=== PATIENT | female | born 1970 | race Caucasian/White ===

== ENCOUNTER → 2016-05-09 | Outpatient (CLI) | payer OTHER ==
--- NOTE | 2016-05-09 16:13 | PN ---
DATE OF SERVICE: 05/09/2016 FOLLOW-UP VISIT This is a 46-year-old lady who has been followed in the sleep center. She is here to discuss results of her diagnostic sleep study and plan of treatment. We discussed results of diagnostic sleep study in detail. No significant respiratory abnormalities were documented. Total apnea-hypopnea index was only 1.2. No abnormalities of respiration in REM sleep. Loud snoring was documented. No oxygen desaturation. Lowest oxygen level for the whole night was 90.4%. Significant amount of periodic limb movements was documented, and we discussed that with the patient. SSRI might increase the risk for periodic limb movements. [place] Sleepiness Scale today is around 8. MEDICATIONS: 1. Lexapro. 2. Prilosec. PHYSICAL EXAMINATION: Patient in no distress. VITAL SIGNS: BP 137/74. HR 58, RR 16, temperature 98. Weight 257. BMI 43.4. Oxygen saturation at room air 100%. HEENT: PERRLA, EOMI. Evaluation of oropharynx showed tongue protrudes midline. Extremely low position of soft palate. NECK: Supple. No JVD. Thyroid is not palpable. LUNGS: Clear to percussion and to auscultation. Good air exchange. No wheezing or rhonchi. HEART: S1, S2 regular. No murmurs, gallops or rubs. ABDOMEN: Obese. EXTREMITIES: No clubbing or cyanosis. HYDROPONICS GROWER: Awake, alert, and oriented x3. Cranial nerves 2 to 7 intact. There is no fasciculation or atrophy noted. No focal deficits observed. IMPRESSION: 1. No significant respiratory abnormalities by results of diagnostic sleep study; scoring was done by 4% oxygen desaturation criteria for hypopneas. 2. Significant, close to severe, periodic limb movements were documented. 3. Obesity; body mass index 43.9. 4. Possible depression. 5. Acid reflux. 6. Status post tonsillectomy. 7. Status post partial hysterectomy. 8. Status post appendectomy. PLAN: 1. Patient will be started on treatment with Mirapex 0.125 mg 1 to 2 tablets at bedtime. 2. Please check iron profile, including ferritin level. Low level of iron may increase risk for periodic limb movements. 3. SSRIs also may increase risk for periodic limb movements. 4. Sometimes patient has difficulties falling asleep at home. We may consider using trazodone at bedtime. It is an antidepressant also and it does not increase the risk for periodic limb movements. 5. No driving if feeling any sleepiness. Thank you very much for allowing me to participate in the management of your patient. Sincerely, Rc Norman MD, PhD, FAASM. Diplomat of [place] [employer], Sleep Medicine Board by [place] [employer], [place] [employer]
== END | disposition home or self-care (01) ==
LOC: SLEEP 13:22
PROVIDERS: ATTEND Internal Medicine
DX: G47.33 Obstructive sleep apnea (adult) (pediatric) (principal); E66.9 Obesity, unspecified; Z68.41 Body mass index [BMI] 40.0-44.9, adult; K21.9 Gastro-esophageal reflux disease without esophagitis; Z98.890 Other specified postprocedural states; Z79.899 Other long term (current) drug therapy

== ENCOUNTER → 2016-06-17 | Outpatient (CLI) | payer OTHER ==
[2016-06-17 11:53] VITALS: BMI 43.3
== END | disposition home or self-care (01) ==
LOC: BARWHC3 08:52
PROVIDERS: ATTEND Surgery Plastic and Reconstructive Surgery
DX: Z71.3 Dietary counseling and surveillance (principal); E66.01 Morbid (severe) obesity due to excess calories; Z68.41 Body mass index [BMI] 40.0-44.9, adult
CPT/HCPCS: 97802

== ENCOUNTER → 2016-06-27 | Outpatient (CLI) | payer OTHER ==
[2016-06-27 14:17] VITALS: BP 140/87; PULSE 69; TEMP 97.5; BMI 44.4
--- NOTE | 2016-08-19 08:08 | PN ---
DATE OF SERVICE: 06/27/2016 CHIEF COMPLAINT: History of morbid obesity. HISTORY OF PRESENT ILLNESS: Suzanne Santamaria is a 46-year-old female who came to the Bariatric Center December 2015. At her height of 5 feet 3-3/4 inches today she comes in weighing 256 pounds. She is 116 pounds overweight. Body mass index is 44.4. She has undergone medical supervised weight loss as well as Weight Watchers without success. She developed comorbidities, including obstructive sleep apnea, hypertension, including osteoarthritis of bilateral hips and knees. She is investigating her bariatric options. Incidentally, she also had a previous upper endoscopy which is consistent with a hiatal hernia. Now she now she presents for further evaluation and management. PAST MEDICAL HISTORY: 1. Morbid obesity. 2. Hypertension. 3. Osteoarthritis of the lower back. 4. Osteoarthritis of the bilateral knees. 5. Depression. 6. Anxiety. PAST SURGICAL HISTORY: 1. Appendectomy. 2. Hysterectomy. 3. Tonsillectomy. 4. Upper endoscopy. MEDICATIONS: 1. Wellbutrin. 2. Nutritional supplement. 3. Omeprazole. ALLERGIES: VICODIN INCLUDING PROPOXYPHENE. SOCIAL HISTORY: Former smoker. FAMILY HISTORY: Pertinent for morbid obesity. REVIEW OF SYSTEMS: CONSTITUTIONAL: Weight gain of 7 pounds in 6 months. Body mass index now up to 44.4. She is 116 pounds overweight. [place] body weight for her 5 foot 3 and 3/4 inch frame is 140 pounds. RESPIRATORY: History of obstructive sleep apnea. HEENT: Denies troubles with vision or hearing. No reports of dysphagia. ENDOCRINE: No reports of thyroid disorders or diabetes. RESPIRATORY: Has troubles with snoring. No reports of asthma. CARDIOVASCULAR: Denies chest palpitations. Also no reports of heart attack. Has hypertension. GASTROINTESTINAL: Has gastroesophageal reflux disease. Fatty food intolerance. She still has her gallbladder. She has trouble with orange juice. No reports of change in bowel habits. MUSCULOSKELETAL: Has bilateral feet pain including plantar fasciitis and tendinitis. Also has heel spurs. Also reports calf problems and lower back pain for which she received injections. NEURO: No reports of stroke or seizure disorders. PSYCH: History of depression including anxiety. HEMATOLOGIC: No reports of easy bruising or bleeding. PHYSICAL EXAM: VITAL SIGNS: 97.5, 69, 140/87, 16, 5-foot 3 3/4 inch frame, 256 pounds. Body mass index 44.4. ABDOMEN: Soft, nontender, nondistended. GENERAL: Well-developed, pleasant female in no acute distress. HEENT: No clubbing, cyanosis, or edema. NECK: Supple without lymphadenopathy. CHEST: Nonlabored respirations. Equal bilateral excursions. CARDIOVASCULAR: Regular rate and rhythm. MUSCULOSKELETAL: No clubbing, cyanosis or edema. NEURO: No focal or lateralizing signs. Cranial nerves II through XII grossly within normal limits. PSYCH: Appropriate affect, alert and oriented to person, place and time. LABS: Hemoglobin was normal. 14.9. Glucose was low at 72. Hemoglobin A1c was normal at 5.1. Ferritin was elevated at 278. LDL was elevated at 106. HDL elevated at 77. EKG reviewed demonstrated sinus bradycardia. Pathology report was consistent with chronic gastritis. H-pylori test was negative. STUDIES: Upper endoscopy demonstrated findings consistent with diaphragmatic hiatal hernia, 4 cm, Hill grade 3 lower esophageal valve identified. LA grade C erosive esophagitis is identified. ASSESSMENT: 1. Morbid obesity due to excess calories. 2. Body mass index reduced from 44.9 to 44.4. 3. Gastroesophageal reflux disease. 4. Osteoarthritis bilateral feet. 5. Osteoarthritis of the lower back. 6. Plantar fasciitis. 7. Prior history of attempted weight loss. 8. Family history of morbid obesity. 9. Hypertensive heart disease. 10. Obstructive sleep apnea. 11. Diaphragmatic hiatal hernia. 12. Family history of gallbladder disease. 13. Right upper quadrant pain. PLAN: 1. We have gone over bariatric options with her severity of gastroesophageal reflux disease including options among the band, sleeve and Aftab-en-Y gastric bypass. 2. To best address gastroesophageal reflux disease she has elected for a Aftab-en -Y gastric bypass. 3. Benefits and risks, including nutritional deficiencies, leaks, need for further surgery, and possibility of stricture were also reviewed in detail. 2. Inpatient hospitalization over 2 nights advised. 3. Deep venous thrombosis prophylaxis. 4. Antibiotic prophylaxis. 5. She will need CPAP treatment while inpatient. 6. She also reports moderate right upper quadrant abdominal pain including intolerance to fatty foods as well as a family history of gallbladder disease. As a result, she is also looking for cholecystectomy, at the time of the procedure. 7. Possibility of a sleeve gastrectomy was also reviewed as well. [facility]
== END | disposition home or self-care (01) ==
LOC: BARWHC3 09:06
PROVIDERS: ATTEND Surgery Plastic and Reconstructive Surgery
DX: Z01.818 Encounter for other preprocedural examination (principal); E66.01 Morbid (severe) obesity due to excess calories; Z68.41 Body mass index [BMI] 40.0-44.9, adult; I10 Essential (primary) hypertension; F32.9 Major depressive disorder, single episode, unspecified; F41.9 Anxiety disorder, unspecified
CPT/HCPCS: 99211

== ENCOUNTER → 2016-07-04 | Outpatient (CLI) | payer OTHER ==
--- NOTE | 2016-07-04 14:30 | US ---
EXAMINATION TYPE: US abdomen limited DATE OF EXAM: 07/04/2016 1:46 PM COMPARISON: NONE CLINICAL HISTORY: R10.11 RUQ pain. EXAM MEASUREMENTS: Liver Length: 15.5 cm Gallbladder Wall: 0.2 cm CBD: 0.2 cm Right Kidney: 10.5 x 4.2 x 4.8 cm Patient of large body habitus with extensive overlying midline bowel gas. Pancreas: Obscured by bowel gas Liver: There is a coarse heterogeneous echotexture, there is no mass evident. Gallbladder: wnl Evidence for sonographic Pollard's sign: no CBD: not well seen due to overlying bowel. Right Kidney: wnl , cortical medullary differentiation is maintained No evident ascites IMPRESSION: Exam is limited technically. There may be underlying fatty infiltration of the liver.
== END | disposition home or self-care (01) ==
LOC: RADUSWWP 12:56
PROVIDERS: ATTEND Surgery Plastic and Reconstructive Surgery
DX: K76.0 Fatty (change of) liver, not elsewhere classified (principal)
CPT/HCPCS: 76705

== ENCOUNTER → 2016-07-04 | Outpatient (CLI) | payer OTHER ==
[2016-07-04 14:18] LABS: Basophils % (A) 0 %; CH 32.3; CHCM 33.2; Eosinophils # (A) 0.1 k/uL (0-0.7); Eosinophils % (A) 2 %; HCT 47.1 % (34.0-46.0); HDW 2.23; HGB 15.3 gm/dL (11.4-16.0); Luc # (Auto) 0.07; Luc % (Auto) 1; Lymphocytes # (A) 1.7 k/uL (1.0-4.8); Lymphocytes % (A) 25 %; MCH 31.8 pg (25.0-35.0); MCHC 32.6 g/dL (31.0-37.0); MCV 97.7 fL (80.0-100.0); Mean Platelet Volume 6.7; Monocytes # (A) 0.3 k/uL (0-1.0); Monocytes % (A) 4 %; Neutrophils # (A) 4.5 k/uL (1.3-7.7); Neutrophils % (A) 68 %; RBC 4.82 m/uL (3.80-5.40); RDW 12.4 % (11.5-15.5); WBC 6.7 k/uL (3.8-10.6); WBC (Perox) 6.26
[2016-07-04 14:36] LABS: ALT 29 U/L (9-52); AST 22 U/L (14-36); Alkaline Phosphatase 57 U/L (38-126); Anion Gap 9 mmol/L; Blood Urea Nitrogen 14 mg/dL (7-17); Calcium 9.4 mg/dL (8.4-10.2); Carbon Dioxide 27 mmol/L (22-30); Chloride 107 mmol/L (98-107); Glucose 84 mg/dL (74-99); Non-African American GFR(MDRD) >60 (>60 ml/min/1.73 sqM); Potassium 4.2 mmol/L (3.5-5.1); Sodium 143 mmol/L (137-145); Total Bilirubin 0.7 mg/dL (0.2-1.3); Total Protein 7.2 g/dL (6.3-8.2)
== END | disposition home or self-care (01) ==
LOC: LABPAT 13:50
PROVIDERS: ATTEND Surgery Plastic and Reconstructive Surgery
DX: Z01.810 Encounter for preprocedural cardiovascular examination (principal); Z01.812 Encounter for preprocedural laboratory examination
CPT/HCPCS: 36415; 80053; 85025

== ENCOUNTER → 2016-07-17 | Outpatient (CLI) | payer OTHER | END | disposition home or self-care (01) | LOC: LABPAT 08:21 | PROVIDERS: ATTEND Anesthesiology | DX: Z53.9 Procedure and treatment not carried out, unspecified reason (principal) ==

== ENCOUNTER 2016-07-19 05:51 | Inpatient (IN) | payer OTHER ==
--- NOTE | 2016-07-19 05:27 | P.GSHP ---
History of Present Illness H&P Date: 07/19/16 CHIEF COMPLAINT: Morbid obesity. HISTORY OF PRESENT ILLNESS: Suzanne Santamaria is a 45-year-old female who presents with history of morbid obesity. She has completed medical supervised weight loss for over 6 months. She reports developing hypertension. She also reports lower back pain. As a result she has been getting injections along her back. She also reports knee pain. She has feet pain. She also reports plantar fasciitis and tendinitis including heel spurs. She also has calf problems. She has sleep apnea, which has been untreated. She has tried Weight Watchers including medical supervised weight loss, the 17-day diet and diet books. She also tried Adipex with minimal improvement of her weight. At her present height, her weight is 255 pounds. The most weight loss she experienced was at least 25 pounds now with moderate weight gain. Her personal goal is get down to between 150 to 170 pounds. At her height of 5 feet 3 inches, her ideal body weight is 140 pounds. She is 115 pounds overweight. Body mass index is 45.3. She comes in with troubles also with reflux disease and cholecystitis. Now she presents for further evaluation and management. Separately, her concerns also include fatty food intolerance. PAST MEDICAL HISTORY: 1. Morbid obesity. 2. Hypertension. 3. Osteoarthritis of the lower back. 4. Osteoarthritis of the bilateral knees. 5. Depression. 6. Anxiety. PAST SURGICAL HISTORY: 1. Appendectomy. 2. Hysterectomy. 3. Tonsillectomy. MEDICATIONS: 1. Wellbutrin. 2. Nutritional supplement. 3. Omeprazole. ALLERGIES: 1. Penicillin. 2. Vicodin. 3. Propoxyphene. SOCIAL HISTORY: Former smoker. FAMILY HISTORY: Pertinent for morbid obesity. REVIEW OF SYSTEMS: CONSTITUTIONAL: [place] body weight of 140 pounds. Her height of 5 feet 3, weight 255ounds. Body mass index 44.9. HEENT: Denies troubles with vision or hearing. No reports of dysphagia. ENDOCRINE: No reports of thyroid disorders or diabetes. RESPIRATORY: Has troubles with snoring. No reports of asthma. CARDIOVASCULAR: Denies chest palpitations. Also no reports of heart attack. Has hypertension. GASTROINTESTINAL: Has gastroesophageal reflux disease. Fatty food intolerance. She still has her gallbladder. She has trouble with orange juice. No reports of change in bowel habits. MUSCULOSKELETAL: Has bilateral feet pain including plantar fasciitis and tendinitis. Also has heel spurs. Also reports calf problems and lower back pain for which she received injections. NEURO: No reports of stroke or seizure disorders. PSYCH: History of depression including anxiety. HEMATOLOGIC: No reports of easy bruising or bleeding. PHYSICAL EXAM: VITAL SIGNS: 98.3, 64, 143/78; 5 foot 3, 255 pounds. Body mass index 44.3. GENERAL: Well-developed, pleasant female in no acute distress. HEENT: No clubbing, cyanosis, or edema. NECK: Supple without lymphadenopathy. CHEST: Nonlabored respirations. Equal bilateral excursions. CARDIOVASCULAR: Regular rate and rhythm. ABDOMEN: Soft, nontender, nondistended. MUSCULOSKELETAL: No clubbing, cyanosis or edema. NEURO: No focal or lateralizing signs. Cranial nerves II through XII grossly within normal limits. ASSESSMENT: 1. Morbid obesity due to excess calories. 2. Body mass index 45.3. 3. Gastroesophageal reflux disease. 4. Osteoarthritis bilateral feet. 5. Osteoarthritis of the lower back. 6. Plantar fasciitis. 7. Prior history of attempted weight loss. 8. Family history of morbid obesity. 9. Hypertensive heart disease. 10. Obstructive sleep apnea. 11. Chronic cholecystitis. PLAN: 1. We have gone over the 8-page second generation bariatric consent form involving benefits and risks of a gastric bypass including but not limited to possible sleeve gastrectomy, bleeding, infection, conversion to open, leaks, strictures, nutritional deficiencies, bowel obstruction, inadequate weight loss and need for further surgery including minimally invasive surgery such as but not limited robotic laparoscopic assisted techniques. 2. She has cholecystitis and will proceed with cholecystectomy at the time of her operation. 3. Inpatient hospitalization anticipated for 2 nights. 4. DVT prophylaxis. 5. Antibiotic prophylaxis. 6. She has completed her pre-op and post-op diet classes. 7. A 2-week low caloric restriction diet has been reviewed. Past Medical History Past Medical History: GERD/Reflux, Osteoarthritis (OA) Additional Past Medical History / Comment(s): JOINT PAIN, HEEL SPURS, OCCASIONAL GERD History of Any Multi-Drug Resistant Organisms: None Reported Past Surgical History: Appendectomy, Hysterectomy, Tonsillectomy Additional Past Surgical History / Comment(s): egd Past Anesthesia/Blood Transfusion Reactions: No Reported Reaction, Motion Sickness Past Psychological History: Anxiety, Depression Additional Psychological History / Comment(s): emotional eater Smoking Status: Former smoker Past Alcohol Use History: Occasional Additional Past Alcohol Use History / Comment(s): SOCIAL SMOKER FROM AGE [age] YEARS OLD Past Drug Use History: None Reported - Past Family History Mother Family Medical History: Asthma, Rheumatoid Arthritis (RA) Medications and Allergies Home Medications Medication Instructions Recorded Confirmed Type Plexus Supplement 1 tab PO DAILY 01/01/16 07/10/16 History Escitalopram [Lexapro] 10 mg PO DAILY 06/27/16 07/10/16 History Pramipexole Di-HCl [Mirapex] 0.125 mg PO HS 06/27/16 07/10/16 History Allergies Allergy/AdvReac Type Severity Reaction Status Date / Time penicillin G Allergy Rash/Hives Verified 07/10/16 10:12 hydrocodone [From Vicodin] AdvReac Nausea & Verified 07/10/16 10:12 Vomiting propoxyphene AdvReac Nausea & Verified 07/10/16 10:12 [From Darvocet-N] Vomiting
[~2016-07-19 05:51] MED LIST: ALVIMOPAN 12 MG CAPSULE PO ONE; CHLORHEXIDINE GLUCONATE 15 ML CUP MUCOUS MEM ONE; CLINDAMYCIN 900 MG in DEXTROSE 5% IN WATER 50 ML IVPB ONE; DEXAMETHASONE SOD PHOSPHATE 10 MG/ML 1 ML VIAL IV ONE; ENOXAPARIN 40 MG/0.4 ML SYRINGE SQ ONE; ENOXAPARIN 40 MG/0.4 ML SYRINGE SQ STA; GENTAMICIN 400 MG in SODIUM CHLORIDE 0.9% 100 ML IVPB ONE; MIDAZOLAM 2 MG/2 ML VIAL IV PRN; ONDANSETRON 4 MG/2 ML VIAL IVP ONE; PANTOPRAZOLE 40 MG/10 ML VIAL IV STA; SCOPOLAMINE 1.5MG/72HR PATCH TRANSDERM ONE; fentaNYL (PF) 50 MCG/ML 2 ML AMP IV PRN
[2016-07-19] MEDS ORDERED: LIDOCAINE 1% 20 ML VIAL (10MG/ML) FOR IV START SQ ONE (06:41)
[2016-07-19] MEDS: LACTATED RINGERS 1,000 ML IV SCH (07:20)
[2016-07-19] MEDS ORDERED: HYDROmorphone (PF) 1 MG/ML ONE (07:40)
[2016-07-19] MEDS ORDERED: fentaNYL (PF) 50 MCG/ML 2 ML AMP ONE (07:40)
[2016-07-19] MEDS ORDERED: PROPOFOL 10 MG/ML 20 ML VIAL IV ONE (07:40)
[2016-07-19] MEDS ORDERED: LIDOCAINE 1% INJ 10MG/ML (20 ML MDV) ONE (07:40)
[2016-07-19] MEDS ORDERED: SUCCINYLCHOLINE CHLORIDE 100 MG/5 ML SYR IV ONE (07:40)
[2016-07-19] MEDS ORDERED: ROCURONIUM BROMIDE 10 MG/ML 10 ML VIAL IV ONE (07:40)
[2016-07-19] MEDS ORDERED: ePHEDrine 50 MG/ML 1 ML AMP ONE (07:40)
[2016-07-19] MEDS ORDERED: NEOSTIGMINE 1 MG/ML 10 ML VIAL ONE (07:40)
[2016-07-19] MEDS ORDERED: GLYCOPYRROLATE 0.2 MG/ML 2 ML VIAL ONE (07:40)
[2016-07-19] MEDS ORDERED: BUPIVACAIN-EPI 0.25%-1:200,000 30 ML VIAL SQ ONE (09:21)
[2016-07-19] MEDS ORDERED: LACTATED RINGERS 1,000 ML IV ONE ×3 (11:51→14:01)
[2016-07-19] MEDS ORDERED: NALOXONE 0.4 MG/ML 1 ML VIAL IV PRN ×2 (14:32→14:34)
[2016-07-19] MEDS ORDERED: ONDANSETRON 4 MG/2 ML VIAL IVP PRN (14:32)
[2016-07-19] MEDS ORDERED: MIDAZOLAM 2 MG/2 ML VIAL IVP ONE (14:44)
[2016-07-19] MEDS ORDERED: ONDANSETRON 4 MG/2 ML VIAL IVP ONE (15:24)
[2016-07-19] MEDS: ALBUTEROL NEBULIZED 2.5 MG/3 ML INHALATION SCH ×2 (17:38→20:49)
[2016-07-19] MEDS: SIMETHICONE 40 MG/0.6 ML DROPS 2,000 MG/30 ML BOTTLE PO SCH ×2 (17:39→23:01)
[2016-07-19] MEDS: HYOSCYAMINE ORAL DROPS 1.875 MG/15 ML BOTTLE PO SCH ×2 (17:41→23:01)
[2016-07-19] MEDS: 0.9% NACL WITH KCL 20 MEQ/L 1,000 ML IV SCH (17:42)
[2016-07-19 18:11] VITALS: BMI 43.9
--- NOTE | 2016-07-19 18:44 | P.PCN ---
Date of Procedure: 07/19/16 Preoperative Diagnosis: Morbid obesity, chronic cholecystitis Postoperative Diagnosis: Same, chronic cholecystitis Procedure(s) Performed: Robotic-assisted laparoscopic cholecystectomy, robotic-assisted laparoscopic Aftab-en-Y gastric bypass 150 cm antegastric antecolic Aftab limb with 25 mm Orvil , with intraoperative esophagogastrojejunoscopy Implants: Anesthesia: GETA, local Surgeon: Regla Gamez Estimated Blood Loss (ml): 10 Pathology: other (Gallbladder) Condition: stable Disposition: floor Indications for Procedure: Operative Findings: 33 cm distance from xiphoid to pubis, ports placed at 20 cm distal to the xiphoid, 2-45 blue robotic vivek for gastric pouch with 6 Covidien 60 mm purple loads to divide large posterior stomach, negative leak test, no tension or portion along the gastrojejunal anastomosis, Turner and jejunostomy mesenteric defect closed, jejunostomy with wen-lumen of 90 mm Description of Procedure:
[2016-07-19] MEDS: fentaNYL PCA 300 MCG/30 ML SYRINGE IV PRN (19:38)
--- NOTE | 2016-07-19 19:47 | P.OP ---
Date of Procedure: 07/19/16 Preoperative Diagnosis: Postoperative Diagnosis: Procedure(s) Performed: Implants: Indications for Procedure: Operative Findings: Description of Procedure: DESCRIPTION OF PROCEDURE(S): SURGEON: SUJATA DUKES MD GLOBE MOUNTER: NURIA DENNY PREOPERATIVE DIAGNOSES: 1. Morbid obesity due to excess calories. 2. Body mass index 45.3. 3. Gastroesophageal reflux disease. 4. Osteoarthritis bilateral feet. 5. Osteoarthritis of the lower back. 6. Plantar fasciitis. 7. Prior history of attempted weight loss. 8. Family history of morbid obesity. 9. Hypertensive heart disease. 10. Obstructive sleep apnea. 11. Chronic cholecystitis. 12. Family history of gallbladder disease. POSTOPERATIVE DIAGNOSES: 1. Morbid obesity due to excess calories. 2. Body mass index 45.3. 3. Gastroesophageal reflux disease. 4. Osteoarthritis bilateral feet. 5. Osteoarthritis of the lower back. 6. Plantar fasciitis. 7. Prior history of attempted weight loss. 8. Family history of morbid obesity. 9. Hypertensive heart disease. 10. Obstructive sleep apnea. 11. Chronic cholecystitis. 12. Family history of gallbladder disease. OPERATION: 1. Robotic assisted laparoscopic Aftab-en-Y gastric bypass, 15 0cm antecolic antegastric Aftab limb, with 25 mm EEA. 2. Intraoperative esophagogastrojejunoscopy. 3. Robotic-assisted laparoscopic multiport cholecystectomy. ANESTHESIA: 60 mL 0.25% Marcaine with epinephrine. ESTIMATED BLOOD LOSS: 10 mL SPECIMENS REMOVED: Gallbladder. COMPLICATIONS: None. INDICATIONS: The patient is a very pleasant, 46-year-old female who presents with morbid obesity as her body mass index was 45.3. [place] body weight of 140 pounds for her height of 5 feet 3 inches. Today she comes in weighing 255 pounds. All surgical options for morbid obesity had been described using the [place] bariatric surgery collaborative comorbidity resolution including complication risk score. The patient had elected for a gastric bypass with possible sleeve gastrectomy. A second-generation bariatric consent form was described in detail including the possibility of protein malnutrition, leaks, gastrojejunal stricture, venous thrombosis, need for further surgery for which she demonstrated understanding. Benefits and risks of the procedure were described at length. Informed consent was obtained. DESCRIPTION: The patient was brought into the operating room theater. She was placed on a split leg table. Preoperatively she had received Lovenox subcutaneously for DVT prophylaxis. Additionally she had undergone Peridex oral solution as an oral decontaminant. After general induction, the abdomen was prepped and draped in standard sterile fashion. A Wolfe catheter was placed. Ioban draping was placed along the abdomen. A robotic da Leia Si system was prepped and primed. Initial attention was brought to the cholecystectomy portion of her procedure. The xiphoid to pubis was measured of 33 cm. At 20 cm from the xiphoid to just below the umbilicus, proposed port sites were marked with indelible marker along the anterior axillary line bilaterally, mid axillary line bilaterally with each ports were marked 10 cm from each other. The assistant golf course superintendent port was marked along the right lateral abdominal wall. The robotic stapler port was marked for the right midclavicular line. A 5 mm 0 degrees laparoscopic trocar entry was performed along the left upper quadrant. The abdomen was insufflated to 15 mmHg pressure she tolerated well. Diagnostic laparoscopy demonstrated no injury to bowel, viscera, or mesentery. The liver surface was unremarkable. No injury had occurred to the small bowel or viscera. Along the hiatus no evidence of large prominent hiatal hernia was encountered. Next, one 8 mm robotic port and 12-mm robot stapler port was were placed along the right mid abdomen. The camera 12-mm port extended length was maintained along the epigastrium. Two 8 mm port was placed along the left upper abdominal wall after exchanging the 5 mm port. The lateral port was exchanged for a bariatric length trocar. Please note that the ports were placed at least 20 cm away from the target anatomy of the gallbladder. Care was taken to check each robotic arms were safely away from collision with the bed or the patient. At the epigastrium, a median sized Neeta liver retractor was placed under direct visualization with the Iron Integration Specialist placed over the right shoulder of the patient. The additional third robotic arm was placed along the left aspect of the patient. The patient was repositioned in reverse Trendelenburg position after lowering the bed. The robot was docked along the right lateral abdomen. Using a grasper for arm 3, a grasper for arm 2, including hook cautery for arm 1 , the robotic system was docked and primed as described. Instruments were interchanged by the assistant golf course superintendent including hook cautery, Bovie cautery and large clip appliers. I had sat at the console. The gallbladder fundus was retracted over the dome of the liver. Initial attention was brought to the infundibulum which was gently retracted in the inferior lateral approach. Using hook cautery, the cystic duct including the cystic artery was carefully skeletonized. Using a large clip extractor filler, 2 clips were placed proximally, and 2 clip was placed distally along the cystic duct and then divided with cautery. Care was taken to avoid any injury to the biliary tree as the common bile duct was clearly visualized during this portion of dissection. Next, the cystic artery was clipped twice proximally, once distally and then cauterized. Electro-Bovie cautery was used to remove the gallbladder from the hepatic fossa without decompression of the gallbladder. Hemostasis was checked and found to be adequate. The specimen was docked along the right upper abdomen for preparation of the gastric bypass portion of her case. The robotic instruments were exchanged for a vessel sealer including atraumatic graspers. The transverse mesocolon, including the omentum, was reflected towards the upper abdomen. The ligament of Treitz was identified and measured 60 cm antegrade and marked using 2-0 Vicryl and SH needle. The jejunum was divided at the 60 cm point above the suture measurement. The biliopancreatic limb was held in place by the robotic arm. The Aftab limb was then measured 150 cm distally to avoid tension along the proposed gastrojejunal anastomosis. At 150 cm along the anti-mesenteric border of the Aftab limb, a jejunojejunostomy was proposed whereby enterotomies were created along the biliopancreatic limb including the Aftab limb using a Bovie cautery. A stay suture of 2-0 Vicryl was placed to align and create the anastomosis. The enterotomies along the anti-mesenteric borders were created followed by unidirectional fire from the patient's right side using 2 - 45 mm blue load Smart technology robotic stapler. The jejunojejunostomy was found to be hemostatic. The enterotomy was closed after horizontal mattress stitch of 2-0 silk used to elevate the enterotomy followed by closure with the robotic stapler blue load. Attention was now brought to the creation of the gastrojejunostomy. Moderate large dilated arterial vessels including veins were identified along the lesser curvature of the stomach. Along the lesser curvature of the stomach between the second and third veins, dissection was made along the retrogastric space to allow first firing of the robotic stable. Dense posterior gastric adhesions with moderate-sized arterial vessels were identified, hence increasing the complexity of her case. As moderate large vessels were identified after second firing of the robotic staple, the rest of the case was proceeded laparoscopic to maintain safety of the operation. I re-scrubbed into the case. The da Leia system was undocked. The robotic stapler port along the right midclavicular line was exchanged for a 12 mm port. Similarly, the left midclavicular port was exchanged for a 12 mm port. Bariatric length angled 45 scope was used for the rest the case. To address her moderate adhesions along the posterior stomach, Sonicision including fenestrated graspers were used for additional dissection of her gastric pouch that proceeded over 45 minutes of the case. Once adequately mobilized, an initial firing using a 60 mm purple load was performed toward the angle of His. To completely divide the pouch from the remnant stomach, a total of 6 - 60 mm purple loads were fired towards the angle of His for moderate and redundant posterior stomach. Hemostasis was excellent along the gastric pouch including the remnant stomach. The patient was then prepared for placement of a Orvil. The patient was Mallampati 2/3. A 25-mm Orvil was selected for placement by the nurse social work job titles. The Orvil tubing was placed anterior to the staple line of the gastric pouch and brought out through the left inferior lateral port. The Orvil was then carefully and successfully navigated with the help of the nurse social work job titles into the gastric pouch. The sutures were identified and divided. The tubing was from the 25 mm anvil. Using aseptic technique all instruments including port sites were exchanged. As the Orvil had been placed, the blind jejunal limb was brought proximally into the upper abdomen. The transverse mesocolon was previously cleaved using the robotic vessel sealer. No torsion was found upon the Aftab limb. No tension was identified as the limb was brought along the upper abdomen. The blind jejunal limb was opened using a cordless Harmonic scalpel. The 25-mm EEA stapler was brought through the left anterior lateral port site from the left side. Please note that the trocars from the Orvil tubing, including the port, were removed to minimize contamination from the oral fatimah. The EEA stapler was brought through the open jejunal limb and its needle was deployed at the antimesenteric border where the anvil were mated for approximately 1 minute upon firing. The stapler was removed after irrigating the shaft of the instrument with warm normal saline. Donuts were found to be intact and thick on both sides. The open jejunal limb defect was closed using a 60 mm kline load after releasing any tension from the blind jejunal limb. Hemostasis was checked with Sonicision along the blind jejunal limb mesentery. Care was taken to avoid any long blind limb to avoid candycane syndrome. No reinforcement sutures were needed along the gastrojejunal anastomosis. Closure of the mesenteric defects was performed, initially of the [place] defect using 2-0 silk on an Endo Stitch and a Lapra-Ty and the jejunojejunostomy mesenteric defect. I then went to the head of the bed to perform the esophagogastrojejunoscopy and a leak test. An Olympus gastroscope was passed along the posterior oropharynx which was unremarkable for any injury to the vocal cords. The scope was passed down to the proximal portion of the pouch, whereby no active bleeding was encountered. Excellent visualization of the gastrojejunostomy anastomosis, including the Aftab limb was encountered with endoscopic image obtained. The anastomosis was found to be patent. The gastrointestinal tract was desufflated. No evidence of intraoperative leak was encountered as the gastric pouch and anastomosis were submerged under normal saline solution. I then went back to the bedside of the patient, whereby with coordinated effort of the assistant golf course superintendent, irrigation was aspirated from the upper abdominal cavity. Tisseel was placed circumferentially over the anastomosis of the gastrojejunostomy. All instruments and pneumoperitoneum were evacuated from the abdominal cavity. The port correlating with the EEA stapler device was copiously irrigated with 3 L of warm normal saline solution and 50 mL of hydrogen peroxide. The fascial defect was closed using a Demetrius Johns and 0 Vicryl with 2 separate sutures. A quarter inch [place] drain was placed along the EEA stapler site and tacked using 2-0 nylon. The rest of incisions were reapproximated using 3-0 Vicryl for deep subcutaneous tissue and dermis followed by 4-0 Monocryl in a running subcuticular fashion. For local anesthetic, 0.25% Marcaine with epinephrine was infiltrated along the skin for postop analgesia. Dermabond was applied to the skin. OptiFoam dressing was placed along the EEA stapler site. At the end of the procedure, needle, sponge and instrument count had been verified correct by the cardiovascular surgical tech. She had tolerated the procedure well and was taken to the postanesthesia unit in stable condition. Intraoperative films and findings were reviewed with the patient's family. FINDINGS: 1. Negative intraoperative esophagogastrojejunoscopy leak test. 2. No fatty liver disease or hepatomegaly. 3. All defects including jejunojejunostomy [place] defects were closed. 4. Total of 8 staplers used including 2 - 45 mm blue robot vivek and 6 - 60 mm Covidien tri-stapler purple loads used to create the gastric pouch. 5. Gastrojejunostomy created using 25 mm Orvil. 6. Jejunojejunostomy created with 90 mm wen-lumen 7. Xiphoid to pubis height of 33 cm.
[2016-07-20] MEDS: fentaNYL PCA 300 MCG/30 ML SYRINGE IV PRN (02:46)
[2016-07-20] MEDS: 0.9% NACL WITH KCL 20 MEQ/L 1,000 ML IV SCH ×2 (05:16→06:08)
[2016-07-20] MEDS: HYOSCYAMINE ORAL DROPS 1.875 MG/15 ML BOTTLE PO SCH ×2 (05:17→12:06)
[2016-07-20] MEDS: SIMETHICONE 40 MG/0.6 ML DROPS 2,000 MG/30 ML BOTTLE PO SCH ×2 (05:17→12:07)
[2016-07-20 06:57] LABS: Basophils % (A) 0 %; CH 32.6; CHCM 33.8; Eosinophils % (A) 0 %; HCT 39.6 % (34.0-46.0); HDW 2.35; HGB 13.5 gm/dL (11.4-16.0); Luc # (Auto) 0.09; Luc % (Auto) 1; Lymphocytes # (A) 0.9 k/uL (1.0-4.8); Lymphocytes % (A) 6 %; MCHC 34.1 g/dL (31.0-37.0); MCV 96.9 fL (80.0-100.0); Mean Platelet Volume 7.1; Monocytes # (A) 0.5 k/uL (0-1.0); Monocytes % (A) 3 %; Neutrophils # (A) 13.5 k/uL (1.3-7.7); Neutrophils % (A) 90 %; RBC 4.08 m/uL (3.80-5.40); RDW 12.8 % (11.5-15.5); WBC (Perox) 15.41
[2016-07-20 07:05] LABS: Anion Gap 7 mmol/L; Blood Urea Nitrogen 9 mg/dL (7-17); Calcium 8.2 mg/dL (8.4-10.2); Carbon Dioxide 24 mmol/L (22-30); Chloride 107 mmol/L (98-107); Magnesium 1.8 mg/dL (1.6-2.3); Non-African American GFR(MDRD) >60 (>60 ml/min/1.73 sqM); Phosphorous 3.1 mg/dL (2.5-4.5); Potassium 4.3 mmol/L (3.5-5.1); Sodium 138 mmol/L (137-145)
[2016-07-20] MEDS: ALBUTEROL NEBULIZED 2.5 MG/3 ML INHALATION SCH ×3 (07:42→15:15)
[2016-07-20] MEDS ORDERED: 1: MVI, ADULT NO.4 WITH VIT K 10 ML, THIAMINE 100 MG, FOLIC ACID 1 MG, POTASSIUM CHLORID IV SCH ×6 (08:00)
[2016-07-20] MEDS ORDERED: PANTOPRAZOLE 40 MG/10 ML VIAL IV SCH (09:00)
[2016-07-20] MEDS ORDERED: ENOXAPARIN 40 MG/0.4 ML SYRINGE SQ SCH (09:00)
[2016-07-20] MEDS ORDERED: HYDROcodone/APAP 15 ML SOLUTION PO STA (11:28)
[2016-07-20] MEDS ORDERED: CLINDAMYCIN 900 MG in DEXTROSE 5% IN WATER 50 ML IVPB STA ×2 (11:37)
[2016-07-20] MEDS ORDERED: GENTAMICIN 400 MG in SODIUM CHLORIDE 0.9% 100 ML IVPB ONE (11:38)
--- NOTE | 2016-07-20 13:03 | P.PN ---
Subjective Principal diagnosis: Morbid obesity The patient is a 46-year-old female who underwent a robotic-assisted cholecystectomy and gastric bypass. Abdominal pain is controlled. She had passed flatus and have bowel movements. She complains of burning sensation along her legs including severe restless leg syndrome. She takes Mirapex at home. Separately nausea is controlled. Her is bedside. She has been ambulating. She is using her incentive spirometer. Objective - Vital Signs Vital signs: Vital Signs Temp 98.1 F 07/20/16 07:00 Pulse 75 07/20/16 08:00 Resp 16 07/20/16 08:00 BP 140/67 07/20/16 07:00 Pulse Ox 92 L 07/20/16 07:44 Intake & Output 07/19/16 07/20/16 07/20/16 18:59 06:59 18:59 Intake Total 4466 1725 Output Total 610 Balance 3856 1725 Weight 116.12 kg 116.12 kg Intake: IV 4466 Intake, IV Titration 1575 Amount 0.9% NaCl with KCl 20 Meq 1575 /l 1,000 ml @ 150 mls/hr IV .[id number] [facility] Rx#: [id number] Oral 150 Output: Urine 590 Estimated Blood Loss 20 Other: Voiding Method Toilet Toilet Toilet # Voids 1 1 # Bowel Movements 1 - Exam GENERAL: Well developed and in no acute distress. Pleasant. HEENT: No sclera icterus. Extraocular movements grossly intact. Moist buccal mucosa. Head is atraumatic, normocephalic. Hears conversational speech. No nasal drainage. NECK: Supple without lymphadenopathy. No JV distention. CHEST: Non-labored respirations and equal bilateral excursions. CARDIOVASCULAR: Regular rate and rhythm. Palpable 2+ radial pulses. ABDOMEN: Soft, nontender. Nondistended. Incisions laparoscopic site clean dry and intact with Dermabond. Optifoam dressing along left upper quadrant clean dry and intact. MUSCULOSKELETAL: No clubbing, cyanosis or edema. NEUROLOGIC: No focal or lateralizing signs. PSYCH: Appropriate affect. Alert and oriented to person, place and time. - Labs CBC & Chem 7: 07/20/16 06:13 07/20/16 06:13 Labs: Abnormal Lab Results - Last 24 Hours (Table) 07/20/16 07/20/16 Range/Units 06:13 06:13 WBC 15.0 H (3.8-10.6) k/uL Neutrophils # 13.5 H (1.3-7.7) k/uL Lymphocytes # 0.9 L (1.0-4.8) k/uL Calcium 8.2 L (8.4-10.2) mg/dL Assessment and Plan (1) Morbid obesity with BMI of 45.0-49.9, adult Status: Acute (2) Restless leg syndrome Status: Acute (3) Sleep apnea Status: Acute (4) Gastroesophageal reflux Status: Acute (5) Hypertension Status: Acute (6) S/P gastric bypass Status: Acute (7) Cholecystitis Status: Acute (8) S/P cholecystectomy Status: Acute Plan: 1. I went over her medications for discharge including continue with Mirapex, omeprazole. 2. She reports nausea with codeine. We'll try [place] elixir and observe prior to discharge. Otherwise Tylenol for home. She will avoid Aleve, ibuprofen, aspirin which was counseled to her and her at bedside. 3. Start protein shake diet for Friday was reviewed for optimal nutrition. 4. Continue with ambulation as well as incentive spirometry at home. She is asked to avoid laying down for prolonged period of time to decrease risk for DVTs and pulmonary embolism. 5. She is pending completion of her 24 hours of antibiotics as her case had been contaminated. 6. Anticipated follow-up in the bariatric center within 48-72 hours of discharge.
--- NOTE | 2016-07-20 14:14 | P.DS ---
Providers Date of admission: 07/19/16 05:51 Expected date of discharge: 07/20/16 Attending physician: Regla Gamez Primary care physician: Stated None - Discharge Diagnosis(es) (1) Cholecystitis Current Visit: Yes Status: Acute (2) Gastroesophageal reflux Current Visit: Yes Status: Acute (3) Hypertension Current Visit: Yes Status: Acute (4) Morbid obesity with BMI of 45.0-49.9, adult Current Visit: Yes Status: Acute (5) Restless leg syndrome Current Visit: Yes Status: Acute (6) S/P cholecystectomy Current Visit: Yes Status: Acute (7) S/P gastric bypass Current Visit: Yes Status: Acute (8) Sleep apnea Current Visit: Yes Status: Acute Hospital Course: POSTOPERATIVE DIAGNOSES: 1. Morbid obesity due to excess calories. 2. Body mass index 45.3. 3. Gastroesophageal reflux disease. 4. Osteoarthritis bilateral feet. 5. Osteoarthritis of the lower back. 6. Plantar fasciitis. 7. Prior history of attempted weight loss. 8. Family history of morbid obesity. 9. Hypertensive heart disease. 10. Obstructive sleep apnea. 11. Chronic cholecystitis. 12. Family history of gallbladder disease. The patient is a 46-year-old female who presented for a gastric bypass. She completed the bariatric program assessment. Robotic-assisted approach was performed as she also had a cholecystectomy. Postoperatively, she had been ambulating, tolerating fluids, tolerating diet, passing flatus and had a bowel movement. Her pain was well-controlled with [place] elixir which was tried prior to discharge. Postoperative antibiotics was continued given her case being contaminated from her gastric bypass. Discharge instructions were carefully reviewed including immediate follow-up at the bariatric center within 48-72 hours upon discharge. Her was was at bedside and she verbalized understanding of the discharge instructions and activities. Pertinent Studies: None. Procedures: OPERATION: 1. Robotic assisted laparoscopic Aftab-en-Y gastric bypass, 15 0cm antecolic antegastric Aftab limb, with 25 mm EEA. 2. Intraoperative esophagogastrojejunoscopy. 3. Robotic-assisted laparoscopic multiport cholecystectomy. Patient Condition at Discharge: Stable Plan - Discharge Summary New Discharge Prescriptions: HYDROcodone/APAP [[place] Elixir 7.5-325Mg/15Ml] 15 ml PO Q6HR PRN #480 ml PRN Reason: Pain Omeprazole 40 mg PO DAILY #90 capsule. Discharge Medication List Escitalopram [Lexapro] 10 mg PO DAILY 06/27/16 [History] Pramipexole Di-HCl [Mirapex] 0.125 mg PO HS 06/27/16 [History] HYDROcodone/APAP [[place] Elixir 7.5-325Mg/15Ml] 15 ml PO Q6HR PRN #480 ml [Rx] Omeprazole 40 mg PO DAILY #90 capsule. 07/20/16 [Rx] Follow up Appointment(s)/Referral(s): Regla Gamez MD [STAFF PHYSICIAN] - 07/24/16 1:30 pm (Bariatric Center) Patient Instructions/Handouts: How to Use an Incentive Spirometer (GEN), Laparoscopic Cholecystectomy (DC), Nutrition after Bariatric Surgery (GEN), Aftab-en-Y Gastric Bypass (DC) Activity/Diet/Wound Care/Special Instructions: Ok to shower no bath tub soaks. Start protein shakes on . No lifting over 4 pounds in 4 weeks. Stay well hydrated with fluids 64 ounces daily. Ambulate at least 4 times daily. Please use incentive spirometer. Discharge Disposition: HOME SELF-CARE
[2016-07-20 15:02] VITALS: BP 136/89; TEMP 98.5
[2016-07-20 15:15] VITALS: PULSE 78; RESP 17
--- NOTE | 2016-07-21 11:11 | P.PN ---
Progress Note - Text Patient called at home. She is tolerating diet. She is passing flatus. Pain is controlled. Patient advised to start her protein shakes by tomorrow. She will follow-up in the bariatric center.
== END 2016-07-20 15:33 | disposition home or self-care (01) | DRG 621 ==
LOC: 2ORWHC 05:51 → 3SUR 14:53
PROVIDERS: ADMIT Surgery Plastic and Reconstructive Surgery; ATTEND Surgery Plastic and Reconstructive Surgery
PROC: 0DJ08ZZ Inspection of Upper Intestinal Tract, Via Natural or Artificial Opening Endoscopic (ICD-10-PCS; principal; 2016-07-19 07:30)
PROC: 0D164ZA Bypass Stomach to Jejunum, Percutaneous Endoscopic Approach (ICD-10-PCS; principal; 2016-07-19 07:30)
PROC: 8E0W4CZ Robotic Assisted Procedure of Trunk Region, Percutaneous Endoscopic Approach (ICD-10-PCS; principal; 2016-07-19 07:30)
PROC: 0FT44ZZ Resection of Gallbladder, Percutaneous Endoscopic Approach (ICD-10-PCS; principal; 2016-07-19 07:30)
DX: E66.01 Morbid (severe) obesity due to excess calories (principal); I11.9 Hypertensive heart disease without heart failure; K81.1 Chronic cholecystitis; F32.9 Major depressive disorder, single episode, unspecified; F41.9 Anxiety disorder, unspecified; G25.81 Restless legs syndrome; G47.33 Obstructive sleep apnea (adult) (pediatric); K21.9 Gastro-esophageal reflux disease without esophagitis; M17.0 Bilateral primary osteoarthritis of knee; M47.9 Spondylosis, unspecified; M72.2 Plantar fascial fibromatosis; M77.30 Calcaneal spur, unspecified foot; Z68.42 Body mass index [BMI] 45.0-49.9, adult; Z79.899 Other long term (current) drug therapy; Z87.891 Personal history of nicotine dependence; Z88.5 Allergy status to narcotic agent; Z88.0 Allergy status to penicillin
CPT/HCPCS: 80051; 82310; 82565; 83735; 84100; 84520; 85025; 86850; 86900; 86901; 88304; 94640; 94760; 94762

== ENCOUNTER → 2016-07-24 | Outpatient (CLI) | payer OTHER ==
[2016-07-24 14:06] VITALS: BP 141/87; PULSE 69; RESP 16; TEMP 97.5; BMI 42.5
--- NOTE | 2016-08-23 12:49 | P.PN ---
Progress Note - Text DATE OF SERVICE: 07/24/16 CHIEF COMPLAINT: Followup gastric bypass. HISTORY OF PRESENT ILLNESS: Suzanne Santamaria is a 46 year old female status post robotic assisted laparoscopic cholecystectomy including gastric bypass. She reports doing fairly well. No reports of abdominal pain. No reports of nausea or vomiting. She is drinking fluids. She reports having bowel movements. At her height of 5 feet 3-3/4 inch frame, her ideal body weight is 140 pounds. Her highest weight is 256 pounds. She is now down to 245 pounds. She has lost 11 pounds. Her body mass index reduced from 44.4 down to 42.5. Percent excess weight loss is 9%. She is still 105 pounds overweight. PHYSICAL EXAM: VITAL SIGNS: 97.5, 69, 16, 141/87. 5 feet 3 3/4 inch frame, 245 pounds, body mass index 42.5. GENERAL: Well-developed, pleasant female in no acute distress. HEENT: No clubbing, cyanosis, or edema. NECK: Supple without lymphadenopathy. CHEST: Nonlabored respirations. Equal bilateral excursions. CARDIOVASCULAR: Regular rate and rhythm. ABDOMEN: Soft, nontender, nondistended. Incisions are clean, dry, and intact. No signs of infection. MUSCULOSKELETAL: No clubbing, cyanosis or edema. NEURO: No focal or lateralizing signs. Cranial nerves II through XII grossly within normal limits. ASSESSMENT: 1. Morbid obesity due to excess calories. 2. Body mass index reduced from 44.4 down to 42.5. 3. Status post Aftab-En-Y gastric bypass. 4. Status post cholecystectomy. PLAN: 1. She will start a protein diet, goal protein intake of 75 grams daily. 2. She will continue with Mylicon drops. 3. Recommend fluid intake of over 64 ounces daily. 4. Recommend follow up in approximately one week.
== END | disposition home or self-care (01) ==
LOC: BARWHC3 13:22
PROVIDERS: ATTEND Surgery Plastic and Reconstructive Surgery
DX: E66.01 Morbid (severe) obesity due to excess calories (principal); Z68.41 Body mass index [BMI] 40.0-44.9, adult; Z98.84 Bariatric surgery status; Z71.3 Dietary counseling and surveillance
CPT/HCPCS: 97803; 99211

== ENCOUNTER → 2016-07-31 | Outpatient (CLI) | payer OTHER ==
[2016-07-31 15:32] VITALS: BP 139/91; PULSE 59; RESP 16; TEMP 98.2; BMI 41.0
--- NOTE | 2016-08-27 15:37 | P.PN ---
Progress Note - Text DATE OF SERVICE: 07/31/16 CHIEF COMPLAINT: Followup gastric bypass. HISTORY OF PRESENT ILLNESS: Suzanne Santamaria is a 46 year old female status post robotic assisted laparoscopic cholecystectomy including gastric bypass, . She reported developing clear drainage from her left upper quadrant incision. No reports of foul-smelling discharge. No reports of cellulitis or infections. She reports no constipation. No reports of abdominal pain. No reports of nausea or vomiting. At her height of 5 feet 3-3/4 inch frame, her ideal body weight is 140 pounds. Her highest weight is 256 pounds. She is now down to 237 pounds. She has lost 19 pounds in 2 weeks. Her body mass index reduced from 44.4 down to 41.0. Percent excess weight loss is 17% . She is 97 pounds overweight. PHYSICAL EXAM: VITAL SIGNS: 5 feet 3 3/4 inch frame, 237 pounds, body mass index 41.0 Vital Signs Temp 98.2 F 07/31/16 15:29 Pulse 59 L 07/31/16 15:29 Resp 16 07/31/16 15:29 BP 139/91 07/31/16 15:29 Pulse Ox GENERAL: Well-developed, pleasant female in no acute distress. HEENT: No clubbing, cyanosis, or edema. NECK: Supple without lymphadenopathy. CHEST: Nonlabored respirations. Equal bilateral excursions. CARDIOVASCULAR: Regular rate and rhythm. ABDOMEN: Soft, nontender, nondistended. Incisions are clean, dry, and intact. No signs of infection. No active drainage noted along the left upper quadrant incision. MUSCULOSKELETAL: No clubbing, cyanosis or edema. NEURO: No focal or lateralizing signs. Cranial nerves II through XII grossly within normal limits. ASSESSMENT: 1. Morbid obesity due to excess calories. 2. Body mass index reduced from 44.4 down to 41.0 3. Status post Aftab-En-Y gastric bypass. 4. Status post cholecystectomy. PLAN: 1. She is doing very well despite having a cholecystectomy and gastric bypass. 2. Continue goal protein shakes over 65-75 g daily. 3. Recommend follow-up 1 month postop.
== END | disposition home or self-care (01) ==
LOC: BARWHC3 14:07
PROVIDERS: ATTEND Surgery Plastic and Reconstructive Surgery
DX: Z09 Encounter for follow-up examination after completed treatment for conditions other than malignant neoplasm (principal); E66.01 Morbid (severe) obesity due to excess calories; Z68.41 Body mass index [BMI] 40.0-44.9, adult; Z98.84 Bariatric surgery status; Z90.49 Acquired absence of other specified parts of digestive tract
CPT/HCPCS: 99211

== ENCOUNTER → 2016-10-16 | Outpatient (CLI) | payer OTHER ==
[2016-10-16 13:36] VITALS: BMI 36.1
[2016-10-16 14:00] VITALS: BP 130/71; PULSE 71; RESP 16; TEMP 98.2
[2016-10-16 15:11] LABS: INR 1.1 (<1.2)
[2016-10-16 15:15] LABS: CH 32.7; CHCM 32.4; HCT 43.1 % (34.0-46.0); HDW 2.14; HGB 13.6 gm/dL (11.4-16.0); MCHC 31.6 g/dL (31.0-37.0); MCV 101.4 fL (80.0-100.0); Macrocytosis Slight; Mean Platelet Volume 7.9; RBC 4.25 m/uL (3.80-5.40); WBC 7.8 k/uL (3.8-10.6)
[2016-10-16 15:27] LABS: ALT 37 U/L (9-52); AST 23 U/L (14-36); Alkaline Phosphatase 61 U/L (38-126); Anion Gap 10 mmol/L; Blood Urea Nitrogen 20 mg/dL (7-17); Calcium 9.2 mg/dL (8.4-10.2); Carbon Dioxide 22 mmol/L (22-30); Chloride 107 mmol/L (98-107); Cholesterol 144 mg/dL (<200); Glucose 90 mg/dL (74-99); HDL Cholesterol 54 mg/dL (40-60); Iron 49 ug/dL (37-170); Non-African American GFR(MDRD) >60 (>60 ml/min/1.73 sqM); Potassium 4.1 mmol/L (3.5-5.1); Sodium 139 mmol/L (137-145); Total Bilirubin 0.4 mg/dL (0.2-1.3); Total Protein 6.5 g/dL (6.3-8.2)
[2016-10-16 15:36] LABS: % Iron Saturation 18.6 % (20-50); Total Iron Binding Capacity 264 ug/dL (265-497)
[2016-10-16 16:31] LABS: Vitamin B12 601 pg/mL (239-931)
[2016-10-16 18:16] LABS: Hemoglobin A1C 5.3 % (4.2-6.1)
[2016-10-19 21:00] LABS: Selenium 129 mcg/L (63-160)
--- NOTE | 2016-11-23 04:29 | P.PN ---
Progress Note - Text DATE OF SERVICE: 10/16/16 CHIEF COMPLAINT: Followup gastric bypass. HISTORY OF PRESENT ILLNESS: Suzanne Santamaria is a 46 year old female status post robotic assisted laparoscopic cholecystectomy including gastric bypass, . She is 3 months out. She complains of plateau with weight loss. She has occasional heartburn at night. She reports that her hands or feet are cold. She also reports sciatica. She is exercising moderately. She is tolerating diet. No reports of nausea or vomiting. At her height of 5 feet 3-3/4 inch frame, her ideal body weight is 140 pounds. Her highest weight is 256 pounds. She is now down to 209 pounds. She has lost 47 pounds lifetime. Recent weight loss of 20 pounds in 2.5 months. Her body mass index reduced from 44.4 down to 36.2. Percent excess weight loss is 41%. She is 97 pounds overweight. PHYSICAL EXAM: VITAL SIGNS: 5 feet 3 3/4 inch frame, 209 pounds, body mass index 36.2 Vital Signs Temp 98.2 F 10/16/16 13:58 Pulse 71 10/16/16 13:58 Resp 16 10/16/16 13:58 BP 130/71 10/16/16 13:58 Pulse Ox GENERAL: Well-developed, pleasant female in no acute distress. HEENT: No clubbing, cyanosis, or edema. NECK: Supple without lymphadenopathy. CHEST: Nonlabored respirations. Equal bilateral excursions. CARDIOVASCULAR: Regular rate and rhythm. ABDOMEN: Soft, nontender, nondistended. Incisions granulated. No palpable incisional hernias. MUSCULOSKELETAL: No clubbing, cyanosis or edema. NEURO: No focal or lateralizing signs. Cranial nerves II through XII grossly within normal limits. ASSESSMENT: 1. Morbid obesity due to excess calories. 2. Body mass index reduced from 44.4 down to 36.2. 3. Status post Aftab-En-Y gastric bypass. 4. Status post cholecystectomy. 5. Gastroesophageal reflux disease improved. 6. Osteoarthritis bilateral feet. 7. Osteoarthritis of the lower back. 8. Plantar fasciitis. 9. Hypertensive heart disease, improved. 10. Obstructive sleep apnea, resolved. 11. Right upper quadrant pain, resolved following cholecystectomy. PLAN: 1. Recommend bariatric panel as she is almost 3 months out. 2. With her plateau, she is exercising daily. Encourage rest. 3. She has pain along her feet which may be plantar fasciitis. Recommend balance shoe support. 4. Follow-up in the [place] office.
== END | disposition home or self-care (01) ==
LOC: BARWHC3 13:06
PROVIDERS: ATTEND Surgery Plastic and Reconstructive Surgery
DX: Z48.815 Encounter for surgical aftercare following surgery on the digestive system (principal); E66.01 Morbid (severe) obesity due to excess calories; K21.9 Gastro-esophageal reflux disease without esophagitis; M19.071 Primary osteoarthritis, right ankle and foot; M19.072 Primary osteoarthritis, left ankle and foot; M47.816 Spondylosis without myelopathy or radiculopathy, lumbar region; M72.2 Plantar fascial fibromatosis; I11.9 Hypertensive heart disease without heart failure; D50.8 Other iron deficiency anemias; E89.1 Postprocedural hypoinsulinemia; K90.89 Other intestinal malabsorption; E44.0 Moderate protein-calorie malnutrition; E55.9 Vitamin D deficiency, unspecified; K74.1 Hepatic sclerosis; N19 Unspecified kidney failure; K50.90 Crohn's disease, unspecified, without complications; Z68.36 Body mass index [BMI] 36.0-36.9, adult; Z87.19 Personal history of other diseases of the digestive system; Z90.49 Acquired absence of other specified parts of digestive tract; Z98.84 Bariatric surgery status
CPT/HCPCS: 36415; 80053; 80061; 82306; 82525; 82607; 82728; 82746; 83036; 83540; 83550; 83735; 83970; 84100; 84134; 84255; 84425; 84443; 84590; 84630; 85027; 85610; 85730; 97803; 99211

== ENCOUNTER 2016-10-31 06:56 | Day surgery (SDC) | payer OTHER ==
[2016-10-30 12:02] VITALS: BMI 34.6
[~2016-10-31 06:56] MED LIST changes: -ALVIMOPAN 12 MG CAPSULE PO ONE; -CHLORHEXIDINE GLUCONATE 15 ML CUP MUCOUS MEM ONE; -CLINDAMYCIN 900 MG in DEXTROSE 5% IN WATER 50 ML IVPB ONE; -DEXAMETHASONE SOD PHOSPHATE 10 MG/ML 1 ML VIAL IV ONE; -ENOXAPARIN 40 MG/0.4 ML SYRINGE SQ ONE; -ENOXAPARIN 40 MG/0.4 ML SYRINGE SQ STA; -GENTAMICIN 400 MG in SODIUM CHLORIDE 0.9% 100 ML IVPB ONE; +LACTATED RINGERS 1,000 ML IV SCH; +LIDOCAINE 1% 20 ML VIAL (10MG/ML) FOR IV START INTRADERMA PRN; -MIDAZOLAM 2 MG/2 ML VIAL IV PRN; -ONDANSETRON 4 MG/2 ML VIAL IVP ONE; -PANTOPRAZOLE 40 MG/10 ML VIAL IV STA; -SCOPOLAMINE 1.5MG/72HR PATCH TRANSDERM ONE; -fentaNYL (PF) 50 MCG/ML 2 ML AMP IV PRN
[2016-10-31] MEDS ORDERED: LACTATED RINGERS 1,000 ML IV ONE (07:05)
[2016-10-31 07:15] VITALS: TEMP 97.1
--- NOTE | 2016-10-31 07:30 | P.GSHP ---
History of Present Illness H&P Date: 10/31/16 CHIEF COMPLAINT: GERD HISTORY OF PRESENT ILLNESS: The patient is a 46-year-old female who presents reports gastroesophageal reflux disease. Upper endoscopy was offered for further evaluation and management. PAST MEDICAL HISTORY: Please see list. PAST SURGICAL HISTORY: Please see list. MEDICATIONS: Please see list. ALLERGIES: Please see list. SOCIAL HISTORY: No illicit drug use FAMILY HISTORY: No reports of Crohn disease or ulcerative colitis. REVIEW OF ORGAN SYSTEMS: CONSTITUTIONAL: No reports of fevers or chills. GI: Denies any blood in stools or constipation. PHYSICAL EXAM: VITAL SIGNS: Stable GENERAL: Well-developed and pleasant in no acute distress. HEENT: No scleral icterus. Extraocular movements grossly intact. Moist buccal mucosa. NECK: Supple without lymphadenopathy. CHEST: Unlabored respirations. Equal bilateral excursions. CARDIOVASCULAR: Regular rate and rhythm. Distal 2+ pulses. ABDOMEN: Soft, nondistended. MUSCULOSKELETAL: No clubbing, cyanosis, or edema. ASSESSMENT: 1. Gastroesophageal reflux disease PLAN: 1. Recommend proceeding with an upper endoscopy Past Medical History Past Medical History: GERD/Reflux, Osteoarthritis (OA) Additional Past Medical History / Comment(s): , restless leg syndrome. History of Any Multi-Drug Resistant Organisms: None Reported Past Surgical History: Appendectomy, Bariatric Surgery, Hysterectomy, Tonsillectomy Additional Past Surgical History / Comment(s): egd, GASTRIC BYPASS Past Anesthesia/Blood Transfusion Reactions: No Reported Reaction, Motion Sickness Smoking Status: Former smoker - Past Family History Mother Family Medical History: Asthma, Rheumatoid Arthritis (RA) Medications and Allergies Home Medications Medication Instructions Recorded Confirmed Type Escitalopram [Lexapro] 10 mg PO DAILY PRN 06/27/16 10/31/16 History Pramipexole Di-HCl [Mirapex] 0.125 mg PO HS 06/27/16 10/31/16 History Multivitamins, Thera [Multivitamin 1 tab PO DAILY 10/30/16 10/30/16 History (formulary)] Omeprazole 40 mg PO DAILY 10/30/16 10/31/16 History Allergies Allergy/AdvReac Type Severity Reaction Status Date / Time penicillin G Allergy Rash/Hives Verified 10/31/16 07:11 hydrocodone [From Vicodin] AdvReac Nausea & Verified 10/31/16 07:11 Vomiting propoxyphene AdvReac Nausea & Verified 10/31/16 07:11 [From Vince] Vomiting Surgical - Exam Vital Signs Temp Pulse Resp BP Pulse Ox 97.1 F L 48 L 16 141/83 99 10/31/16 07:14 10/31/16 07:14 10/31/16 07:14 10/31/16 07:14 10/31/16 07:14
[2016-10-31] MEDS ORDERED: MIDAZOLAM 2 MG/2 ML VIAL ONE (07:31)
[2016-10-31] MEDS ORDERED: PROPOFOL 10 MG/ML 20 ML VIAL IV ONE (07:31)
[2016-10-31] MEDS ORDERED: LIDOCAINE 1% INJ 10MG/ML (20 ML MDV) ONE (07:31)
--- NOTE | 2016-10-31 07:47 | P.PCN ---
Date of Procedure: 10/31/16 Preoperative Diagnosis: Postoperative Diagnosis: Procedure(s) Performed: Implants: Indications for Procedure: Operative Findings: Description of Procedure: PREOPERATIVE DIAGNOSIS: Dysphagia. Nausea with vomiting. POSTOPERATIVE DIAGNOSIS: Dysphagia. Nausea with vomiting. Gastrojejunal stricture with chronic ulcer without perforation OPERATION: Esophagogastrojejunoscopy with balloon dilatation from 15 to 20 mm. SURGEON: Regla Gamez MD ANESTHESIA: MAC. INDICATIONS: The patient is a 46-year-old female who presents with a history of dysphagia including new-onset nausea and vomiting. Benefits and risks of the procedure were described. Informed consent was obtained. DESCRIPTION: The patient was brought into the endoscopy suite and laid in the left lateral decubitus position. After a timeout was confirmed, the procedure was initiated. An Olympus gastroscope was passed along the posterior oropharynx down to the distal esophagus where the squamocolumnar junction was unremarkable. The gastric pouch was entered. A gastrojejunal stricture of 15 mm was found as the pediatric gastroscope was 8.6 mm in size. A [employer] balloon dilator was placed through the scope. Final insufflation up to 20 mm was performed with a total of 2 minutes. The scope was advanced up to 50 cm from the incisors into the Aftab limb. The mucosa of the gastrojejunal anastomosis was intact. No chronic gastrojejunal marginal ulcer was encountered. No full-thickness injury was encountered. The GI tract was desufflated. The patient tolerated the procedure well. FINDINGS: Squamocolumnar junction unremarkable at 36 cm. Stricture of approximately 15 mm encountered. No chronic gastrojejunal ulceration encountered. Successful balloon dilatation to 20 mm. Anastomosis at 44 cm from the incisors. Gastric pouch 8 cm. RECOMMENDATIONS: Upper endoscopy as needed.
[2016-10-31 08:15] VITALS: BP 122/74; PULSE 49; RESP 18
== END 2016-10-31 08:31 | disposition home or self-care (01) ==
LOC: ORWHC2ENDO 06:56
PROVIDERS: ATTEND Surgery Plastic and Reconstructive Surgery
DX: K31.89 Other diseases of stomach and duodenum (principal); Z98.84 Bariatric surgery status; K21.9 Gastro-esophageal reflux disease without esophagitis; M19.90 Unspecified osteoarthritis, unspecified site; G25.81 Restless legs syndrome; Z79.899 Other long term (current) drug therapy; Z88.0 Allergy status to penicillin; Z87.891 Personal history of nicotine dependence
CPT/HCPCS: 43245; J2250; J2001; J2704; C1726

== ENCOUNTER → 2016-12-04 | Outpatient (CLI) | payer OTHER ==
--- NOTE | 2016-12-04 13:35 | PN ---
PROGRESS NOTE DATE OF SERVICE: 12/04/2016 A 46-year-old lady who has been followed in sleep center for treatment of periodic limb movements. The patient is on treatment with Mirapex. Patient takes only 0.125 mg tablet at night, at bedtime and with this regimen, she sleeps better and she does not feel discomfort in her legs at night. Without medications, she feels some discomfort in her legs while falling asleep and also during the night. [place] Sleepiness Scale today is below 5. MEDICATIONS: Omeprazole. PHYSICAL EXAM: During physical exam, lady lady without distress. VITAL SIGNS: BP 119/79, HR 54, RR 16, height 5 feet 3-1/2 inches, weight 198, BMI 34.2, temperature 98.6, oxygen saturation room air 98%. HEENT: PERRLA, EOMI. Oropharynx low position of soft palate. NECK: Supple, no JVD. Thyroid is not palpable. LUNGS: Clear to percussion and to auscultation. Good air exchange. No wheezing or rhonchi. HEART: Short systolic murmur on the area of pulmonary artery. ABDOMEN: Soft and nontender. Bowel sounds are present. No organomegaly appreciated. EXTREMITIES: No clubbing or cyanosis. APPLIANCE TECHNICIAN: Awake, alert, and oriented X3. Cranial nerves 2 to 7 intact. There is no fasciculation or atrophy. noted. No focal deficits observed. IMPRESSION: 1. Periodic limb movements clinically on control with treatment of smallest dose of Mirapex 0.125 mg at bedtime. 2. Mild obesity. Patient lost about 60 pounds since previous visit. 3. History of depression. 4. Short systolic murmur on pulmonary artery?.. 5. Acid reflux. 6. Status post tonsillectomy. 7. Status post partial hysterectomy. 8. Status post appendectomy. PLAN: 1. Patient will continue treatment with Mirapex at bedtime. 2. Continue treatment supplement with iron. 3. Please consider to do echocardiogram. 4. Sleep hygiene with regular time in bed for 8 hours. 5. No driving if feeling any sleepiness. Thank you very much for allowing me to participate in management of your patient. Sincerely, Rc Norman MD, PhD, FAASM Diplomat of [employer] Factory Clerk of [facility] [place] MMODL / IJN: [id number] /
== END ==
LOC: SLEEP 11:16
PROVIDERS: ATTEND Internal Medicine
DX: G47.61 Periodic limb movement disorder (principal); E66.9 Obesity, unspecified; F32.9 Major depressive disorder, single episode, unspecified; K21.9 Gastro-esophageal reflux disease without esophagitis; R01.1 Cardiac murmur, unspecified; Z90.89 Acquired absence of other organs; Z90.711 Acquired absence of uterus with remaining cervical stump; Z79.899 Other long term (current) drug therapy

== ENCOUNTER → 2017-05-07 | Outpatient (CLI) | payer OTHER ==
[2017-05-07 15:47] VITALS: BMI 31.4
[2017-05-07 16:15] VITALS: BP 140/80; PULSE 50; TEMP 97.9
[2017-05-07 17:32] LABS: HCT 43.3 % (34.0-46.0); HGB 14.2 gm/dL (11.4-16.0); MCH 31.8 pg (25.0-35.0); MCHC 32.7 g/dL (31.0-37.0); MCV 97.2 fL (80.0-100.0); Mean Platelet Volume 7.1; Platelet Count 191 k/uL (150-450); RBC 4.46 m/uL (3.80-5.40); RDW 12.4 % (11.5-15.5); WBC 6.6 k/uL (3.8-10.6)
[2017-05-07 17:35] LABS: INR 1.1 (<1.2); Partial Thromboplastin Time 23.4 sec (22.0-30.0); Prothrombin Time 10.5 sec (9.0-12.0)
[2017-05-07 17:48] LABS: ALT 39 U/L (9-52); AST 29 U/L (14-36); Albumin 4.1 g/dL (3.5-5.0); Alkaline Phosphatase 81 U/L (38-126); Anion Gap 9 mmol/L; Blood Urea Nitrogen 18 mg/dL (7-17); Calcium 9.1 mg/dL (8.4-10.2); Carbon Dioxide 26 mmol/L (22-30); Chloride 105 mmol/L (98-107); Cholesterol 163 mg/dL (<200); Glucose 84 mg/dL (74-99); HDL Cholesterol 71 mg/dL (40-60); LDL Cholesterol,Calculated 78 mg/dL (0-99); Phosphorus 4.2 mg/dL (2.5-4.5); Potassium 3.9 mmol/L (3.5-5.1); Sodium 140 mmol/L (137-145); Total Bilirubin 0.4 mg/dL (0.2-1.3); Total Protein 6.7 g/dL (6.3-8.2); Triglycerides 68 mg/dL (<150)
[2017-05-08 01:08] LABS: Iron Saturation 13.62 (12.00-45.00)
[2017-05-08 01:22] LABS: Vitamin D 25 Hydroxy 43.4 ng/mL (30.0-100.0)
[2017-05-08 01:58] LABS: Hemoglobin A1C 5.2 % (4.0-6.0)
[2017-05-08 02:15] LABS: Folate, Serum >24.0 ng/mL
[2017-05-08 02:27] LABS: Parathyroid Hormone Intact 62.1 pg/mL (14.0-72.0)
[2017-05-08 16:21] LABS: Zinc, Serum 160 ug/dL (60-130)
[2017-05-09 00:55] LABS: Vitamin B1 54 ug/L (38-122)
[2017-05-09 08:41] LABS: Vitamin A 36 ug/dL (38-106)
== END ==
LOC: BARWHC3 15:05
PROVIDERS: ATTEND Surgery Plastic and Reconstructive Surgery
DX: E66.01 Morbid (severe) obesity due to excess calories (principal); E21.1 Secondary hyperparathyroidism, not elsewhere classified; E89.1 Postprocedural hypoinsulinemia; D50.9 Iron deficiency anemia, unspecified; K90.9 Intestinal malabsorption, unspecified; E55.9 Vitamin D deficiency, unspecified; K74.1 Hepatic sclerosis; N19 Unspecified kidney failure; K50.90 Crohn's disease, unspecified, without complications; Z71.3 Dietary counseling and surveillance; Z68.31 Body mass index [BMI] 31.0-31.9, adult
CPT/HCPCS: 36415; 80053; 80061; 82306; 82525; 82607; 82728; 82746; 83036; 83540; 83550; 83735; 83970; 84100; 84134; 84255; 84425; 84443; 84590; 84630; 85027; 85610; 85730; 97803; 99211

== ENCOUNTER → 2017-07-30 | Outpatient (CLI) | payer OTHER ==
[2017-07-30 15:38] VITALS: BP 140/78; PULSE 95; RESP 16; TEMP 98.3; BMI 30.6
--- NOTE | 2017-07-30 16:28 | P.PN ---
Subjective Progress Note Date: 07/30/17 HPI: No reports of fatigue. She reports that she still needs her omeprazole. She still has reflux. She is very active. She is 1 year out. She reports abdominal pain low in the abdomen. Lower abdominal pain is present. She is tolerate food. PLAN: 1. She has possible irritable bowel syndrome. Recommend bentyl. 2. This is her anniversary. 3. Weight loss is almost 100 pounds. 4. Alternative medications for joint pain, and constipation are discussed. Objective - Vital Signs Vital signs: Vital Signs Temp 98.3 F 07/30/17 15:35 Pulse 95 07/30/17 15:35 Resp 16 07/30/17 15:35 BP 140/78 07/30/17 15:35 Pulse Ox Intake & Output 07/29/17 07/30/17 07/30/17 18:59 06:59 18:59 Weight 80.286 kg
[2017-07-30 17:24] LABS: HCT 40.8 % (34.0-46.0); HGB 13.3 gm/dL (11.4-16.0); MCH 32.4 pg (25.0-35.0); MCHC 32.5 g/dL (31.0-37.0); MCV 99.7 fL (80.0-100.0); Mean Platelet Volume 7.2; Platelet Count 158 k/uL (150-450); RBC 4.09 m/uL (3.80-5.40); RDW 13.1 % (11.5-15.5)
[2017-07-30 17:35] LABS: INR 1.1 (<1.2); Partial Thromboplastin Time 22.8 sec (22.0-30.0); Prothrombin Time 10.5 sec (9.0-12.0)
[2017-07-30 17:58] LABS: ALT 36 U/L (9-52); AST 24 U/L (14-36); Alkaline Phosphatase 54 U/L (38-126); Anion Gap 12 mmol/L; Blood Urea Nitrogen 21 mg/dL (7-17); Calcium 8.9 mg/dL (8.4-10.2); Carbon Dioxide 24 mmol/L (22-30); Chloride 104 mmol/L (98-107); Cholesterol 135 mg/dL (<200); Glucose 84 mg/dL (74-99); HDL Cholesterol 69 mg/dL (40-60); LDL Cholesterol,Calculated 49 mg/dL (0-99); Magnesium 1.9 mg/dL (1.6-2.3); Potassium 4.4 mmol/L (3.5-5.1); Sodium 140 mmol/L (137-145); Total Bilirubin 0.3 mg/dL (0.2-1.3); Total Protein 6.1 g/dL (6.3-8.2); Triglycerides 83 mg/dL (<150)
[2017-07-31 02:16] LABS: Hemoglobin A1C 5.2 % (4.0-6.0)
[2017-07-31 02:30] LABS: Iron Saturation 21.48 (12.00-45.00)
[2017-07-31 03:00] LABS: Parathyroid Hormone Intact 53.2 pg/mL (14.0-72.0)
[2017-07-31 12:04] LABS: Folate, Serum 20.1 ng/mL
[2017-07-31 14:21] LABS: Zinc, Serum 70 ug/dL (60-130)
[2017-08-01 05:34] LABS: Vitamin B1 55 ug/L (38-122)
[2017-08-01 05:42] LABS: Vitamin A 38 ug/dL (38-106)
== END | disposition home or self-care (01) ==
LOC: BARWHC3 15:29
PROVIDERS: ATTEND Surgery Plastic and Reconstructive Surgery
DX: E66.01 Morbid (severe) obesity due to excess calories (principal); K21.9 Gastro-esophageal reflux disease without esophagitis; R10.30 Lower abdominal pain, unspecified; E21.1 Secondary hyperparathyroidism, not elsewhere classified; D50.9 Iron deficiency anemia, unspecified; K90.9 Intestinal malabsorption, unspecified; E55.9 Vitamin D deficiency, unspecified; K74.1 Hepatic sclerosis; N19 Unspecified kidney failure; K50.90 Crohn's disease, unspecified, without complications
CPT/HCPCS: 36415; 80053; 80061; 82306; 82525; 82607; 82728; 82746; 83036; 83540; 83550; 83735; 83970; 84100; 84134; 84255; 84425; 84443; 84590; 84630; 85027; 85610; 85730; 97803; 99211

== ENCOUNTER → 2018-05-21 | Outpatient (CLI) | payer OTHER ==
--- NOTE | 2018-05-21 15:31 | SFUN ---
SLEEP CENTER FOLLOW UP NOTE DATE OF SERVICE: 05/21/2018. A 48-year-old lady who has been followed in the Sleep Center for treatment of periodic limb movements. Presently patient is on treatment with Mirapex 0.125 mg 1-2 tablets at bedtime. With this regimen her periodic limb movements, mostly under control. I did talk to the patient about her level of iron in the body because low level of iron may be related to developing of restless legs and periodic limb movements. She is planning to have her blood work soon and I believe she also should check a ferritin level. [place] Sleepiness Scale today is around 4. MEDICATIONS: Mirapex, omeprazole. PHYSICAL EXAM: Patient in no distress. BP 132/83, HR 54, RR 16, height 5 foot, 4 inches, weight 177 pounds. Body mass index 30.3, temperature 98.2, oxygen saturation at room air 100%. HEENT PERRLA, EOMI, evaluation of oropharynx showed tongue protrudes midline. Neck Supple, no JVD. Thyroid is not palpable. LUNGS Clear to percussion and to auscultation. Good air exchange. No wheezing or rhonchi. HEART S1, S2 regular. No murmurs, gallops, or rubs. ABDOMEN Soft and nontender. Bowel sounds are present. No organomegaly appreciated. EXTREMITIES No clubbing or cyanosis. ALGORITHM DESIGN ENGINEER Awake, alert, and oriented X3. Cranial nerves 2 to 7 intact. There is no fasciculation or atrophy. noted. No focal deficits observed. IMPRESSION: 1. Periodic limb movements. Patient is on treatment of the Mirapex. With treatment disorder is mostly under control. 2. Very mild obesity, patient lost another 20 pounds since last visit. 3. Status post bariatric surgery. 4. History of depression. 5. Acid reflux. 6. Status post tonsillectomy. 7. Status post partial hysterectomy. 8. Status post appendectomy. PLAN: 1. Patient will continue to take Mirapex 0.125 mg 1 to 2 tablets at bedtime. I will write her a prescription for medication. 2. Sleep hygiene with regular time in bed for at least 7-1/2 to 8 hours. 3. Patient will check her iron profile including ferritin level. 4. Precautions related to driving. No driving if feeling sleepiness. Thank you very much for allowing me to participate in the management of your patient. Sincerely, Rc Stefadu, MD, PhD, FAASM Diplomat of [place] [employer] [employer] Senior Editor of [facility] [place] MMMARLENEL / ANGELITO: [id number] /
== END | disposition home or self-care (01) ==
LOC: SLEEP 14:13
PROVIDERS: ATTEND Internal Medicine
DX: G47.61 Periodic limb movement disorder (principal); E66.9 Obesity, unspecified; K21.9 Gastro-esophageal reflux disease without esophagitis; Z68.30 Body mass index [BMI] 30.0-30.9, adult; Z86.59 Personal history of other mental and behavioral disorders; Z98.84 Bariatric surgery status; Z90.49 Acquired absence of other specified parts of digestive tract; Z90.711 Acquired absence of uterus with remaining cervical stump; Z90.09 Acquired absence of other part of head and neck; Z79.899 Other long term (current) drug therapy

== ENCOUNTER → 2018-07-15 | Outpatient (CLI) | payer OTHER ==
[2018-07-15 15:39] VITALS: BP 135/83; PULSE 53; RESP 18; TEMP 97.7; BMI 30.6
--- NOTE | 2018-07-15 16:17 | P.PN ---
Subjective Progress Note Date: 07/15/18 HPI: She reports chronic injury of the right knee. She is very active Bowflex 20 minutes. She works out 20 minutes daily. She is getting 60 to 65 grams of protein with eating foods. She eats eggs, chicken, fish. She still reports issues of constipation. She uses essential oils for her ailments. She reports chronic fatigue. She reports crampy lower abdominal pain. ABDOMEN: Unremarkable ASSESSMENT: 1. S/p Gastric bypass 2. Restless leg PLAN: 1. Bariatric labs 2. My Fitness Pal 3. Colonoscopy and lysis of adhesions reviewed but deferred after correct nutrition Objective - Vital Signs Vital signs: Vital Signs Temp 97.7 F 07/15/18 15:37 Pulse 53 L 07/15/18 15:37 Resp 18 07/15/18 15:37 BP 135/83 07/15/18 15:37 Pulse Ox 97 07/15/18 15:37 Intake & Output 07/14/18 07/15/18 07/15/18 18:59 06:59 18:59 Weight 80.286 kg
[2018-07-15 17:30] LABS: HCT 44.9 % (34.0-46.0); HGB 13.9 gm/dL (11.4-16.0); MCH 31.1 pg (25.0-35.0); MCHC 30.9 g/dL (31.0-37.0); MCV 100.6 fL (80.0-100.0); Mean Platelet Volume 6.9; Platelet Count 187 k/uL (150-450); RBC 4.46 m/uL (3.80-5.40); RDW 12.7 % (11.5-15.5); WBC 6.2 k/uL (3.8-10.6)
[2018-07-15 17:42] LABS: INR 0.9 (<1.2); Partial Thromboplastin Time 23.5 sec (22.0-30.0)
[2018-07-15 22:47] LABS: Parathyroid Hormone Intact 78.1 pg/mL (14.0-72.0)
[2018-07-16] LABS: Albumin 4.1 g/dL (3.80-4.90); Albumin/Globulin Ratio 2.41 (1.60-3.17); Anion Gap 9.2 mmol/L (4.00-12.00); Calcium 8.8 mg/dL (8.7-10.3); Carbon Dioxide 25.8 mmol/L (21.6-31.8); Globulin 1.7 g/dL (1.6-3.3); LDL Cholesterol,Calculated 63.4 mg/dL (0.0-131.0); Potassium 4.2 mmol/L (3.5-5.5); Total Bilirubin 0.4 mg/dL (0.3-1.2); Total Protein 5.8 g/dL (6.2-8.2); VLDL Calculation 11.6 mg/dL (5.00-40.00)
[2018-07-16 00:12] LABS: Hemoglobin A1C 5.5 % (4.0-6.0)
[2018-07-16 00:26] LABS: Iron Saturation 24.37 (12.00-45.00)
[2018-07-16 00:34] LABS: Vitamin D 25 Hydroxy 26.3 ng/mL (30.0-100.0)
[2018-07-16 00:40] LABS: Folate, Serum 15.9 ng/mL
[2018-07-16 13:35] LABS: Zinc, Serum 69 ug/dL (60-130)
[2018-07-16 15:18] LABS: Vitamin A 42 ug/dL (38-106)
[2018-07-17 14:12] LABS: Vit B1(Thiamine) 66 ug/L (38-122)
[2018-07-18 12:37] LABS: Selenium 120 mcg/L (63-160)
== END ==
LOC: BARWHC3 15:15
PROVIDERS: ATTEND Surgery Plastic and Reconstructive Surgery
DX: Z48.815 Encounter for surgical aftercare following surgery on the digestive system (principal); E66.01 Morbid (severe) obesity due to excess calories; G25.81 Restless legs syndrome; S89.91XA Unspecified injury of right lower leg, initial encounter; K59.00 Constipation, unspecified; E21.1 Secondary hyperparathyroidism, not elsewhere classified; E89.1 Postprocedural hypoinsulinemia; D50.9 Iron deficiency anemia, unspecified; E44.0 Moderate protein-calorie malnutrition; E55.9 Vitamin D deficiency, unspecified; K74.1 Hepatic sclerosis; N19 Unspecified kidney failure; K50.90 Crohn's disease, unspecified, without complications; R53.83 Other fatigue; R10.30 Lower abdominal pain, unspecified; Z98.84 Bariatric surgery status
CPT/HCPCS: 36415; 80053; 80061; 82306; 82525; 82607; 82728; 82746; 83036; 83540; 83550; 83735; 83970; 84100; 84134; 84255; 84425; 84443; 84590; 84630; 85027; 85610; 85730; 99211

== ENCOUNTER → 2018-08-12 | Outpatient (CLI) | payer OTHER ==
[2018-08-12 13:51] VITALS: BP 121/73; PULSE 52; RESP 16; TEMP 98.1; BMI 30.7
--- NOTE | 2018-08-12 14:51 | P.PN ---
Subjective Progress Note Date: 08/12/18 HPI: She is doing well. She reports reflux without her medications. ABDOMEN: Unremarkable ASSESSMENT: 1. Morbid obesity PLAN: 1. Prescription for Omeprazole 2. Colonoscopy at age 49 3. Upper endoscopy as needed Objective - Vital Signs Vital signs: Vital Signs Temp 98.1 F 08/12/18 13:49 Pulse 52 L 08/12/18 13:49 Resp 16 08/12/18 13:49 BP 121/73 08/12/18 13:49 Pulse Ox Intake & Output 08/11/18 08/12/18 08/12/18 18:59 06:59 18:59 Weight 80.739 kg
== END | disposition home or self-care (01) ==
LOC: BARWHC3 13:25
PROVIDERS: ATTEND Surgery Plastic and Reconstructive Surgery
DX: E66.01 Morbid (severe) obesity due to excess calories (principal); K21.9 Gastro-esophageal reflux disease without esophagitis; Z68.30 Body mass index [BMI] 30.0-30.9, adult
CPT/HCPCS: 99211

== ENCOUNTER → 2020-08-23 | Outpatient (CLI) | payer OTHER ==
[2020-08-23 15:43] LABS: HCT 43.8 % (34.0-46.0); HGB 14.9 gm/dL (11.4-16.0); MCH 33.4 pg (25.0-35.0); MCHC 33.9 g/dL (31.0-37.0); MCV 98.4 fL (80.0-100.0); Mean Platelet Volume 7.3; Platelet Count 192 k/uL (150-450); RBC 4.45 m/uL (3.80-5.40); RDW 12.5 % (11.5-15.5); WBC 7.4 k/uL (3.8-10.6)
[2020-08-23 15:53] LABS: INR 0.9 (<1.2); Partial Thromboplastin Time 22.7 sec (22.0-30.0); Prothrombin Time 9.9 sec (9.0-12.0)
[2020-08-23 16:29] VITALS: BP 140/89; PULSE 52; RESP 18; TEMP 98.4; BMI 32.7
--- NOTE | 2020-08-23 16:35 | P.PN ---
Subjective Progress Note Date: 08/23/20 DATE OF SERVICE: 08/23/2020 CHIEF COMPLAINT: Status post gastric bypass. HISTORY OF PRESENT ILLNESS: Suzanne Santamaria is a 50 year old female status post robotic gastric bypass, 07/19/16. She is 4 years out. She comes in consultation for abdominal pain. She has abdominal pain without omeprazole. She has gained 20 pounds in 2 to 3 years. She reports new chronic constipation. She also reports worsening restless leg syndrome. She is due for colonoscopy screening. She reports left lower quadrant abdominal pain. At her height of 5 feet 3-3/4 inch frame, her ideal body weight is 140 pounds. Her highest weight is 256 pounds. She is 189 pounds from 178 pounds, 1 year ago. She has lost 67 pounds lifetime. Her body mass index is reduced from 44.4 down to 32.7. Percent excess weight loss is 58%. PAST MEDICAL HISTORY: 1. Morbid obesity due to excess calories, BMI 44.4 2. Hypertensive heart disease. 3. Osteoarthritis of the lower back. 4. Osteoarthritis of the bilateral knees. 5. Depressive disorder 6. Generalized anxiety disorder. 7. Obstructive sleep apnea 8. Gastroesophageal reflux disease 9. Restless leg syndrome PAST SURGICAL HISTORY: 1. Appendectomy. 2. Hysterectomy. 3. Tonsillectomy. 4. Upper endoscopy. 5. Cholecystectomy 6. Gastric bypass MEDICATIONS: Home Medications Medication Instructions Recorded Confirmed Multivitamins, Thera [Multivitamin 1 tab PO DAILY 10/30/16 10/25/20 (formulary)] Cholecalciferol (Vitamin D3) 125 mcg PO DAILY 08/23/20 10/25/20 [Vitamin D3 (5000 Iu)] Cyanocobalamin [Vitamin B-12] 500 mcg PO DAILY 08/23/20 10/25/20 [place]-3 Fatty Acids [[place]-3] 2,500 mg PO DAILY 08/23/20 10/25/20 Calcium Carbonate [Calcium] 1,200 mg PO DAILY 09/11/20 10/25/20 L.acidoph,Paracasei, B.lactis 1 each PO DAILY 09/11/20 10/25/20 [Probiotic] Magnesium 500 mg PO DAILY 09/11/20 10/25/20 Omeprazole 20 mg PO HS 09/11/20 10/25/20 Pramipexole [Mirapex] 1.25 mg PO HS 09/11/20 10/25/20 Previous Rx's Medication Instructions Recorded Acetaminophen Tab [Tylenol Tab] 1,000 mg PO Q6HR PRN #30 tablet 10/09/20 Simethicone [Gas-X] 125 mg PO AC-TID PRN #20 capsule 10/09/20 Sucralfate [Carafate] 1 gm PO BID #30 tablet 10/25/20 ALLERGIES: Allergies Allergy/AdvReac Type Severity Reaction Status Date / Time penicillin G Allergy Rash/Hives Verified 10/25/20 16:45 hydrocodone [From Vicodin] AdvReac Nausea & Verified 10/25/20 16:45 Vomiting propoxyphene AdvReac Nausea & Verified 10/25/20 16:45 [From Darvocet-N] Vomiting SOCIAL HISTORY: Former smoker. FAMILY HISTORY: Pertinent for morbid obesity. REVIEW OF SYSTEMS: CONSTITUTIONAL: At her height of 5 feet 3-3/4 inch frame, her ideal body weight is 140 pounds. Her highest weight is 256 pounds. Her body mass index is reduced from 44.4. RESPIRATORY: History of obstructive sleep apnea, resolved. HEENT: Denies troubles with vision or hearing. No reports of dysphagia. ENDOCRINE: No reports of thyroid disorders or diabetes. CARDIOVASCULAR: Denies chest palpitations. Also no reports of heart attack. Has hypertension, resolved. GASTROINTESTINAL: Has gastroesophageal reflux disease. No dumping syndrome. MUSCULOSKELETAL: Resolved osteoarthritis. NEURO: No reports of stroke or seizure disorders. Has restless leg syndrome. PSYCH: History of depression including anxiety. HEMATOLOGIC: No reports of easy bruising or bleeding. SKIN: No skin cancer. No active rash. PHYSICAL EXAM: VITAL SIGNS: 5 feet 3 3/4 inch frame, 189 pounds, body mass index 32.7 Vital Signs Temp 98.4 F 08/23/20 16:10 Pulse 52 L 08/23/20 16:10 Resp 18 08/23/20 16:10 BP 140/89 08/23/20 16:10 Pulse Ox GENERAL: Well-developed, pleasant female in no acute distress. HEENT: No clubbing, cyanosis, or edema. NECK: Supple without lymphadenopathy. CHEST: Nonlabored respirations. Equal bilateral excursions. CARDIOVASCULAR: Regular rate and rhythm. ABDOMEN: Soft, nondistended. No palpable incisional hernias. MUSCULOSKELETAL: No clubbing, cyanosis or edema. NEURO: No focal or lateralizing signs. Cranial nerves II through XII grossly within normal limits. PSYCH: Alert and order person place and time. Appropriate affect. SKIN: Well perfused. Good skin turgor. ASSESSMENT: 1. Morbid obesity due to excess calories. 2. Body mass index reduced from 44.4 down to 32.7 3. Status post Aftab-En-Y gastric bypass. 4. Gastroesophageal reflux disease 5. Epigastric abdominal pain 6. Chronic constipation. PLAN: 1. She has pre-existing history of multiple abdominal surgeries including adhesions. Recommend lysis of adhesions. She is elevated risk with history of gastric bypass. 2. Recommend EGD and esophagram for gastroesophageal reflux disease. 3. Recommend CT abdomen and pelvis for left lower quadrant abdominal pain and diverticulitis. 4. Colonoscopy advised for colonoscopy screening. 5. EGD advised for gastroesophageal reflux disease. 6. Recommend bariatric labs Objective - Vital Signs Vital signs: Vital Signs Temp 98.4 F 08/23/20 16:10 Pulse 52 L 08/23/20 16:10 Resp 18 08/23/20 16:10 BP 140/89 08/23/20 16:10 Pulse Ox Intake & Output 08/22/20 08/23/20 08/23/20 18:59 06:59 18:59 Weight 85.774 kg - Labs CBC & Chem 7: 08/23/20 15:13 08/23/20 15:13
[2020-08-24 00:14] LABS: Hemoglobin A1C 5.4 % (4.0-6.0)
[2020-08-24 01:21] LABS: % Iron Saturation 22.16 (12.00-45.00); ALT 43 U/L (8-44); AST 41 U/L (13-35); African American GFR (CKD) 98.9 (60.0-200.0); Albumin/Globulin Ratio 2.14 (1.60-3.17); Alkaline Phosphatase 67 U/L (41-126); BUN/Creat Ratio 28.75 Ratio (12.00-20.00); Calcium 9.5 mg/dL (8.7-10.3); Carbon Dioxide 29.2 mmol/L (21.6-31.8); Chloride 105 mmol/L (96-109); Chol/HDL Ratio 2.08; Cholesterol 177 mg/dL (0-200); Globulin 2.1 g/dL (1.6-3.3); Glucose 117 mg/dL (70-110); Iron 76 ug/dL (50-170); LDL Cholesterol,Calculated 73.6 mg/dL (0.0-131.0); Non-African American GFR(CKD) 85.4 (60.0-200.0); Phosphorus 5.4 mg/dL (2.4-5.1); Potassium 4.3 mmol/L (3.5-5.5); Sodium 143 mmol/L (135-145); Total Bilirubin 0.4 mg/dL (0.3-1.2); Total Iron Binding Capacity 343 ug/dL (228-460); Total Protein 6.6 g/dL (6.2-8.2)
[2020-08-24 04:29] LABS: Folate, Serum >24.0 ng/mL
[2020-08-24 13:32] LABS: Zinc, Serum 72 ug/dL (60-130)
[2020-08-25 09:01] LABS: Vitamin A 63 ug/dL (38-106)
[2020-08-25 09:08] LABS: Vit B1(Thiamine) 82 ug/L (38-122)
[2020-08-30 17:08] LABS: Selenium 137 mcg/L (63-160)
== END ==
LOC: BARWHC3 15:10
PROVIDERS: ATTEND Surgery Plastic and Reconstructive Surgery
DX: E66.01 Morbid (severe) obesity due to excess calories (principal); K21.9 Gastro-esophageal reflux disease without esophagitis; K59.09 Other constipation; I11.9 Hypertensive heart disease without heart failure; M47.9 Spondylosis, unspecified; F32.9 Major depressive disorder, single episode, unspecified; M17.0 Bilateral primary osteoarthritis of knee; F41.9 Anxiety disorder, unspecified; Z88.0 Allergy status to penicillin; Z88.5 Allergy status to narcotic agent; Z87.891 Personal history of nicotine dependence; Z68.32 Body mass index [BMI] 32.0-32.9, adult; Z79.899 Other long term (current) drug therapy; Z98.84 Bariatric surgery status
CPT/HCPCS: 80053; 80061; 82306; 82525; 82607; 82728; 82746; 83036; 83540; 83550; 83735; 83970; 84100; 84134; 84255; 84425; 84443; 84590; 84630; 85027; 85610; 85730; 99211

== ENCOUNTER → 2020-09-07 | Outpatient (CLI) | payer OTHER ==
--- NOTE | 2020-09-07 17:42 | CT ---
EXAMINATION TYPE: CT abdomen pelvis w con DATE OF EXAM: 09/07/2020 COMPARISON: None INDICATION: Diverticulitis, lower pelvic pain DLP: 1446 mGycm, Automated exposure control for dose reduction was used. CONTRAST: 100 mL of Isovue 300. Study performed with Oral Contrast TECHNIQUE: Axial images were obtained from above the diaphragm to the pubic rami in the axial plane a t 5 mm thick sections. Reconstructed images are reviewed on the computer in the coronal plane. FINDINGS: Limited CT sections are obtained the lung bases. The lung bases are clear. CT ABDOMEN: Liver: There is a 1.1 cm cyst on the lateral right liver. Spleen: Normal Pancreas: Normal Adrenal glands: The adrenal glands are normal. Gallbladder: Normal Kidneys: No masses are evident. No hydronephrosis is present. No cysts are present. Delayed images were obtained through the kidneys, which remain unremarkable. Aorta: Normal Inferior vena cava: Normal. CT PELVIS: Loops of bowel within the abdomen and pelvis are normal. Fecal debris is within the colon. No suspici ous diverticulosis or diverticulitis is evident. There are loops of bowel which are incompletely distended or lack oral contrast limiting their evaluation. Abundant bowel gas is present. Appendix: Not visualized. No inflammatory changes or dilated tubular structures are evident. Urinary bladder: Normal. Genitourinary structures: Uterus is not identified. What may be the left ovary appears unremarkable. Right adnexal region appears normal. Osseous structures: No suspicious lytic or sclerotic lesions are evident. IMPRESSIONS: 1. No suspicious acute changes
== END | disposition home or self-care (01) ==
LOC: RADCTMAIN 12:01
PROVIDERS: ATTEND Surgery Plastic and Reconstructive Surgery
DX: R10.2 Pelvic and perineal pain (principal)
CPT/HCPCS: 74177; Q9967

== ENCOUNTER 2020-09-18 07:51 | Day surgery (SDC) | payer OTHER ==
[2020-09-11 15:33] VITALS: BMI 31.7
--- NOTE | 2020-09-18 07:33 | P.GSHP ---
History of Present Illness H&P Date: 09/18/20 CHIEF COMPLAINT: GERD and colon screen HISTORY OF PRESENT ILLNESS: The patient is a 50-year-old female who presents with gastroesophageal reflux disease and need for colon screen. Upper and lower endoscopy were offered for further evaluation and management. PAST MEDICAL HISTORY: Please see list. PAST SURGICAL HISTORY: Please see list. MEDICATIONS: Please see list. ALLERGIES: Please see list. SOCIAL HISTORY: No illicit drug use FAMILY HISTORY: No reports of Crohn disease or ulcerative colitis. REVIEW OF ORGAN SYSTEMS: CONSTITUTIONAL: No reports of fevers or chills. GI: Denies any blood in stools or constipation. PHYSICAL EXAM: VITAL SIGNS: Stable GENERAL: Well-developed pleasant in no acute distress. HEENT: No scleral icterus. Extraocular movements grossly intact. Moist buccal mucosa. NECK: Supple without lymphadenopathy. CHEST: Unlabored respirations. Equal bilateral excursions. CARDIOVASCULAR: Regular rate and rhythm. Distal 2+ pulses. ABDOMEN: Soft, nondistended. MUSCULOSKELETAL: No clubbing, cyanosis, or edema. ASSESSMENT: 1. Gastroesophageal reflux disease 2. Colon screen. PLAN: 1. Recommend proceeding with an upper and lower endoscopy Past Medical History Past Medical History: GERD/Reflux, Osteoarthritis (OA) Additional Past Medical History / Comment(s): restless leg syndrome, constipation, Hx Gastric Bypass., States nausea, dry heaves if she does not take omeprazole, difficulty swallowing some foods. History of Any Multi-Drug Resistant Organisms: None Reported Past Surgical History: Appendectomy, Bariatric Surgery, Hysterectomy, Tonsillectomy Additional Past Surgical History / Comment(s): egd, GASTRIC BYPASS (2017) Past Anesthesia/Blood Transfusion Reactions: Previous Problems w/ Anesthesia, Motion Sickness Additional Past Anesthesia/Blood Transfusion Reaction / Comment(s): difficulty waking up Past Psychological History: Anxiety, Depression Smoking Status: Former smoker, Second hand smoke exposure Past Alcohol Use History: Occasional Additional Past Alcohol Use History / Comment(s): SMOKER FROM AGE [age] YEARS OLD SMOKED 1/2 PACK PER WEEK Past Drug Use History: None Reported - Past Family History Mother Family Medical History: Asthma, Rheumatoid Arthritis (RA) Medications and Allergies Home Medications Medication Instructions Recorded Confirmed Type Multivitamins, Thera [Multivitamin 1 tab PO DAILY 10/30/16 09/11/20 History (formulary)] Cholecalciferol (Vitamin D3) 125 mcg PO DAILY 08/23/20 09/11/20 History [Vitamin D3 (5000 Iu)] Cyanocobalamin [Vitamin B-12] 500 mcg PO DAILY 08/23/20 09/11/20 History [place]-3 Fatty Acids [[place]-3] 2,500 mg PO DAILY 08/23/20 09/11/20 History Calcium Carbonate [Calcium] 1,200 mg PO DAILY 09/11/20 09/11/20 History L.acidoph,Paracasei, B.lactis 1 each PO DAILY 09/11/20 09/11/20 History [Probiotic] Magnesium 500 mg PO DAILY 09/11/20 09/11/20 History Omeprazole 40 mg PO HS 09/11/20 09/11/20 History Pramipexole [Mirapex] 0.5 mg PO HS 09/11/20 09/11/20 History Allergies Allergy/AdvReac Type Severity Reaction Status Date / Time penicillin G Allergy Rash/Hives Verified 09/11/20 15:08 hydrocodone [From Vicodin] AdvReac Nausea & Verified 09/11/20 15:08 Vomiting propoxyphene AdvReac Nausea & Verified 09/11/20 15:08 [From Darvocet-N] Vomiting
[~2020-09-18 07:51] MED LIST changes: -LACTATED RINGERS 1,000 ML IV SCH; +LIDOCAINE 1% (10MG/ML) FOR IV START INTRADERMA PRN; -LIDOCAINE 1% 20 ML VIAL (10MG/ML) FOR IV START INTRADERMA PRN
[2020-09-18 08:17] VITALS: TEMP 98.9
[2020-09-18] MEDS: LACTATED RINGERS 1,000 ML IV SCH ×2 (08:33→08:37)
[2020-09-18] MEDS ORDERED: LIDOCAINE 1% INJ 10MG/ML (20 ML MDV) ONE (08:38)
[2020-09-18] MEDS ORDERED: PROPOFOL 10 MG/ML 20 ML VIAL IV ONE (08:38)
--- NOTE | 2020-09-18 08:51 | P.PCN ---
Date of Procedure: 09/18/20 Description of Procedure: PREOPERATIVE DIAGNOSES: 1. Gastroesophageal reflux disease 2. Nausea and vomiting. 3. History of gastric bypass. 4. Epigastric abdominal pain. POSTOPERATIVE DIAGNOSES: 1. Gastroesophageal reflux disease 2. Nausea and vomiting. 3. History of gastric bypass. 4. Epigastric abdominal pain. PROCEDURE PERFORMED: Esophagogastrojejunoscopy. SURGEON: Regla Gamez MD ANESTHESIA: MAC. INDICATIONS: The patient is a 50-year-old male with prior history of Aftab-en-Y gastric bypass. She reports gastric esophageal reflux disease and epigastric abdominal pain. With her history of Aftab-en-Y gastric bypass, upper endoscopy was offered for further evaluation and management. DESCRIPTION: Patient was brought to the endoscopy suite and laid in the left lateral decubitus position. After adequate IV sedation, a bite block was placed. An Olympus gastroscope was passed along the posterior oropharynx down to the distal esophagus where the squamocolumnar junction was found at approximately 35 cm from the incisors. The anastomosis was found at 40 cm, consistent with approximately 5 cm gastric pouch. The scope was advanced 60 cm from the incisors. No evidence of foreign body was found. No evidence of active gastrojejunal ulcerations were encountered. The GI tract was desufflated. The patient tolerated the procedure well. FINDINGS: 1. No acute gastrojejunal ulceration. 2. No foreign body found along the anastomosis. PLAN: 1. Recommend upper endoscopy as needed. 2. May benefit from additional studies with history of epigastric abdominal pain such as upper GI barium study.
[2020-09-18 09:08] VITALS: RESP 18
--- NOTE | 2020-09-18 09:08 | P.PCN ---
Date of Procedure: 09/18/20 Description of Procedure: PREOPERATIVE DIAGNOSIS: Colonoscopy screening. Family history colon polyps POSTOPERATIVE DIAGNOSIS: Colonoscopy screening. Family history colon polyps OPERATION: Colonoscopy to the ascending colon SURGEON: Regla Gamez MD. ANESTHESIA: MAC. INDICATIONS: The patient is a 50-year-old female who presents for colonoscopy screening. Benefits and risks were described and informed consent was obtained. DESCRIPTION OF PROCEDURE: The patient had undergone Sutab prep. The patient had been brought into the operating room and laid in the left lateral decubitus position. After adequate intravenous sedation, the rectum was examined with 2% lidocaine jelly. No external hemorrhoids were encountered. The rectal tone was within normal limits. No lesions were palpated in the rectal vault. An Olympus colonoscope was advanced to the ascending colon. The prep was fair with residual stool along mucosa. No scattered diverticulosis was encountered. No colonic polyps were found. No evidence of focal colitis was found. Retroflexion of the scope demonstrated grade 1 internal hemorrhoids without active bleeding or inflammation. The colon was desufflated. The patient had tolerated the procedure well. Withdrawal time was over 6 minutes. FINDINGS: Aronchick preparation quality scale 3 (1-5) Internal hemorrhoids, grade 1 No external prolapsed hemorrhoids. No arteriovenous malformations. No adenomatous polyps. No focal colitis. RECOMMENDATIONS: Lower endoscopy in 5 years, 2025 Plan - Discharge Summary New Discharge Prescriptions: Continue Multivitamins, Thera [Multivitamin (formulary)] 1 tab PO DAILY Cyanocobalamin [Vitamin B-12] 500 mcg PO DAILY Cholecalciferol (Vitamin D3) [Vitamin D3 (5000 Iu)] 125 mcg PO DAILY [place]-3 Fatty Acids [[place]-3] 2,500 mg PO DAILY Omeprazole 40 mg PO HS L.acidoph,Paracasei, B.lactis [Probiotic] 1 each PO DAILY Pramipexole [Mirapex] 0.5 mg PO HS Magnesium 500 mg PO DAILY Calcium Carbonate [Calcium] 1,200 mg PO DAILY Discharge Medication List Multivitamins, Thera [Multivitamin (formulary)] 1 tab PO DAILY 10/30/16 [History] Cholecalciferol (Vitamin D3) [Vitamin D3 (5000 Iu)] 125 mcg PO DAILY 08/23/20 [History] Cyanocobalamin [Vitamin B-12] 500 mcg PO DAILY 08/23/20 [History] [place]-3 Fatty Acids [[place]-3] 2,500 mg PO DAILY 08/23/20 [History] Calcium Carbonate [Calcium] 1,200 mg PO DAILY 09/11/20 [History] L.acidoph,Paracasei, B.lactis [Probiotic] 1 each PO DAILY 09/11/20 [History] Magnesium 500 mg PO DAILY 09/11/20 [History] Omeprazole 40 mg PO HS 09/11/20 [History] Pramipexole [Mirapex] 0.5 mg PO HS 09/11/20 [History] [facility](s[facility] [place] [facility] [place] [facility] Patient Instructions/Handouts: *Sur[facility] - (Anesthesia) Endoscopy Discharge Instructions, Colonoscopy (DC) Activity/Diet/Wound Care/Special Instructions: Repeat colonoscopy in 5 years, 2025 Discharge Disposition: HOME SELF-CARE
[2020-09-18 09:51] VITALS: BP 127/76; PULSE 78
== END 2020-09-18 09:59 | disposition home or self-care (01) ==
LOC: ORWHC2ENDO 07:51
PROVIDERS: ATTEND Surgery Plastic and Reconstructive Surgery
DX: Z12.11 Encounter for screening for malignant neoplasm of colon (principal); Z83.71 Family history of colonic polyps; K64.8 Other hemorrhoids; Z79.899 Other long term (current) drug therapy; K21.9 Gastro-esophageal reflux disease without esophagitis; M19.90 Unspecified osteoarthritis, unspecified site; Z87.891 Personal history of nicotine dependence; Z77.22 Contact with and (suspected) exposure to environmental tobacco smoke (acute) (chronic); Z98.84 Bariatric surgery status; F41.9 Anxiety disorder, unspecified; F32.9 Major depressive disorder, single episode, unspecified; G25.81 Restless legs syndrome; Z88.5 Allergy status to narcotic agent; Z88.0 Allergy status to penicillin
CPT/HCPCS: 43235; J2001; J2704; G0105

== ENCOUNTER → 2020-10-05 | Outpatient (CLI) | payer OTHER ==
[2020-10-05 09:17] LABS: Basophils % (A) 0 %; Eosinophils # (A) 0.1 k/uL (0-0.7); Eosinophils % (A) 2 %; HCT 46.7 % (34.0-46.0); Lymphocytes # (A) 1.5 k/uL (1.0-4.8); Lymphocytes % (A) 27 %; MCH 32.9 pg (25.0-35.0); MCHC 32.2 g/dL (31.0-37.0); MCV 102.3 fL (80.0-100.0); Macrocytosis Slight; Mean Platelet Volume 7.8; Monocytes # (A) 0.3 k/uL (0-1.0); Monocytes % (A) 5 %; Neutrophils # (A) 3.5 k/uL (1.3-7.7); Neutrophils % (A) 64 %; Platelet Count 186 k/uL (150-450); RBC 4.57 m/uL (3.80-5.40); RDW 12.9 % (11.5-15.5); WBC 5.4 k/uL (3.8-10.6)
[2020-10-05 09:29] LABS: ALT 24 U/L (4-34); AST 34 U/L (14-36); African American GFR (CKD) >90 (>60 ml/min/1.73 sqM); Albumin 4.5 g/dL (3.5-5.0); Alkaline Phosphatase 63 U/L (38-126); Anion Gap 8 mmol/L; Blood Urea Nitrogen 18 mg/dL (7-17); Calcium 9.7 mg/dL (8.4-10.2); Carbon Dioxide 27 mmol/L (22-30); Chloride 105 mmol/L (98-107); Glucose 73 mg/dL (74-99); Non-African American GFR(CKD) >90 (>60 ml/min/1.73 sqM); Potassium 4.3 mmol/L (3.5-5.1); Sodium 140 mmol/L (137-145); Total Bilirubin 0.4 mg/dL (0.2-1.3); Total Protein 7.1 g/dL (6.3-8.2)
== END | disposition home or self-care (01) ==
LOC: LABPAT 08:31
PROVIDERS: ATTEND Surgery Plastic and Reconstructive Surgery
DX: Z01.818 Encounter for other preprocedural examination (principal); R00.1 Bradycardia, unspecified
CPT/HCPCS: 80053; 85025; 93005

== ENCOUNTER 2020-10-09 08:38 | Day surgery (SDC) | payer OTHER ==
[2020-10-06 09:09] VITALS: BMI 32.1
--- NOTE | 2020-10-09 05:43 | P.GSHP ---
History of Present Illness H&P Date: 10/09/20 CHIEF COMPLAINT: History of intra-abdominal adhesions HISTORY OF PRESENT ILLNESS: The patient is a 50-year-old female who presents with history of intra-abdominal adhesions from multiple prior surgeries including increasing abdominal pain. She now presents for diagnostic laparoscopy including lysis of adhesions. PAST MEDICAL HISTORY: Please see list. PAST SURGICAL HISTORY: Please see list. MEDICATIONS: Please see list. ALLERGIES: Please see list. SOCIAL HISTORY: Please see list. FAMILY HISTORY: Please see list. REVIEW OF ORGAN SYSTEMS: CONSTITUTIONAL: No reports of fevers or chills. PHYSICAL EXAM: VITAL SIGNS: Stable GENERAL: Well-developed pleasant and in no acute distress. HEENT: No scleral icterus. Extraocular movements grossly intact. Moist buccal mucosa. NECK: Supple without lymphadenopathy. CHEST: Unlabored respirations. Equal bilateral excursions. CARDIOVASCULAR: Regular rate and rhythm. Distal 2+ pulses. ABDOMEN: Soft, diffuse abdominal tenderness. No peritonitis. MUSCULOSKELETAL: No clubbing, cyanosis, or edema. ASSESSMENT: 1. Diffuse abdominal pain. 2. History of multiple abdominal surgeries. 3. Intra-abdominal adhesions. PLAN: 1. Robotic lysis of adhesions were described in detail including risk of injury to the intestine, need for further surgery, and open technique. 2. DVT prophylaxis. 3. Antibiotic prophylaxis. Past Medical History Past Medical History: GERD/Reflux, Osteoarthritis (OA) Additional Past Medical History / Comment(s): , restless leg syndrome. ABDOMINAL DISCOMFORT History of Any Multi-Drug Resistant Organisms: None Reported Past Surgical History: Appendectomy, Bariatric Surgery, Hysterectomy, Tonsillectomy Additional Past Surgical History / Comment(s): egd, GASTRIC BYPASS, COLONOSCOPY Past Anesthesia/Blood Transfusion Reactions: Previous Problems w/ Anesthesia, Motion Sickness Additional Past Anesthesia/Blood Transfusion Reaction / Comment(s): difficulty waking up-TOOK LONGER TO WAKE UP Smoking Status: Former smoker, Second hand smoke exposure - Past Family History Mother Family Medical History: Asthma, Rheumatoid Arthritis (RA) Medications and Allergies Home Medications Medication Instructions Recorded Confirmed Type Multivitamins, Thera [Multivitamin 1 tab PO DAILY 10/30/16 10/06/20 History (formulary)] Cholecalciferol (Vitamin D3) 125 mcg PO DAILY 08/23/20 10/06/20 History [Vitamin D3 (5000 Iu)] Cyanocobalamin [Vitamin B-12] 500 mcg PO DAILY 08/23/20 10/06/20 History [place]-3 Fatty Acids [[place]-3] 2,500 mg PO DAILY 08/23/20 10/06/20 History Calcium Carbonate [Calcium] 1,200 mg PO DAILY 09/11/20 10/06/20 History L.acidoph,Paracasei, B.lactis 1 each PO DAILY 09/11/20 10/06/20 History [Probiotic] Magnesium 500 mg PO DAILY 09/11/20 10/06/20 History Omeprazole 20 mg PO HS 09/11/20 10/06/20 History Pramipexole [Mirapex] 1.25 mg PO HS 09/11/20 10/06/20 History Allergies Allergy/AdvReac Type Severity Reaction Status Date / Time penicillin G Allergy Rash/Hives Verified 10/06/20 08:36 hydrocodone [From Vicodin] AdvReac Nausea & Verified 10/06/20 08:36 Vomiting propoxyphene AdvReac Nausea & Verified 10/06/20 08:36 [From Darvocet-N] Vomiting
[~2020-10-09 08:38] MED LIST changes: +ACETAMINOPHEN TAB 500 MG TAB PO PRN; +DEXAMETHASONE SOD PHOSPHATE 10 MG/ML 1 ML VIAL IV PRN; +DEXAMETHASONE SOD PHOSPHATE 4 MG/ML 1 ML VIAL IV ONE; +GABAPENTIN 300 MG CAP PO PRN; +HEPARIN SODIUM,PORCINE/PF 5,000 UNIT/0.5 ML SYRINGE SQ PRN; +LACTATED RINGERS 1,000 ML IV SCH; +ONDANSETRON 4 MG/2 ML VIAL IVP ONE; +SCOPOLAMINE 1.5MG/72HR PATCH TRANSDERM PRN; +diphenhydrAMINE 50 MG/ML 1 ML VIAL IVP PRN
[2020-10-09 09:04] VITALS: TEMP 98.1
[2020-10-09] MEDS ORDERED: MIDAZOLAM 2 MG/2 ML VIAL IV ONE ×2 (09:48)
[2020-10-09] MEDS ORDERED: fentaNYL (PF) 50 MCG/ML 2 ML AMP IV ONE (09:48)
[2020-10-09] MEDS ORDERED: SODIUM CHLORIDE 0.9% (PF) 10 ML VIAL ONE (10:25)
[2020-10-09] MEDS ORDERED: GLYCOPYRROLATE 0.2 MG/ML 2 ML VIAL ONE (10:25)
[2020-10-09] MEDS ORDERED: LIDOCAINE 1% INJ 10MG/ML (20 ML MDV) ONE (10:25)
[2020-10-09] MEDS ORDERED: ROPIVACAINE 5 MG/ML 30 ML VIAL ONE (10:25)
[2020-10-09] MEDS ORDERED: diphenhydrAMINE 50 MG/ML 1 ML VIAL ONE (10:25)
[2020-10-09] MEDS ORDERED: NEOSTIGMINE 1 MG/ML 10 ML VIAL ONE (10:25)
[2020-10-09] MEDS ORDERED: MIDAZOLAM 2 MG/2 ML VIAL ONE (10:25)
[2020-10-09] MEDS ORDERED: ROCURONIUM 10 MG/ML (5 ML VIAL) IV ONE (10:25)
[2020-10-09] MEDS ORDERED: SUCCINYLCHOLINE CHLORIDE 100 MG/5 ML SYR IV ONE (10:25)
[2020-10-09] MEDS ORDERED: PROPOFOL 10 MG/ML 20 ML VIAL IV ONE (10:25)
[2020-10-09] MEDS ORDERED: fentaNYL (PF) 50 MCG/ML 2 ML AMP ONE (10:25)
[2020-10-09] MEDS ORDERED: LIDOCAINE 2%-EPI 1:100,000 20 ML VIAL SQ ONE (10:40)
[2020-10-09] MEDS ORDERED: LACTATED RINGERS 1,000 ML IV ONE (11:22)
--- NOTE | 2020-10-09 12:17 | P.OP ---
Date of Procedure: 10/09/20 Description of Procedure: SURGEON: SUJATA DUKES MD PREOPERATIVE DIAGNOSES: 1. Chronic abdominal pain 2. History of gastric bypass 3. Multiple abdominal surgeries 4. Peritoneal adhesions 5. Obesity due to excess calories POSTOPERATIVE DIAGNOSES: 1. Chronic abdominal pain 2. History of gastric bypass 3. Multiple abdominal surgeries 4. Peritoneal adhesions 5. Obesity due to excess OPERATION: 1. Robotic-assisted da Leia Xi laparoscopic with extensive lysis of adhesions over 30 minutes ESTIMATED BLOOD LOSS: 5 mL. SPECIMENS REMOVED: None. COMPLICATIONS: None. OPERATIVE FINDINGS: 1. No inguinal hernias 2. Adhesions jejunojejunostomy to the retroperitoneum lysed 3. Long mesentery of the small bowel with small bowel volvulus reduced 4. Complete scarring of Turner defect and jejunojejunostomy mesenteric defect 5. Adhesions left upper quadrant lysed. 6. Abnormal adhesions of biliopancreatic limb jejunostomy to felicia limb divided 7. Terminal ileum and cecum unremarkable. INDICATIONS: The patient is a 50-year-old female who presents with epigastric abdominal pain including left upper quadrant abdominal pain. Surgical intervention with diagnostic laparoscopy, lysis of adhesions were described. Informed consent was obtained. Robotic assisted laparoscopic approach was described. Benefits and risks of the procedure including but not limited to bleeding, infection, injury to the small bowel was described. Informed consent was obtained. DESCRIPTION OF PROCEDURE: Patient was brought to the operating room, placed in supine position. After general induction, the abdomen had been prepped and draped in standard sterile fashion. The robotic da Leia XI system was primed. After a timeout protocol was performed, the patient had been prepped and draped in standard sterile fashion. The robot was docked along the right lateral abdomen. The patient was repositioned in with right side up. Please note prior to docking of the robot; however, a 5 mm 0 degrees laparoscopic trocar entry was performed along the left upper quadrant. The abdomen was insufflated to 15 mmHg pressure which she tolerated well. Diagnostic laparoscopy was performed. No incisional hernias were identified. No inguinal hernias were identified. Next, three 8 mm robotic ports were placed along the right lateral abdominal wall. The camera 8-mm port was maintained along mid-lateral abdomen. Please note that the ports were placed at least 10 to 15 cm away from the target anatomy. Instruments including graspers and vessel sealer were interchanged by the baking assistant. I sat at the console. The gastrojejunal anastomosis was intact with peritoneal adhesions of the blind jejunal limb to the jejunojejunostomy. These abnormal adhesions were lysed using vessel sealer. Blind jejunal limb over 5 cm was identified. The small bowel from the felicia limb to distal ileum was inspected. The small bowel was again investigated from the terminal ileum to the ligament of Treitz with finding of redundant mesentery with active small bowel volvulus involving the terminal ileum. Abnormal adhesions to the jejunojejunostomy to the retroperitoneum and rule him was identified and divided using vessel sealer and scissors with cautery. The mesentery of the small bowel volvulus was reduced. No herniation of bowel was found along the Turner defect or jejunojejunostomy mesenteric defect which was completely scarred. Abnormal adhesions on the left upper quadrant was lysed using vessel sealer. The terminal ileum and cecum was unremarkable. Extensive lysis of adhesions over 30 minutes was performed. The small bowel was viable. The robot was undocked. All pneumoperitoneum instruments were evacuated from the abdominal cavity. The incisions were reapproximated using 4-0 Monocryl in an interrupted subcuticular fashion. Please note along the trocar sites, local anesthetic was placed as a field block prior to insertion of all instruments. Exofin was applied to the skin. At the end of the procedure needle, sponge, and instrument count had been verified correct by the surgical services director. The patient was transferred to postanesthesia care unit in stable condition. Plan - Discharge Summary Discharge Rx Participant: Yes New Discharge Prescriptions: New Acetaminophen Tab [Tylenol Tab] 1,000 mg PO Q6HR PRN #30 tablet PRN Reason: Pain Simethicone [Gas-X] 125 mg PO AC-TID PRN #20 capsule PRN Reason: Pain Continue Multivitamins, Thera [Multivitamin (formulary)] 1 tab PO DAILY Cyanocobalamin [Vitamin B-12] 500 mcg PO DAILY Cholecalciferol (Vitamin D3) [Vitamin D3 (5000 Iu)] 125 mcg PO DAILY [place]-3 Fatty Acids [[place]-3] 2,500 mg PO DAILY Omeprazole 20 mg PO HS L.acidoph,Paracasei, B.lactis [Probiotic] 1 each PO DAILY Pramipexole [Mirapex] 1.25 mg PO HS Magnesium 500 mg PO DAILY Calcium Carbonate [Calcium] 1,200 mg PO DAILY Discharge Medication List Multivitamins, Thera [Multivitamin (formulary)] 1 tab PO DAILY 10/30/16 [History] Cholecalciferol (Vitamin D3) [Vitamin D3 (5000 Iu)] 125 mcg PO DAILY 08/23/20 [History] Cyanocobalamin [Vitamin B-12] 500 mcg PO DAILY 08/23/20 [History] [place]-3 Fatty Acids [[place]-3] 2,500 mg PO DAILY 08/23/20 [History] Calcium Carbonate [Calcium] 1,200 mg PO DAILY 09/11/20 [History] L.acidoph,Paracasei, B.lactis [Probiotic] 1 each PO DAILY 09/11/20 [History] Magnesium 500 mg PO DAILY 09/11/20 [History] Omeprazole 20 mg PO HS 09/11/20 [History] Pramipexole [Mirapex] 1.25 mg PO HS 09/11/20 [History] Acetaminophen Tab [Tylenol Tab] 1,000 mg PO Q6HR PRN #30 tablet 10/09/20 [Rx] Simethicone [Gas-X] 125 mg PO AC-TID PRN #20 capsule 10/09/20 [Rx] [place] [facility]ment[facility]Ref[place] [facility] [place] [place] [facility] [place] [facility]13[facility]20 9:00 am Patient Instructions/Handouts: *[facility] - Scopalamine Patch Instructions, *[facility] - Managing Your Pain After Surgery Without Opioids, Lysis of Abd ominal Adhesions (DC) Activity/Diet/Wound Care/Special Instructions: No lifting over 10 pounds in 2 weeks until Oct 23. May shower. No bath tub soaks for two weeks until Oct 23. Diet as tolerated. Use Tylenol, simethicone scheduled for the next 24-48 hours for best pain relief. Use ice along incisions for today to prevent swelling. Discharge Disposition: HOME SELF-CARE
[2020-10-09 12:33] VITALS: RESP 16
--- NOTE | 2020-10-09 13:11 | P.ANPRN ---
Procedure Note - Anesthesia - Nerve Block Performed Bilateral Erector Spinae Time Out Performed: Yes (09:47) Date of Procedure: 10/09/20 Procedure Start Time: :47 Procedure Stop Time: :58 Location of Patient: PreOp Indication: Acute Post-Operative Pain, Requested by Surgeon Sedation Type: Sedate with meaningful contact maintained Preparation: Sterile Prep Position: Prone Catheter: None Needle Types: Pajunk Needle Gauge: 21 Ultrasound used to visualize needle placement: Yes Ultrasound used to observe medication spread: Yes Injectate: 0.5% Ropivacaine (see comment for volume) (15cc + 10cc PF Normal saline each side) Blood Aspirated: No Pain Paresthesia on Injection Noted: No Resistance on Injection: Normal Image Stored and Saved: Yes Events: Uneventful and Well Tolerated
[2020-10-09 14:03] VITALS: BP 124/74; PULSE 54
[2020-10-10] MEDS ORDERED: Pre Op ABX Message 1 EACH MISC MISCELLANE ONE (05:00)
== END 2020-10-09 14:46 | disposition home or self-care (01) ==
LOC: OR 08:38
PROVIDERS: ATTEND Surgery Plastic and Reconstructive Surgery
DX: K66.0 Peritoneal adhesions (postprocedural) (postinfection) (principal); G89.29 Other chronic pain; Z98.84 Bariatric surgery status; K21.9 Gastro-esophageal reflux disease without esophagitis; M19.90 Unspecified osteoarthritis, unspecified site; Z87.891 Personal history of nicotine dependence; Z77.22 Contact with and (suspected) exposure to environmental tobacco smoke (acute) (chronic); G25.81 Restless legs syndrome; Z79.899 Other long term (current) drug therapy; Z88.5 Allergy status to narcotic agent; Z88.0 Allergy status to penicillin
CPT/HCPCS: 49329; S2900; 64999

== ENCOUNTER 2021-04-18 01:57 | Inpatient (IN) | payer OTHER ==
[2021-04-18] MEDS ORDERED: NALOXONE 0.4 MG/ML 1 ML VIAL IV PRN (02:46)
[2021-04-18] MEDS ORDERED: HYDROmorphone 0.5 MG/0.5 ML SYRINGE IVP PRN (02:46)
--- NOTE | 2021-04-18 02:56 | ED ---
Abdominal Pain HPI - General Chief Complaint: Abdominal Pain Stated Complaint: Bowel obstruction Time Seen by Provider: 04/18/21 02:14 Source: patient, EMS Mode of arrival: EMS Limitations: no limitations - History of Present Illness Initial Comments: This patient is a 51-year-old woman with history of previous gastric bypass surgery, transferred here from [facility]. Tonight the patient had started having severe diffuse abdominal pain as well as nausea and retching. The patient went to the other facility where she was seen and based on her symptoms had computed tomography scan of the abdomen. This did show what appeared to be small bowel obstruction. Patient was transferred here to be seen by her previous surgeon Dr. Gamez. Complaint: abdominal pain Onset/Timin -: hour(s) Location: diffuse Radiation: none Migration to: no migration Severity: severe Quality: cramping, aching Consistency: constant Improves With: medication Worsens With: nothing Associated Symptoms: nausea, vomiting - Related Data Home Medications Medication Instructions Recorded Confirmed Omeprazole 20 mg PO HS 09/11/20 04/18/21 Pramipexole [Mirapex] 0.5 - 1 mg PO HS 09/11/20 04/18/21 Previous Rx's Medication Instructions Recorded Acetaminophen Tab [Tylenol] 1,000 mg PO Q6HR PRN #12 tab 04/24/21 Levofloxacin [Levaquin] 500 mg PO DAILY 7 Days #7 tab 04/24/21 metroNIDAZOLE [Flagyl] 500 mg PO TID 7 Days #21 tab 04/24/21 Allergies Allergy/AdvReac Type Severity Reaction Status Date / Time penicillin G Allergy Rash/Hives Verified 04/18/21 09:06 hydrocodone [From Vicodin] AdvReac Nausea & Verified 04/18/21 09:06 Vomiting propoxyphene AdvReac Nausea & Verified 04/18/21 09:06 [From Darvocet-N] Vomiting Review of Systems ROS Statement: Those systems with pertinent positive or pertinent negative responses have been documented in the HPI. ROS Other: All systems not noted in ROS Statement are negative. Constitutional: Denies: fever Respiratory: Denies: cough, dyspnea Cardiovascular: Denies: chest pain, palpitations, edema Gastrointestinal: Reports: abdominal pain, nausea, vomiting. Denies: diarrhea, constipation, melena, hematochezia Genitourinary: Denies: dysuria, hematuria Musculoskeletal: Denies: back pain Skin: Denies: rash Neurological: Denies: headache, weakness Past Medical History Past Medical History: GERD/Reflux, Osteoarthritis (OA) Additional Past Medical History / Comment(s): , restless leg syndrome. History of Any Multi-Drug Resistant Organisms: None Reported Past Surgical History: Appendectomy, Bariatric Surgery, Hysterectomy, Tonsillectomy Additional Past Surgical History / Comment(s): egd, GASTRIC BYPASS lysis of adhesions 10-09- Past Anesthesia/Blood Transfusion Reactions: No Reported Reaction, Motion Sickness Additional Past Anesthesia/Blood Transfusion Reaction / Comment(s): difficulty waking up Past Psychological History: Anxiety, Depression Smoking Status: Former smoker, Second hand smoke exposure Past Alcohol Use History: Occasional Past Drug Use History: None Reported - Past Family History Mother Family Medical History: Asthma, Rheumatoid Arthritis (RA) General Exam Limitations: no limitations General appearance: alert, in no apparent distress Head exam: Present: atraumatic, normocephalic Eye exam: Present: normal appearance. Absent: scleral icterus, conjunctival injection ENT exam: Present: normal oropharynx Respiratory exam: Present: normal lung sounds bilaterally. Absent: respiratory distress, wheezes, rales, rhonchi, stridor Cardiovascular Exam: Present: regular rate, normal rhythm, normal heart sounds. Absent: systolic murmur, diastolic murmur, rubs, gallop GI/Abdominal exam: Present: soft, tenderness. Absent: distended, guarding, rebound, rigid, mass Extremities exam: Present: normal inspection, normal capillary refill. Absent: pedal edema, calf tenderness Back exam: Present: normal inspection. Absent: CVA tenderness (R), CVA tenderness (L) Neurological exam: Present: alert Skin exam: Present: warm, dry, intact, normal color. Absent: rash Course Vital Signs 04/18/21 04/18/21 01:59 03:15 Temperature 98.9 F Pulse Rate 58 L 71 Respiratory 18 16 Rate Blood Pressure 137/98 127/88 O2 Sat by Pulse 97 97 Oximetry Medical Decision Making - Lab Data Result diagrams: 04/24/21 04:42 04/24/21 04:42 Disposition Clinical Impression: Small bowel obstruction Disposition: ADMITTED IP TO THIS [facility] Condition: Stable Is patient prescribed a controlled substance at d/c from ED?: No
[2021-04-18] MEDS: SODIUM CHLORIDE 0.9% 1,000 ML IV SCH ×2 (03:30→13:04)
--- NOTE | 2021-04-18 04:12 | P.GSHP ---
History of Present Illness H&P Date: 04/18/21 CHIEF COMPLAINT: Abdominal pain with small bowel obstruction, strangulation HISTORY OF PRESENT ILLNESS: Suzanne Santamaria is a 51 year old female who presents with acute abdominal pain that started 6:00 last night almost 12 hours ago. She was unable to eat. She reports initial symptoms were reflux and she tried to take omeprazole without relief. She reports no prior episode. She had gone to her local emergency room after developing 10 out of 10 generalized abdominal pain. She went to her local emergency room [facility] where she was diagnosed with small bowel obstruction with strangulation. She was transferred to the current hospital for surgical intervention. PAST MEDICAL HISTORY: 1. Morbid obesity due to excess calories, BMI 44.4, initial 2. Hypertensive heart disease. 3. Osteoarthritis of the lower back. 4. Osteoarthritis of the bilateral knees. 5. Depressive disorder 6. Generalized anxiety disorder. 7. Obstructive sleep apnea 8. Gastroesophageal reflux disease 9. Restless leg syndrome PAST SURGICAL HISTORY: 1. Appendectomy. 2. Hysterectomy. 3. Tonsillectomy. 4. Upper endoscopy. 5. Cholecystectomy 6. Gastric bypass 07/19/16 7. Lysis of adhesions, Sep 2020 MEDICATIONS: Home Medications Medication Instructions Recorded Confirmed Multivitamins, Thera [Multivitamin 1 tab PO DAILY 10/30/16 10/25/20 (formulary)] Cholecalciferol (Vitamin D3) 125 mcg PO DAILY 08/23/20 10/25/20 [Vitamin D3 (5000 Iu)] Cyanocobalamin [Vitamin B-12] 500 mcg PO DAILY 08/23/20 10/25/20 [place]-3 Fatty Acids [[place]-3] 2,500 mg PO DAILY 08/23/20 10/25/20 Calcium Carbonate [Calcium] 1,200 mg PO DAILY 09/11/20 10/25/20 L.acidoph,Paracasei, B.lactis 1 each PO DAILY 09/11/20 10/25/20 [Probiotic] Magnesium 500 mg PO DAILY 09/11/20 10/25/20 Omeprazole 20 mg PO HS 09/11/20 10/25/20 Pramipexole [Mirapex] 1.25 mg PO HS 09/11/20 10/25/20 Previous Rx's Medication Instructions Recorded Acetaminophen Tab [Tylenol Tab] 1,000 mg PO Q6HR PRN #30 tablet 10/09/20 Simethicone [Gas-X] 125 mg PO AC-TID PRN #20 capsule 10/09/20 Sucralfate [Carafate] 1 gm PO BID #30 tablet 10/25/20 ALLERGIES: Allergies Allergy/AdvReac Type Severity Reaction Status Date / Time penicillin G Allergy Rash/Hives Verified 10/25/20 16:45 hydrocodone [From Vicodin] AdvReac Nausea & Verified 10/25/20 16:45 Vomiting propoxyphene AdvReac Nausea & Verified 10/25/20 16:45 [From Darvocet-N] Vomiting SOCIAL HISTORY: Former smoker. FAMILY HISTORY: Pertinent for morbid obesity. REVIEW OF SYSTEMS: CONSTITUTIONAL: At her height of 5 feet 3-3/4 inch frame, her ideal body weight is 140 pounds. Her highest weight is 256 pounds. Her body mass index is reduced from 44.4. RESPIRATORY: History of obstructive sleep apnea, resolved. HEENT: Denies troubles with vision or hearing. No reports of dysphagia. ENDOCRINE: No reports of thyroid disorders or diabetes. CARDIOVASCULAR: Denies chest palpitations. Also no reports of heart attack. Has hypertension, resolved. GASTROINTESTINAL: Has gastroesophageal reflux disease. No dumping syndrome. MUSCULOSKELETAL: Resolved osteoarthritis. NEURO: No reports of stroke or seizure disorders. Has restless leg syndrome. PSYCH: History of depression including anxiety. HEMATOLOGIC: No reports of easy bruising or bleeding. SKIN: No skin cancer. No active rash. PHYSICAL EXAM: VITAL SIGNS: 5 feet 4.5 inch frame, 197 pounds, body mass index 33.3 Vital Signs Temp 98.9 F 04/18/21 01:59 Pulse 71 04/18/21 03:15 Resp 16 04/18/21 03:15 BP 127/88 04/18/21 03:15 Pulse Ox 97 04/18/21 03:15 Intake & Output 04/17/21 04/17/21 04/18/21 06:59 18:59 06:59 Weight 89.358 kg GENERAL: Well-developed, pleasant female in no acute distress. HEENT: No clubbing, cyanosis, or edema. NECK: Supple without lymphadenopathy. CHEST: Nonlabored respirations. Equal bilateral excursions. CARDIOVASCULAR: Regular rate and rhythm. ABDOMEN: Mild distention. Diffusely tender. Peritonitis. MUSCULOSKELETAL: No clubbing, cyanosis or edema. NEURO: No focal or lateralizing signs. Cranial nerves II through XII grossly within normal limits. PSYCH: Alert and order person place and time. Appropriate affect. SKIN: Well perfused. Good skin turgor. LABS: Reviewed. Hgb and WBC normal from outside facility. STUDIES: CT of the abdomen and pelvis independently reviewed from outside facility demonstrating localized dilated small bowel loops of the left upper quadrant involving common channel of gastric bypass. Findings consistent with internal hernia. This is my independent interpretation. RADIOLOGY: CT of the abdomen and pelvis report From outside facility demonstrates small bowel obstruction with internal hernia and areas of strangulation. ASSESSMENT: 1. Abnormal CT with acute bowel obstruction with strangulation PLAN: 1. Emergent exploratory laparotomy described due to acute bowel obstruction and close loop obstruction/strangulation. Possible bowel resection prolonged hospitalization also reviewed. 2. Inpatient hospitalization greater than 2 nights 3. IV fluid bolus to little normal saline 4. Repeat CBC and chemistries Past Medical History Past Medical History: GERD/Reflux, Osteoarthritis (OA) Additional Past Medical History / Comment(s): , restless leg syndrome. History of Any Multi-Drug Resistant Organisms: None Reported Past Surgical History: Appendectomy, Bariatric Surgery, Hysterectomy, Tonsillectomy Additional Past Surgical History / Comment(s): egd, GASTRIC BYPASS lysis of adhesions 10-09-20 Past Anesthesia/Blood Transfusion Reactions: No Reported Reaction, Motion Sic kness Additional Past Anesthesia/Blood Transfusion Reaction / Comment(s): difficulty waking up Past Psychological History: Anxiety, Depression Smoking Status: Former smoker, Second hand smoke exposure Past Alcohol Use History: Occasional Past Drug Use History: None Reported - Past Family History Mother Family Medical History: Asthma, Rheumatoid Arthritis (RA) Medications and Allergies Home Medications Medication Instructions Recorded Confirmed Type Multivitamins, Thera [Multivitamin 1 tab PO DAILY 10/30/16 10/25/20 History (formulary)] Cholecalciferol (Vitamin D3) 125 mcg PO DAILY 08/23/20 10/25/20 History [Vitamin D3 (5000 Iu)] Cyanocobalamin [Vitamin B-12] 500 mcg PO DAILY 08/23/20 10/25/20 History [place]-3 Fatty Acids [[place]-3] 2,500 mg PO DAILY 08/23/20 10/25/20 History Calcium Carbonate [Calcium] 1,200 mg PO DAILY 09/11/20 10/25/20 History L.acidoph,Paracasei, B.lactis 1 each PO DAILY 09/11/20 10/25/20 History [Probiotic] Magnesium 500 mg PO DAILY 09/11/20 10/25/20 History Omeprazole 20 mg PO HS 09/11/20 10/25/20 History Pramipexole [Mirapex] 1.25 mg PO HS 09/11/20 10/25/20 History Acetaminophen Tab [Tylenol Tab] 1,000 mg PO Q6HR PRN #30 tablet 10/09/20 10/25/20 Rx Simethicone [Gas-X] 125 mg PO AC-TID PRN #20 capsule 10/09/20 10/25/20 Rx Sucralfate [Carafate] 1 gm PO BID #30 tablet 10/25/20 Rx Allergies Allergy/AdvReac Type Severity Reaction Status Date / Time penicillin G Allergy Rash/Hives Verified 10/25/20 16:45 hydrocodone [From Vicodin] AdvReac Nausea & Verified 10/25/20 16:45 Vomiting propoxyphene AdvReac Nausea & Verified 10/25/20 16:45 [From Darvocet-N] Vomiting Surgical - Exam Vital Signs Temp Pulse Resp BP Pulse Ox 98.9 F 58 L 18 137/98 97 04/18/21 01:59 04/18/21 01:59 04/18/21 01:59 04/18/21 01:59 04/18/21 01:59 Assessment and Plan (1) Small bowel obstruction Current Visit: Yes Status: Acute Code(s): K56.609 - UNSP INTESTNL OBST, UNSP TO PARTIAL VERSUS COMPLETE OBST SNOMED Code(s): 696361219 (2) Gastroesophageal reflux Current Visit: No Status: Acute Code(s): K21.9 - GASTRO-ESOPHAGEAL REFLUX DISEASE WITHOUT ESOPHAGITIS SNOMED Code(s): 858985710 (3) S/P gastric bypass Current Visit: No Status: Acute Code(s): Z98.84 - BARIATRIC SURGERY STATUS SNOMED Code(s): 451331907
[2021-04-18] MEDS ORDERED: SODIUM CHLORIDE 0.9% 1,000 ML IV ONE ×4 (04:13→08:30)
[2021-04-18] MEDS ORDERED: HEPARIN SODIUM,PORCINE/PF 5,000 UNIT/0.5 ML SYRINGE SQ PRN (04:15)
[2021-04-18] MEDS ORDERED: ONDANSETRON 4 MG/2 ML VIAL ONE (05:01)
[2021-04-18] MEDS ORDERED: PHENYLEPHRINE-0.9% NACL SYG 1,000 MCG/10 ML SYRINGE ONE (05:01)
[2021-04-18] MEDS ORDERED: ROCURONIUM 10 MG/ML (5 ML VIAL) IV ONE (05:01)
[2021-04-18] MEDS ORDERED: MORPHINE SULFATE (PF) 0.3 MG/0.3 ML SYR ONE (05:01)
[2021-04-18] MEDS ORDERED: MIDAZOLAM 2 MG/2 ML VIAL ONE (05:01)
[2021-04-18] MEDS ORDERED: SUCCINYLCHOLINE CHLORIDE 100 MG/5 ML SYR IV ONE (05:01)
[2021-04-18] MEDS ORDERED: INDOCYANINE GREEN 25 MG VIAL IV ONE (05:01)
[2021-04-18] MEDS ORDERED: PROPOFOL 10 MG/ML 20 ML VIAL IV ONE (05:01)
[2021-04-18] MEDS ORDERED: fentaNYL (PF) 50 MCG/ML 2 ML AMP ONE (05:01)
[2021-04-18 05:04] LABS: Basophils % (A) 0 %; Eosinophils # (A) 0.1 k/uL (0-0.7); Eosinophils % (A) 1 %; HCT 51.1 % (34.0-46.0); HGB 16.5 gm/dL (11.4-16.0); Lymphocytes # (A) 0.3 k/uL (1.0-4.8); Lymphocytes % (A) 3 %; MCH 32.8 pg (25.0-35.0); MCHC 32.3 g/dL (31.0-37.0); MCV 101.4 fL (80.0-100.0); Mean Platelet Volume 7.5; Monocytes # (A) 0.2 k/uL (0-1.0); Monocytes % (A) 2 %; Neutrophils # (A) 12.3 k/uL (1.3-7.7); Neutrophils % (A) 94 %; Platelet Count 202 k/uL (150-450); RBC 5.04 m/uL (3.80-5.40); RDW 12.6 % (11.5-15.5); WBC 13.1 k/uL (3.8-10.6)
[2021-04-18] MEDS ORDERED: LACTATED RINGERS 1,000 ML IV ONE ×3 (05:29→06:34)
[2021-04-18 05:42] LABS: ALT 19 U/L (4-34); AST 28 U/L (14-36); African American GFR (CKD) >90 (>60 ml/min/1.73 sqM); Albumin 4.2 g/dL (3.5-5.0); Albumin/Globulin Ratio 1.6; Alkaline Phosphatase 55 U/L (38-126); Amylase 56 U/L (30-110); Anion Gap 8 mmol/L; Blood Urea Nitrogen 13 mg/dL (7-17); Calcium 8.9 mg/dL (8.4-10.2); Carbon Dioxide 25 mmol/L (22-30); Chloride 101 mmol/L (98-107); Globulin 2.6 g/dL; Glucose 156 mg/dL (74-99); Lipase 35 U/L (23-300); Non-African American GFR(CKD) >90 (>60 ml/min/1.73 sqM); Potassium 4.7 mmol/L (3.5-5.1); Sodium 134 mmol/L (137-145); Total Bilirubin 0.7 mg/dL (0.2-1.3); Total Protein 6.8 g/dL (6.3-8.2)
[2021-04-18] MEDS ORDERED: HYDROmorphone 0.5 MG/0.5 ML SYRINGE IVP ONE ×3 (07:28→07:54)
--- NOTE | 2021-04-18 07:34 | P.OP ---
Date of Procedure: 04/18/21 Preoperative Diagnosis: Bowel obstruction Postoperative Diagnosis: Small bowel obstruction with ischemia due to closed loop internal hernia, peritoneal adhesions Procedure(s) Performed: 1. Exploratory laparotomy with lysis of adhesions 2. Small bowel decompressions over 1500 mL enteric content via enterotomy proximal Aftab limb, 15 cm from gastrojejunal anastomosis 3. Reduction of 60 cm Aftab limb at internal hernia of jejunojejunostomy defect 4. Closure of internal hernia mesenteric jejunojejunostomy defect 5. Abdominal washout 3 L normal saline 6. Placement of round #19 JIM drain pelvis via right lower abdomen 7. Application of incisional wound VAC system 20 cm PREVENA Anesthesia: LISAA Surgeon: Regla Gamez Estimated Blood Loss (ml): 50 Pathology: other (Enterotomy) Condition: stable Disposition: floor Operative Findings: 1. Moderate intra-abdominal ascites over 500 mL suctioned 2. Over 1500 mL bloody enteric contents decompressed from internal hernia or limb involving 60 cm proximal to the jejunojejunostomy suture line 3. Small bowel enterotomy with decompression 15 cm from the gastrojejunostomy closed using 60 mm kline staple load 4. Right lower quadrant adhesion cecum to abdominal wall creating internal hernia addressed by division lysis of adhesions 5. Abdominal washout 3 L normal saline until clear 6. Small bowel semisolid food contents involving 20 cm proximal terminal ileum reduced into the cecum 7. Right lower quadrant and #19 round JIM drain positioned pelvis 8. Indocyanine green was used to identify viability of small bowel involved in closed loop obstruction without evidence of small bowel infarct 9. Palpable pulse along small bowel mesentery involved and closed loop obstruction consistent with viable small bowel 10. Transient small bowel ischemia without infarction confirmed with indocyanine green involving 60 cm of distal Aftab limb
[2021-04-18] MEDS: ALBUTEROL NEBULIZED 2.5 MG/3 ML INHALATION SCH ×4 (09:34→20:56)
[2021-04-18] MEDS: ONDANSETRON 4 MG/2 ML VIAL IVP SCH ×4 (09:58→23:17)
[2021-04-18] MEDS: HYDROmorphone 1 MG/ML 1 ML SYRINGE IVP PRN ×3 (10:08→23:22)
[2021-04-18] MEDS: PANTOPRAZOLE 40 MG/10 ML VIAL IV SCH (10:09)
[2021-04-18] MEDS: PIPERACILLIN-TAZOBACTAM 3.375 GM in SODIUM CHLORIDE 0.9% 100 ML IVPB SCH ×3 (10:10→23:17)
[2021-04-18 10:19] VITALS: BMI 33.3
[2021-04-18 11:50] LABS: Magnesium 1.9 mg/dL (1.6-2.3); Phosphorus 4.7 mg/dL (2.5-4.5)
[2021-04-18] MEDS ORDERED: ACETAMINOPHEN IV (For NPO) 1,000 MG in EMPTY BAG 1 BAG IVPB SCH (12:00)
[2021-04-18] MEDS ORDERED: LIDOCAINE 1% INJ 10MG/ML (20 ML MDV) ONE (12:09)
[2021-04-18] MEDS ORDERED: LIDOCAINE 1% INJ 10MG/ML (20 ML MDV) SQ ONE (12:16)
--- NOTE | 2021-04-18 12:48 | IR ---
PICC LINE PLACEMENT: HISTORY: Infection requiring long-term antibiotic therapy PROCEDURE: Ultrasound and fluoroscopic guidance of PICC line placement. COMPLICATIONS: None ANESTHESIA: 1. 1% Lidocaine locally. FINDINGS/TECHNIQUE: The procedure was explained to the patient. The risks, complications, benefits and alternatives were discussed and any questions were answered. Informed consent was obtained. The patient was placed supine on the fluoroscopic table and prepped and draped in the usual sterile fash ion. Utilizing a 21 gauge needle and sonographic and fluoroscopic guidance, access in the left basi lic vein was achieved and there is placement of a 0.018 guidewire. The vein is patent. A 4-F sheath was placed over the guidewire. The guidewire and dilator were removed and a 4-F. PICC line was plac ed through the sheath with the tip at the level of the SVC. The sheath was removed, the catheter was flushed and sutured into position. The patient was stable throughout the procedure and remained sta ble upon discharge from the Department of Radiology. The vein puncture was patent under ultrasound. A maravilla scale image was obtained to document patency of the vein punctured. All elements of the maximal barrier technique were utilized. FLUOROSCOPY TIME: 0.1 minutes and one image submitted IMPRESSION: Successful PICC line placement under ultrasound and fluoroscopic guidance.
[2021-04-18] MEDS: MVI, ADULT NO.4 WITH VIT K 10 ML, TRACE (CONC-1ML/DOSE) 1 ML, PARENTERAL ELECTROLYTES 2... IV SCH ×4 (16:03)
[2021-04-18] MEDS ORDERED: FAT EMULSION 20% 500 ML in EMPTY BAG 1 BAG IV SCH (18:00)
[2021-04-18 21:10] LABS: Triglycerides 52.4 mg/dL (0.00-149.00)
[2021-04-18] MEDS: ACETAMINOPHEN IV (For NPO) 1,000 MG in EMPTY BAG 1 BAG IVPB SCH (22:00)
[2021-04-19] MEDS: HYDROmorphone 1 MG/ML 1 ML SYRINGE IVP PRN ×5 (02:56→20:44)
[2021-04-19] MEDS: ACETAMINOPHEN IV (For NPO) 1,000 MG in EMPTY BAG 1 BAG IVPB SCH ×2 (03:47→10:18)
[2021-04-19] MEDS: SODIUM CHLORIDE 0.9% 1,000 ML IV SCH ×4 (05:26→23:17)
[2021-04-19] MEDS: ONDANSETRON 4 MG/2 ML VIAL IVP SCH ×3 (05:26→17:26)
[2021-04-19 06:44] LABS: ALT 14 U/L (4-34); AST 31 U/L (14-36); African American GFR (CKD) >90 (>60 ml/min/1.73 sqM); Albumin 2.4 g/dL (3.5-5.0); Albumin/Globulin Ratio 1.1; Alkaline Phosphatase 44 U/L (38-126); Anion Gap 0 mmol/L; Blood Urea Nitrogen 9 mg/dL (7-17); Calcium 7.5 mg/dL (8.4-10.2); Carbon Dioxide 25 mmol/L (22-30); Chloride 109 mmol/L (98-107); Globulin 2.2 g/dL; Glucose 122 mg/dL (74-99); Magnesium 1.8 mg/dL (1.6-2.3); Non-African American GFR(CKD) >90 (>60 ml/min/1.73 sqM); Phosphorus 3.5 mg/dL (2.5-4.5); Potassium 3.8 mmol/L (3.5-5.1); Sodium 134 mmol/L (137-145); Total Bilirubin 0.4 mg/dL (0.2-1.3); Total Protein 4.6 g/dL (6.3-8.2)
[2021-04-19] MEDS: PANTOPRAZOLE 40 MG/10 ML VIAL IV SCH (07:58)
[2021-04-19] MEDS: PIPERACILLIN-TAZOBACTAM 3.375 GM in SODIUM CHLORIDE 0.9% 100 ML IVPB SCH ×2 (07:58→15:39)
[2021-04-19] MEDS: ALBUTEROL NEBULIZED 2.5 MG/3 ML INHALATION SCH ×4 (08:59→21:16)
[2021-04-19 09:24] LABS: Basophils # (A) 0.01 X 10*3/uL (0.00-0.10); Basophils % (A) 0.1 %; Eosinophils % (A) 1.1 %; HGB 12.8 g/dL (12.0-15.0); Immature Grans, Automated 0.4 %; Lymphocytes # (A) 0.84 X 10*3/uL (0.90-5.00); Lymphocytes % (A) 8.9 %; MCH 31.8 pg (27.0-32.0); MCHC 31.2 g/dL (32.0-37.0); MCV 101.7 fL (80.0-97.0); Mean Platelet Volume 10.7 fL (9.5-12.2); Monocytes # (A) 0.24 X 10*3/uL (0.20-1.00); Monocytes % (A) 2.6 %; NRBC Per 100 WBC 0 /100 WBCS (0.0-0.0); Neutrophils # (A) 8.17 X 10*3/uL (1.80-7.70); Neutrophils % (A) 86.9 %; Platelet Count 140 X 10*3/uL (140-440); RBC 4.03 X 10*6/uL (4.10-5.20); RDW 13.3 % (11.5-14.5)
--- NOTE | 2021-04-19 11:59 | P.PN ---
Subjective Progress Note Date: 04/19/21 CHIEF COMPLAINT: Abdominal pain with small bowel obstruction, strangulation HISTORY OF PRESENT ILLNESS: Suzanne Santamaria is a 51 year old female status post exploratory laparotomy, lysis of adhesions, reduction of closed loop obstruction due to internal hernia 04/18/2021. She is resting. She is fairly comfortable. She reports feeling better. No flatus. No nausea or vomiting. She has restless legs and tolerated last night. REVIEW OF SYSTEMS: No fevers or chills. No nausea or vomiting. No chest pain. PHYSICAL EXAM: VITAL SIGNS: 5 feet 4.5 inch frame, 197 pounds, body mass index 33.3 GENERAL: Well-developed, pleasant female in no acute distress. HEENT: No clubbing, cyanosis, or edema. CHEST: Nonlabored respirations. Equal bilateral excursions. CARDIOVASCULAR: Regular rate and rhythm. ABDOMEN: PREVENA dressing intact. JIM is serous. Abdominal binder present. MUSCULOSKELETAL: No clubbing, cyanosis or edema. NEURO: No focal or lateralizing signs. Cranial nerves II through XII grossly within normal limits. PSYCH: Alert and order person place and time. Appropriate affect. SKIN: Well perfused. Good skin turgor. LABS: Reviewed. WBC normalized from 13.1-9.4. Hemoglobin 12.8 and normal. ASSESSMENT: 1. Small bowel obstruction due to an internal hernia 2. Small bowel ischemia PLAN: 1. Clinically, she has done extremely well. She still at risk with small bowel ischemia. Close vigilance and nothing by mouth described. 2. IV fluids including TPN described. 3. Medical consultation obtained for overall medical management. 4. Inpatient hospitalization for 7 days described pending clinical course Objective - Vital Signs Vital signs: Vital Signs Temp 98.4 F 04/19/21 07:15 Pulse 76 04/19/21 09:11 Resp 17 04/19/21 07:58 BP 132/79 04/19/21 07:15 Pulse Ox 94 L 04/19/21 09:02 Intake & Output 04/18/21 04/19/21 04/19/21 18:59 06:59 18:59 Intake Total 500 Output Total 810 2024 735 Balance -310 -735 Weight 89.358 kg Intake: IV 500 Output: Drainage 160 325 85 Right Abdomen 160 325 85 Urine 600 1700 650 Estimated Blood Loss 50 Other: Voiding Method Indwelling Catheter Indwelling Catheter - Labs CBC & Chem 7: 04/19/21 05:58 04/19/21 05:58 Labs: Abnormal Lab Results - Last 24 Hours (Table) 04/18/21 04/19/21 04/19/21 Range/Units 04:40 05:58 05:58 RBC 4.03 L (4.10-5.20) X 10*6/uL MCV 101.7 H (80.0-97.0) fL MCHC 31.2 L (32.0-37.0) g/dL Neutrophils # 8.17 H (1.80-7.70) X 10*3/uL Lymphocytes # 0.84 L (0.90-5.00) X 10*3/uL Sodium 134 L (137-145) mmol/L Chloride 109 H (98-107) mmol/L Glucose 122 H (74-99) mg/dL Calcium 7.5 L (8.4-10.2) mg/dL Phosphorus 4.7 H (2.5-4.5) mg/dL Total Protein 4.6 L (6.3-8.2) g/dL Albumin 2.4 L (3.5-5.0) g/dL Assessment and Plan (1) Small bowel obstruction Current Visit: Yes Status: Acute Code(s): K56.609 - UNSP INTESTNL OBST, UNSP TO PARTIAL VERSUS COMPLETE OBST SNOMED Code(s): 605336574 (2) Gastroesophageal reflux Current Visit: No Status: Acute Code(s): K21.9 - GASTRO-ESOPHAGEAL REFLUX DISEASE WITHOUT ESOPHAGITIS SNOMED Code(s): 220681486 (3) S/P gastric bypass Current Visit: No Status: Acute Code(s): Z98.84 - BARIATRIC SURGERY STATUS SNOMED Code(s): 054312572 (4) On total parenteral nutrition (TPN) Current Visit: Yes Status: Acute Code(s): Z78.9 - OTHER SPECIFIED HEALTH STATUS SNOMED Code(s): 45564761
--- NOTE | 2021-04-19 18:51 | P.CONS ---
History of Present Illness - Reason for Consult Consult date: 04/19/21 - History of Present Illness Suzanne Santamaria, is a 51-year-old female who presented to [facility] in [place] with a chief complaint of severe abdominal pain, she was diagnosed with small bowel obstruction with strangulation, she was transferred to [facility], she was admitted under Dr. Gamez service, Gen. surgery, and then underwent emergent exploratory laparotomy with lysis of adhesions. Postoperative diagnosis was small bowel obstruction with ischemia due to closed loop internal hernia and peritoneal adhesions, patient was admitted to medical floor post surgery stable condition, she was started on IV Zosyn and TPN. Medical consultation was requested for management while hospitalized. Patient has a known history of bariatric surgery with gastric bypass surgery 5 years ago, she also has a known history of gastroesophageal reflux disease, osteoarthritis, depression, and restless leg syndrome. Past Medical History Past Medical History: GERD/Reflux, Osteoarthritis (OA) Additional Past Medical History / Comment(s): , restless leg syndrome. History of Any Multi-Drug Resistant Organisms: None Reported Past Surgical History: Appendectomy, Bariatric Surgery, Hysterectomy, Tonsillectomy Additional Past Surgical History / Comment(s): egd, GASTRIC BYPASS lysis of adhesions - Past Anesthesia/Blood Transfusion Reactions: No Reported Reaction, Motion Sickness Additional Past Anesthesia/Blood Transfusion Reaction / Comm: difficulty waking up Past Psychological History: Anxiety, Depression Additional Psychological History / Comment(s): emotional eater Smoking Status: Never smoker Past Alcohol Use History: Occasional Additional Past Alcohol Use History / Comment(s): SMOKER FROM AGE [age] YEARS OLD SMOKED 1/2 PACK PER WEEK Past Drug Use History: None Reported - Past Family History Mother Family Medical History: Asthma, Rheumatoid Arthritis (RA) Medications and Allergies Home Medications Medication Instructions Recorded Confirmed Type Multivitamins, Thera [Multivitamin 1 tab PO HS 10/30/16 04/18/21 History (formulary)] Cholecalciferol (Vitamin D3) 125 mcg PO HS 08/23/20 04/18/21 History [Vitamin D3 (5000 Iu)] Cyanocobalamin [Vitamin B-12] 500 mcg PO HS 08/23/20 04/18/21 History Omeprazole 20 mg PO HS 09/11/20 04/18/21 History Pramipexole [Mirapex] 0.5 - 1 mg PO HS 09/11/20 04/18/21 History Calcium Citrate 250 mg PO HS 04/18/21 04/18/21 History Collagen Powder 1 scoop PO HS 04/18/21 04/18/21 History Wheat Dextrin [Benefiber] 1 packet PO HS 04/18/21 04/18/21 History Allergies Allergy/AdvReac Type Severity Reaction Status Date / Time penicillin G Allergy Rash/Hives Verified 04/18/21 09:06 hydrocodone [From Vicodin] AdvReac Nausea & Verified 04/18/21 09:06 Vomiting propoxyphene AdvReac Nausea & Verified 04/18/21 09:06 [From Darvocet-N] Vomiting Physical Exam Vitals: Vital Signs Temp Pulse Pulse Pulse Resp BP Pulse Ox 04/19/21 15:49 80 04/19/21 15:38 80 04/19/21 13:35 98.3 F 77 18 99/61 98 04/19/21 13:11 72 04/19/21 12:59 67 04/19/21 09:11 76 04/19/21 09:02 68 94 L 04/19/21 07:58 60 17 04/19/21 07:15 98.4 F 60 17 132/79 99 04/19/21 02:00 98.9 F 65 18 116/72 99 04/18/21 21:08 84 04/18/21 20:57 80 98 04/18/21 20:00 98.9 F 79 17 107/65 98 Intake and Output 04/19/21 04/19/21 04/19/21 06:59 14:59 22:59 Intake Total 125 Output Total 2024 002 909 Balance -2024 -892 -530 Intake: Intake, IV Titration 125 Amount ACETAMINOPHEN IV (For NPO 100 ) 1,000 mg In Empty Bag 1 bag @ 400 mls/hr IVPB Q6H [facility] Rx#:[id number] Piperacillin-Tazobactam 3 25 .375 gm In Sodium Chloride 0.9% 100 ml @ 25 mls/hr IVPB Q8HR [facility] Rx# :[id number] Output: Drainage 325 85 70 Right Abdomen 325 85 70 Urine 1700 650 650 Other: Voiding Method Indwelling Catheter In general patient is alert and oriented x 3 in no distress HEENT head normocephalic and atraumatic Neck is supple no JVD no goiter no lymphadenopathy no carotid bruit Chest examination is clear to auscultation no crackles no wheezing Cardiac exam reveals regular heart sounds S1 and S2 no gallops no murmurs Abdomen is soft with mild diffuse tenderness no organomegaly with normal bowel sounds Extremity exam reveals no edema no cyanosis or clubbing Neurological examination reveals no gross focal deficits Results CBC & Chem 7: 04/19/21 05:58 04/19/21 05:58 Labs: Abnormal Lab Results - Last 24 Hours (Table) 04/19/21 04/19/21 Range/Units 05:58 05:58 RBC 4.03 L (4.10-5.20) X 10*6/uL MCV 101.7 H (80.0-97.0) fL MCHC 31.2 L (32.0-37.0) g/dL Neutrophils # 8.17 H (1.80-7.70) X 10*3/uL Lymphocytes # 0.84 L (0.90-5.00) X 10*3/uL Sodium 134 L (137-145) mmol/L Chloride 109 H (98-107) mmol/L Glucose 122 H (74-99) mg/dL Calcium 7.5 L (8.4-10.2) mg/dL Total Protein 4.6 L (6.3-8.2) g/dL Albumin 2.4 L (3.5-5.0) g/dL Assessment and Plan Plan: Small bowel obstruction with ischemia, status post exploratory laparotomy with lysis of adhesions and reduction of Aftab limb, and closure of internal hernia. Underlying history of gastroesophageal reflux disease maintained on Protonix Underlying history of restless leg syndrome Underlying history of depression with anxiety At this time patient is maintained on IV antibiotic Zosyn and is maintained on TPN For DVT prophylaxis she has SCD stockings Will recheck labs in a.m. and follow closely
[2021-04-19 20:34] LABS: Glucose,Whole Blood 100 mg/dL (75-99)
[2021-04-19] MEDS: PARENTERAL ELECTROLYTES IV SCH ×4 (23:11)
[2021-04-19] MEDS: AMINO ACIDS IV SCH ×4 (23:11)
[2021-04-19] MEDS: [UNRECOGNIZED DRUG - OTHER] IV SCH ×4 (23:11)
[2021-04-19] MEDS: MVI IV SCH ×4 (23:11)
[2021-04-19] MEDS: DEXTROSE 20% IV SCH ×4 (23:11)
[2021-04-20] MEDS: HYDROmorphone 1 MG/ML 1 ML SYRINGE IVP PRN ×4 (00:49→21:08)
[2021-04-20] MEDS: PIPERACILLIN-TAZOBACTAM 3.375 GM in SODIUM CHLORIDE 0.9% 100 ML IVPB SCH ×4 (00:49→23:16)
[2021-04-20] MEDS: ONDANSETRON 4 MG/2 ML VIAL IVP SCH ×5 (00:49→23:15)
[2021-04-20] MEDS: MVI, ADULT NO.4 WITH VIT K 10 ML, TRACE (CONC-1ML/DOSE) 1 ML, PARENTERAL ELECTROLYTES 2... IV SCH ×4 (00:51)
[2021-04-20] MEDS: SODIUM CHLORIDE 0.9% 1,000 ML IV SCH ×2 (03:12→19:43)
[2021-04-20 06:59] LABS: Magnesium 1.9 mg/dL (1.6-2.3); Phosphorus 2.5 mg/dL (2.5-4.5)
[2021-04-20 07:26] LABS: ALT 13 U/L (4-34); AST 29 U/L (14-36); African American GFR (CKD) >90 (>60 ml/min/1.73 sqM); Albumin 2.5 g/dL (3.5-5.0); Alkaline Phosphatase 55 U/L (38-126); Anion Gap 1 mmol/L; Blood Urea Nitrogen 10 mg/dL (7-17); Calcium 7.9 mg/dL (8.4-10.2); Carbon Dioxide 26 mmol/L (22-30); Chloride 108 mmol/L (98-107); Globulin 2.4 g/dL; Glucose 123 mg/dL (74-99); Non-African American GFR(CKD) >90 (>60 ml/min/1.73 sqM); Potassium 3.8 mmol/L (3.5-5.1); Sodium 135 mmol/L (137-145); Total Bilirubin 0.8 mg/dL (0.2-1.3); Total Protein 4.9 g/dL (6.3-8.2)
[2021-04-20] MEDS: ALBUTEROL NEBULIZED 2.5 MG/3 ML INHALATION SCH ×4 (09:02→20:17)
[2021-04-20 09:42] LABS: Basophils # (A) 0.01 X 10*3/uL (0.00-0.10); Basophils % (A) 0.1 %; Eosinophils # (A) 0.14 X 10*3/uL (0.04-0.35); Eosinophils % (A) 1.4 %; HGB 12.7 g/dL (12.0-15.0); Immature Grans, Automated 0.3 %; Lymphocytes # (A) 0.73 X 10*3/uL (0.90-5.00); Lymphocytes % (A) 7.5 %; MCH 31.9 pg (27.0-32.0); Mean Platelet Volume 10.2 fL (9.5-12.2); Monocytes # (A) 0.32 X 10*3/uL (0.20-1.00); Monocytes % (A) 3.3 %; NRBC Per 100 WBC 0 /100 WBCS (0.0-0.0); Neutrophils # (A) 8.46 X 10*3/uL (1.80-7.70); Neutrophils % (A) 87.4 %; Platelet Count 135 X 10*3/uL (140-440); RBC 3.98 X 10*6/uL (4.10-5.20); RDW 13.2 % (11.5-14.5); WBC 9.69 X 10*3/uL (4.50-10.00)
[2021-04-20] MEDS: PANTOPRAZOLE 40 MG/10 ML VIAL IV SCH (09:47)
--- NOTE | 2021-04-20 10:46 | P.PN ---
Subjective Progress Note Date: 04/20/21 Suzanne Santamaria, is a 51-year-old female who presented to [facility] in [place] with a chief complaint of severe abdominal pain, she was diagnosed with small bowel obstruction with strangulation, she was transferred to [facility], she was admitted under Dr. Gamez service, Gen. surgery, and then underwent emergent exploratory laparotomy with lysis of adhesions. Postoperative diagnosis was small bowel obstruction with ischemia due to closed loop internal hernia and peritoneal adhesions, patient was admitted to medical floor post surgery stable condition, she was started on IV Zosyn and TPN. Medical consultation was requested for management while hospitalized. Patient has a known history of bariatric surgery with gastric bypass surgery 5 years ago, she also has a known history of gastroesophageal reflux disease, osteoarthritis, depression, and restless leg syndrome. On 04/20/2021 patient is alert and oriented 3 resting comfortably in chair. Patient remains on TPN. Patient on antibiotics IV Zosyn. Infectious disease service is consulted. Current temp 98.7, pulse rate 74, respiratory rate 18, blood pressure 123/70 and patient satting 93% on room air. At this time patient denies chest pain or shortness breath. Patient denies nausea vomiting or d iarrhea. Patient denies any urinary burning or frequency Objective - Vital Signs Vital signs: Vital Signs Temp 98.7 F 04/20/21 07:00 Pulse 76 04/20/21 09:14 Resp 18 04/20/21 07:00 BP 123/70 04/20/21 07:00 Pulse Ox 92 L 04/20/21 07:00 Intake & Output 04/19/21 04/20/21 04/20/21 18:59 06:59 18:59 Intake Total 125 984 Output Total 1455 1740 Balance -1330 -756 Intake: Intake, IV Titration 125 984 Amount ACETAMINOPHEN IV (For NPO 100 ) 1,000 mg In Empty Bag 1 bag @ 400 mls/hr IVPB Q6H [facility] Rx#:[id number] Mvi, Adult No.4 with Vit 984 K 10 ml Trace (Conc-1Ml/ Dose) 1 ml Parenteral Electrolytes 20 ml In Amino Acids 5 %/Dextrose 20 % 1,000 ml @ 30 mls/hr IV .Q24H [facility] Rx#: [id number] Piperacillin-Tazobactam 3 25 .375 gm In Sodium Chloride 0.9% 100 ml @ 25 mls/hr IVPB Q8HR [facility] Rx# :[id number] Output: Drainage 155 40 Right Abdomen 155 40 Urine 1300 1700 Uretheral (Wolfe) 400 Other: Voiding Method Indwelling Catheter Indwelling Catheter - Exam In general patient is alert and oriented x 3 in no distress HEENT head normocephalic and atraumatic Neck is supple no JVD no goiter no lymphadenopathy no carotid bruit Chest examination is clear to auscultation no crackles no wheezing Cardiac exam reveals regular heart sounds S1 and S2 no gallops no murmurs Abdomen is soft with mild diffuse tenderness no organomegaly with normal bowel sounds Extremity exam reveals no edema no cyanosis or clubbing Neurological examination reveals no gross focal deficits - Labs CBC & Chem 7: 04/20/21 06:05 04/20/21 06:05 Labs: Abnormal Lab Results - Last 24 Hours (Table) 04/19/21 04/20/21 04/20/21 Range/Units 20:33 06:05 06:05 RBC 3.98 L (4.10-5.20) X 10*6/uL MCV 103.0 H (80.0-97.0) fL MCHC 31.0 L (32.0-37.0) g/dL Plt Count 135 L (140-440) X 10*3/uL Neutrophils # 8.46 H (1.80-7.70) X 10*3/uL Lymphocytes # 0.73 L (0.90-5.00) X 10*3/uL Sodium 135 L (137-145) mmol/L Chloride 108 H (98-107) mmol/L Glucose 123 H (74-99) mg/dL POC Glucose (mg/dL) 100 H (75-99) mg/dL Calcium 7.9 L (8.4-10.2) mg/dL Total Protein 4.9 L (6.3-8.2) g/dL Albumin 2.5 L (3.5-5.0) g/dL Assessment and Plan Plan: Small bowel obstruction with ischemia, status post exploratory laparotomy with lysis of adhesions and reduction of Aftab limb, and closure of internal hernia. Underlying history of gastroesophageal reflux disease maintained on Protonix Underlying history of restless leg syndrome Underlying history of depression with anxiety At this time patient is maintained on IV antibiotic Zosyn and is maintained on TPN Infectious disease service is consulted For DVT prophylaxis she has SCD stockings Will recheck labs in a.m. and follow closely
[2021-04-20] MEDS ORDERED: 1: AMINO ACID 5%-D20W+LYTES*E* 1,000 ML 2: MVI, ADULT NO.4 WITH VIT K 10 ML, TRACE (CON IV SCH ×3 (12:00)
[2021-04-20] MEDS: metroNIDAZOLE-NS PMX 500 MG in SALINE 1 100ML.BAG IVPB SCH ×3 (12:38→23:16)
[2021-04-20] MEDS: PARENTERAL ELECTROLYTES IV SCH ×4 (13:19)
[2021-04-20] MEDS: MVI IV SCH ×4 (13:19)
[2021-04-20] MEDS: [UNRECOGNIZED DRUG - OTHER] IV SCH ×4 (13:19)
[2021-04-20] MEDS: AMINO ACIDS IV SCH ×4 (13:19)
[2021-04-20] MEDS: DEXTROSE 20% IV SCH ×4 (13:19)
--- NOTE | 2021-04-20 15:36 | P.PN ---
Subjective Progress Note Date: 04/20/21 CHIEF COMPLAINT: Abdominal pain with small bowel obstruction, strangulation HISTORY OF PRESENT ILLNESS: Suzanne Santamaria is a 51 year old female status post exploratory laparotomy, lysis of adhesions, reduction of closed loop obstruction due to internal hernia 04/18/2021. patient sitting up at bedside chair. She reports that her pain is controlled. She denies any nausea or vomiting. she denies any flatus.She did have a low-grade temp last night of 100.white count normal at 9.69 hemoglobin 12.7 PHYSICAL EXAM: VITAL SIGNS: Reviewed GENERAL: Well-developed in no acute distress. HEENT: No sclera icterus. Extraocular movements grossly intact. Moist buccal mucosa. Head is atraumatic, normocephalic. Hears conversational speech. No nasal drainage. NECK: Supple without lymphadenopathy. CHEST: Non-labored respirations and equal bilateral excursions. CARDIOVASCULAR: Palpable 2+ radial pulses. ABDOMEN: PREVENA dressing intact. JIM is serosanguineous. Abdominal binder present MUSCULOSKELETAL: No clubbing or cyanosis. NEUROLOGIC: No focal or lateralizing signs. Cranial nerves II through XII grossly intact. PSYCH: Appropriate affect. Alert and oriented to person, place and time. SKIN: Well perfused. Good skin turgor. ASSESSMENT: 1. Small bowel obstruction due to an internal hernia 2. Small bowel ischemia PLAN: -DC Wolfe catheter -continue IV Tylenol -Continue TPN for nutrition support -Continue antibiotics -Continue pain medication as needed -Encourage patient to ambulate and use incentive spirometer -Clinically, she has done extremely well. She still at risk with small bowel ischemia. Close vigilance and nothing by mouth described. Physician Safety Security Officer note has been reviewed by physician. Signing provider agrees with the documented findings, assessment, and plan of care. Objective - Vital Signs Vital signs: Vital Signs Temp 99.1 F 04/20/21 13:35 Pulse 82 04/20/21 13:35 Resp 17 04/20/21 13:35 BP 134/84 04/20/21 13:35 Pulse Ox 93 L 04/20/21 13:35 Intake & Output 04/19/21 04/20/21 04/20/21 18:59 06:59 18:59 Intake Total 125 984 Output Total 1455 1740 910 Balance -1330 -756 -910 Weight 89.358 kg Intake: Intake, IV Titration 125 984 Amount ACETAMINOPHEN IV (For NPO 100 ) 1,000 mg In Empty Bag 1 bag @ 400 mls/hr IVPB Q6H [facility] Rx#:[id number] Mvi, Adult No.4 with Vit 984 K 10 ml Trace (Conc-1Ml/ Dose) 1 ml Parenteral Electrolytes 20 ml In Amino Acids 5 %/Dextrose 20 % 1,000 ml @ 30 mls/hr IV .Q24H [facility] Rx#: [id number] Piperacillin-Tazobactam 3 25 .375 gm In Sodium Chloride 0.9% 100 ml @ 25 mls/hr IVPB Q8HR [facility] Rx# :[id number] Output: Drainage 155 40 60 Right Abdomen 155 40 60 Urine 1300 1700 850 Uretheral (Wolfe) 400 Other: Voiding Method Indwelling Catheter Indwelling Catheter Indwelling Catheter - Labs CBC & Chem 7: 04/20/21 06:05 04/20/21 06:05 Labs: Abnormal Lab Results - Last 24 Hours (Table) 04/19/21 04/20/21 04/20/21 Range/Units 20:33 06:05 06:05 RBC 3.98 L (4.10-5.20) X 10*6/uL MCV 103.0 H (80.0-97.0) fL MCHC 31.0 L (32.0-37.0) g/dL Plt Count 135 L (140-440) X 10*3/uL Neutrophils # 8.46 H (1.80-7.70) X 10*3/uL Lymphocytes # 0.73 L (0.90-5.00) X 10*3/uL Sodium 135 L (137-145) mmol/L Chloride 108 H (98-107) mmol/L Glucose 123 H (74-99) mg/dL POC Glucose (mg/dL) 100 H (75-99) mg/dL Calcium 7.9 L (8.4-10.2) mg/dL Total Protein 4.9 L (6.3-8.2) g/dL Albumin 2.5 L (3.5-5.0) g/dL
[2021-04-20] MEDS ORDERED: [UNRECOGNIZED DRUG - OTHER] IV SCH ×5 (16:00)
[2021-04-20] MEDS ORDERED: SODIUM PHOSPHATE IV SCH ×5 (16:00)
[2021-04-20] MEDS ORDERED: PARENTERAL ELECTROLYTES IV SCH ×5 (16:00)
[2021-04-20] MEDS: ENOXAPARIN 30 MG/0.3 ML SYRINGE SQ SCH (16:24)
[2021-04-20] MEDS: ACETAMINOPHEN IV (For NPO) 1,000 MG in EMPTY BAG 1 BAG IVPB SCH ×2 (17:26→23:15)
[2021-04-21] MEDS: SODIUM CHLORIDE 0.9% 1,000 ML IV SCH ×3 (01:44→16:19)
[2021-04-21] MEDS: HYDROmorphone 1 MG/ML 1 ML SYRINGE IVP PRN ×4 (01:51→22:08)
[2021-04-21] MEDS: ONDANSETRON 4 MG/2 ML VIAL IVP SCH ×3 (05:35→17:55)
[2021-04-21] MEDS: ACETAMINOPHEN IV (For NPO) 1,000 MG in EMPTY BAG 1 BAG IVPB SCH ×2 (05:35→12:28)
[2021-04-21] MEDS: metroNIDAZOLE-NS PMX 500 MG in SALINE 1 100ML.BAG IVPB SCH ×3 (05:36→17:55)
[2021-04-21 06:31] LABS: African American GFR (CKD) >90 (>60 ml/min/1.73 sqM); Anion Gap 4 mmol/L; Blood Urea Nitrogen 15 mg/dL (7-17); Calcium 7.6 mg/dL (8.4-10.2); Carbon Dioxide 27 mmol/L (22-30); Chloride 106 mmol/L (98-107); Glucose 85 mg/dL (74-99); Magnesium 1.9 mg/dL (1.6-2.3); Non-African American GFR(CKD) >90 (>60 ml/min/1.73 sqM); Phosphorus 3.6 mg/dL (2.5-4.5); Potassium 3.8 mmol/L (3.5-5.1); Sodium 137 mmol/L (137-145)
[2021-04-21] MEDS: PANTOPRAZOLE 40 MG/10 ML VIAL IV SCH (08:01)
[2021-04-21] MEDS: PIPERACILLIN-TAZOBACTAM 3.375 GM in SODIUM CHLORIDE 0.9% 100 ML IVPB SCH ×2 (08:01→16:18)
[2021-04-21] MEDS: MAGNESIUM SULFATE-D5W PMX 1 GM in DEXTROSE/WATER 1 100ML.BAG IVPB SCH ×2 (08:02→16:25)
[2021-04-21] MEDS: ALBUTEROL NEBULIZED 2.5 MG/3 ML INHALATION SCH ×4 (08:18→19:21)
[2021-04-21] MEDS: POTASSIUM CHLORIDE 20 MEQ in WATER FOR INJECTION 1 100ML.BAG IVPB ONE ×2 (09:53→16:19)
[2021-04-21] MEDS: ENOXAPARIN 30 MG/0.3 ML SYRINGE SQ SCH (09:53)
[2021-04-21] MEDS: PARENTERAL ELECTROLYTES IV SCH ×10 (10:48→22:20)
[2021-04-21] MEDS: SODIUM PHOSPHATE IV SCH ×10 (10:48→22:20)
[2021-04-21] MEDS: [UNRECOGNIZED DRUG - OTHER] IV SCH ×10 (10:48→22:20)
--- NOTE | 2021-04-21 10:51 | P.CONS ---
History of Present Illness - Reason for Consult Consult date: 04/20/21 abdominal ischemia Requesting physician: Jayna Avalos - Chief Complaint abd pain x 1 day - History of Present Illness History of Present Illness : Patient is a 51-year female with a past medical history sniffing for gastric bypass surgery presenting to the hospital 3 days ago for evaluation of diffuse abdominal pain nausea that started the day of presentation to the hospital patient apparently did presented to outside facility with a CT abdominal pelvis was done and evidence of small bowel obstruction patient subsequently was transferred to [facility] ER, patient mentioning the pain started the day of presentation the hospital patient pain was diffuse more of a sharp in nature almost 10 out of 10 in severity with associated nausea but no vomiting denies have any diarrhea or constipation, patient on presentation to the hospital was afebrile she did have low-grade fever last night of 100 F patient did have a white count of 13.1 with a left shift kidney function has been normal liver enzymes are normal patient was taken to the OR with concern for small bowel obstruction with ischemia due to closed- loop internal hernia peritoneal adhesions patient is status post small bowel decompression closure of the internal hernia abdominal washout and JIM drain placement, patient is currently being treated with Zosyn despite her penicillin allergy and the patient has been tolerating it infectious he was considered a for bowel ischemia Review of system: CONSTITUTIONAL: Positive for weakness, low-grade fever. EYES: No complaint. ENT: No complaint. RESPIRATORY: No complaint. CARDIOVASCULAR: No complaint. GENITOURINARY: No complaint. GASTROINTESTINAL as per history of present illness. MUSCULOSKELETAL: No complaint. INTEGUMENTARY : No complaint. PSYCHOLOGIC: No complaint. ENDOCRINE: No complaint. NEUROLOGIC: No complaint. Past medical history : Reviewed, documented below Past surgical history : Reviewed, documented below Social history: Reviewed, documented below Medications: Reviewed, as documented below EXAMINATION: Vital sigans= Reviewed and documented below GENERAL DESCRIPTION: Middle-aged male lying in bed, no distress. No tachypnea or accessory muscle of respiration use. HEENT: Shows Pallor , no scleral icterus. Oral mucous membrane is dry. NECK: Trachea central, no thyromegaly. LUNGS: Unlabored breathing. Clear to auscultation anteriorly. No wheeze or crackle. HEART: S1, S2, regular rate and rhythm. ABDOMEN: Soft, mild abdominal tenderness , no guarding or rigidity EXTREMITIES: No edema feet SKIN: No rash, no masses palpable. NEUROLOGICAL: The patient is awake, alert, oriented x3, mood and affect normal. LABS AND RADIOLOGY: Reviewed results see below Assessment : 1patient presented to hospital with acute abdominal pain in this patient noticed to have small bowel obstruction from small bowel ischemia and internal herniation s/p closure of internal hernia mesenteric jejunostomy defect abdominal washout will need to cover for the enteric gram-negative with a likely pathogen. 2questionable penicillin allergy however has been tolerating Zosyn clinically doubt true penicillin allergy Plan: 1-patient to continue with the Zosyn 3.375 g every 8 hours 2-blood cultures will be obtained if the patient spike any fever or any worsening white count We will follow on clinical condition and cultures to further adjust medication if needed Thank you for this consultation we will follow the patient along with you Past Medical History Past Medical History: GERD/Reflux, Osteoarthritis (OA) Additional Past Medical History / Comment(s): , restless leg syndrome. History of Any Multi-Drug Resistant Organisms: None Reported Past Surgical History: Appendectomy, Bariatric Surgery, Hysterectomy, Tonsillectomy Additional Past Surgical History / Comment(s): egd, GASTRIC BYPASS lysis of adhesions 10-09-20 Past Anesthesia/Blood Transfusion Reactions: No Reported Reaction, Motion Sickness Additional Past Anesthesia/Blood Transfusion Reaction / Comm: difficulty waking up Past Psychological History: Anxiety, Depression Additional Psychological History / Comment(s): emotional eater Smoking Status: Never smoker Past Alcohol Use History: Occasional Additional Past Alcohol Use History / Comment(s): SMOKER FROM AGE [age] YEARS OLD SMOKED 1/2 PACK PER WEEK Past Drug Use History: None Reported - Past Family History Mother Family Medical History: Asthma, Rheumatoid Arthritis (RA) Medications and Allergies Home Medications Medication Instructions Recorded Confirmed Type Multivitamins, Thera [Multivitamin 1 tab PO HS 10/30/16 04/18/21 History (formulary)] Cholecalciferol (Vitamin D3) 125 mcg PO HS 08/23/20 04/18/21 History [Vitamin D3 (5000 Iu)] Cyanocobalamin [Vitamin B-12] 500 mcg PO HS 08/23/20 04/18/21 History Omeprazole 20 mg PO HS 09/11/20 04/18/21 History Pramipexole [Mirapex] 0.5 - 1 mg PO HS 09/11/20 04/18/21 History Calcium Citrate 250 mg PO HS 04/18/21 04/18/21 History Collagen Powder 1 scoop PO HS 04/18/21 04/18/21 History Wheat Dextrin [Benefiber] 1 packet PO HS 04/18/21 04/18/21 History Allergies Allergy/AdvReac Type Severity Reaction Status Date / Time penicillin G Allergy Rash/Hives Verified 04/18/21 09:06 hydrocodone [From Vicodin] AdvReac Nausea & Verified 04/18/21 09:06 Vomiting propoxyphene AdvReac Nausea & Verified 04/18/21 09:06 [From Darvocet-N] Vomiting Physical Exam Vitals: Vital Signs Temp Pulse Pulse Resp BP Pulse Ox 04/20/21 09:14 76 04/20/21 09:02 72 04/20/21 08:00 74 18 04/20/21 07:00 98.7 F 74 18 123/70 92 L 04/20/21 00:34 99.6 F 82 14 121/71 93 L 04/19/21 21:23 95 04/19/21 21:16 91 91 L 04/19/21 19:59 100 F H 83 14 130/77 94 L 04/19/21 15:49 80 04/19/21 15:38 80 04/19/21 13:35 98.3 F 77 18 99/61 98 04/19/21 13:11 72 04/19/21 12:59 67 Intake and Output 04/19/21 04/20/21 04/20/21 22:59 06:59 14:59 Intake Total 125 984 Output Total 720 4548 067 Balance -681 -581 -629 Intake: Intake, IV Titration 125 984 Amount ACETAMINOPHEN IV (For NPO 100 ) 1,000 mg In Empty Bag 1 bag @ 400 mls/hr IVPB Q6H [facility] Rx#:[id number] Mvi, Adult No.4 with Vit 984 K 10 ml Trace (Conc-1Ml/ Dose) 1 ml Parenteral Electrolytes 20 ml In Amino Acids 5 %/Dextrose 20 % 1,000 ml @ 30 mls/hr IV .Q24H [facility] Rx#: [id number] Piperacillin-Tazobactam 3 25 .375 gm In Sodium Chloride 0.9% 100 ml @ 25 mls/hr IVPB Q8HR [facility] Rx# :[id number] Output: Drainage 70 40 Right Abdomen 70 40 Urine 650 1700 850 Uretheral (Wolfe) 400 Other: Voiding Method Indwelling Catheter Indwelling Catheter Results CBC & Chem 7: 04/20/21 06:05 04/21/21 05:19 Labs: Abnormal Lab Results - Last 24 Hours (Table) 04/19/21 04/20/21 04/20/21 Range/Units 20:33 06:05 06:05 RBC 3.98 L (4.10-5.20) X 10*6/uL MCV 103.0 H (80.0-97.0) fL MCHC 31.0 L (32.0-37.0) g/dL Plt Count 135 L (140-440) X 10*3/uL Neutrophils # 8.46 H (1.80-7.70) X 10*3/uL Lymphocytes # 0.73 L (0.90-5.00) X 10*3/uL Sodium 135 L (137-145) mmol/L Chloride 108 H (98-107) mmol/L Glucose 123 H (74-99) mg/dL POC Glucose (mg/dL) 100 H (75-99) mg/dL Calcium 7.9 L (8.4-10.2) mg/dL Total Protein 4.9 L (6.3-8.2) g/dL Albumin 2.5 L (3.5-5.0) g/dL
--- NOTE | 2021-04-21 11:11 | P.PN ---
Subjective Progress Note Date: 04/21/21 Principal diagnosis: Small bowel obstruction Patient doing well today. Pain is gradually improving. She has belching but no flatus or bowel movement. Objective - Vital Signs Vital signs: Vital Signs Temp 98.3 F 04/21/21 07:43 Pulse 92 04/21/21 08:29 Resp 17 04/21/21 07:43 BP 133/76 04/21/21 07:43 Pulse Ox 96 04/21/21 07:43 Intake & Output 04/20/21 04/21/21 04/21/21 18:59 06:59 18:59 Intake Total 100 200 Output Total 2470 60 Balance -2370 140 Weight 89.358 kg Intake: Intake, IV Titration 100 200 Amount ACETAMINOPHEN IV (For NPO 100 ) 1,000 mg In Empty Bag 1 bag @ 400 mls/hr IVPB Q6HR [facility] Rx#:[id number] Piperacillin-Tazobactam 3 100 .375 gm In Sodium Chloride 0.9% 100 ml @ 25 mls/hr IVPB Q8HR [facility] Rx# :[id number] metroNIDAZOLE-NS PMX 500 100 mg In Saline 1 100ml.bag @ 100 mls/hr IVPB Q6HR [facility] Rx#:[id number] Output: Drainage 120 60 Right Abdomen 120 60 Urine 2350 Uretheral (Wolfe) 1500 Other: Voiding Method Indwelling Catheter Toilet - Exam Abdomen: Soft, mild tenderness, minimal distention, dressing clean and dry - Labs CBC & Chem 7: 04/20/21 06:05 04/21/21 05:19 Labs: Abnormal Lab Results - Last 24 Hours (Table) 04/21/21 Range/Units 05:19 Calcium 7.6 L (8.4-10.2) mg/dL Assessment and Plan (1) Small bowel obstruction Narrative/Plan: Patient gradually improving. Continue nothing by mouth for now. Increase activity. Current Visit: Yes Status: Acute Code(s): K56.609 - UNSP INTESTNL OBST, UNSP TO PARTIAL VERSUS COMPLETE OBST SNOMED Code(s): 092562557
--- NOTE | 2021-04-21 11:35 | P.PN ---
Subjective Progress Note Date: 04/21/21 Suzanne Santamaria, is a 51-year-old female who presented to [facility] in [place] with a chief complaint of severe abdominal pain, she was diagnosed with small bowel obstruction with strangulation, she was transferred to [facility], she was admitted under Dr. Gamez service, Gen. surgery, and then underwent emergent exploratory laparotomy with lysis of adhesions. Postoperative diagnosis was small bowel obstruction with ischemia due to closed loop internal hernia and peritoneal adhesions, patient was admitted to medical floor post surgery stable condition, she was started on IV Zosyn and TPN. Medical consultation was requested for management while hospitalized. Patient has a known history of bariatric surgery with gastric bypass surgery 5 years ago, she also has a known history of gastroesophageal reflux disease, osteoarthritis, depression, and restless leg syndrome. On 04/20/2021 patient is alert and oriented 3 resting comfortably in chair. Patient remains on TPN. Patient on antibiotics IV Zosyn. Infectious disease service is consulted. Current temp 98.7, pulse rate 74, respiratory rate 18, blood pressure 123/70 and patient satting 93% on room air. At this time patient denies chest pain or shortness breath. Patient denies nausea vomiting or d iarrhea. Patient denies any urinary burning or frequency On 04/21/2021 patient's alert and oriented 3 resting comfortably in chair. Patient reports improvement with abdominal discomfort. Patient denies any bowel movements yet. Patient remains on IV Zosyn. Patient remains on TPN. Patient denies chest pain or shortness of breath. Patient denies nausea vomiting or diarrhea. Patient denies any urinary burning or frequency Objective - Vital Signs Vital signs: Vital Signs Temp 98.3 F 04/21/21 07:43 Pulse 90 04/21/21 11:24 Resp 17 04/21/21 07:43 BP 133/76 04/21/21 07:43 Pulse Ox 96 04/21/21 07:43 Intake & Output 04/20/21 04/21/21 04/21/21 18:59 06:59 18:59 Intake Total 100 200 Output Total 2470 60 Balance -2370 140 Weight 89.358 kg Intake: Intake, IV Titration 100 200 Amount ACETAMINOPHEN IV (For NPO 100 ) 1,000 mg In Empty Bag 1 bag @ 400 mls/hr IVPB Q6HR [facility] Rx#:[id number] Piperacillin-Tazobactam 3 100 .375 gm In Sodium Chloride 0.9% 100 ml @ 25 mls/hr IVPB Q8HR [facility] Rx# :[id number] metroNIDAZOLE-NS PMX 500 100 mg In Saline 1 100ml.bag @ 100 mls/hr IVPB Q6HR [facility] Rx#:[id number] Output: Drainage 120 60 Right Abdomen 120 60 Urine 2350 Uretheral (Wolfe) 1500 Other: Voiding Method Indwelling Catheter Toilet - Exam In general patient is alert and oriented x 3 in no distress HEENT head normocephalic and atraumatic Neck is supple no JVD no goiter no lymphadenopathy no carotid bruit Chest examination is clear to auscultation no crackles no wheezing Cardiac exam reveals regular heart sounds S1 and S2 no gallops no murmurs Abdomen is soft with mild diffuse tenderness no organomegaly with normal bowel sounds Extremity exam reveals no edema no cyanosis or clubbing Neurological examination reveals no gross focal deficits - Labs CBC & Chem 7: 04/20/21 06:05 04/21/21 05:19 Labs: Abnormal Lab Results - Last 24 Hours (Table) 04/21/21 Range/Units 05:19 Calcium 7.6 L (8.4-10.2) mg/dL Assessment and Plan Plan: Small bowel obstruction with ischemia, status post exploratory laparotomy with lysis of adhesions and reduction of Aftab limb, and closure of internal hernia. Underlying history of gastroesophageal reflux disease maintained on Protonix Underlying history of restless leg syndrome Underlying history of depression with anxiety At this time patient is maintained on IV antibiotic Zosyn and is maintained on TPN Infectious disease service is consulted For DVT prophylaxis Carriex Will recheck labs in a.m. and follow closely
--- NOTE | 2021-04-21 16:15 | P.PN ---
Subjective Progress Note Date: 04/21/21 Principal diagnosis: Ischemic small bowel Patient is a 51-year-old female presented to hospital with acute abdominal pain in this patient was diagnosed with small bowel obstruction from internal herniation and did have some ischemia of the small bowel but no perforation status post lithotomy question of the hernia. On today's evaluation that is 04/21/2021, the patient denies having any fever or any chills, the patient is feeling slightly better today, the patient abdominal pain is currently controlled, denies having any nausea no vomiting no chest pain shortness of breath or cough Objective - Vital Signs Vital signs: Vital Signs Temp 99.0 F 04/21/21 14:00 Pulse 72 04/21/21 14:00 Resp 17 04/21/21 14:00 BP 113/62 04/21/21 14:00 Pulse Ox 96 04/21/21 14:00 Intake & Output 04/20/21 04/21/21 04/21/21 18:59 06:59 18:59 Intake Total 100 200 Output Total 2470 60 Balance -2370 140 Weight 89.358 kg Intake: Intake, IV Titration 100 200 Amount ACETAMINOPHEN IV (For NPO 100 ) 1,000 mg In Empty Bag 1 bag @ 400 mls/hr IVPB Q6HR [facility] Rx#:[id number] Piperacillin-Tazobactam 3 100 .375 gm In Sodium Chloride 0.9% 100 ml @ 25 mls/hr IVPB Q8HR [facility] Rx# :[id number] metroNIDAZOLE-NS PMX 500 100 mg In Saline 1 100ml.bag @ 100 mls/hr IVPB Q6HR [facility] Rx#:[id number] Output: Drainage 120 60 Right Abdomen 120 60 Urine 2350 Uretheral (Wolfe) 1500 Other: Voiding Method Indwelling Catheter Toilet Toilet - Exam GENERAL DESCRIPTION: A middle-aged female lying in bed in no distress RESPIRATORY SYSTEM: Unlabored breathing , decreased breath sounds at bases HEART: S1 S2 regular rate and rhythm , ABDOMEN: Soft , no tenderness EXTREMITIES: No edema feet - Labs CBC & Chem 7: 04/20/21 06:05 04/21/21 05:19 Labs: Abnormal Lab Results - Last 24 Hours (Table) 04/21/21 Range/Units 05:19 Calcium 7.6 L (8.4-10.2) mg/dL Assessment and Plan (1) Small bowel ischemia Current Visit: Yes Status: Acute Code(s): K55.9 - VASCULAR DISORDER OF INTESTINE, UNSPECIFIED SNOMED Code(s): 73583261 Plan: Patient with admission to the hospital with acute abdominal pain nausea and vomiting diagnosed with small bowel obstruction from internal herniation status post laparotomy with evidence of any perforation, patient is currently covered with Zosyn to continue while monitoring clinical course closely Time with Patient: Less than 30
[2021-04-22] MEDS: metroNIDAZOLE-NS PMX 500 MG in SALINE 1 100ML.BAG IVPB SCH ×4 (00:41→16:43)
[2021-04-22] MEDS: PIPERACILLIN-TAZOBACTAM 3.375 GM in SODIUM CHLORIDE 0.9% 100 ML IVPB SCH ×2 (00:41→07:30)
[2021-04-22] MEDS: ONDANSETRON 4 MG/2 ML VIAL IVP SCH ×2 (00:41→05:29)
[2021-04-22] MEDS: SODIUM CHLORIDE 0.9% 1,000 ML IV SCH ×4 (00:42→21:52)
[2021-04-22] MEDS: diphenhydrAMINE 50 MG/ML 1 ML VIAL IVP PRN ×2 (01:36→21:53)
[2021-04-22] MEDS: HYDROmorphone 1 MG/ML 1 ML SYRINGE IVP PRN ×4 (02:10→22:34)
[2021-04-22 06:05] LABS: ALT 11 U/L (4-34); AST 19 U/L (14-36); African American GFR (CKD) >90 (>60 ml/min/1.73 sqM); Albumin 2.3 g/dL (3.5-5.0); Alkaline Phosphatase 44 U/L (38-126); Anion Gap 3 mmol/L; Blood Urea Nitrogen 13 mg/dL (7-17); Calcium 7.4 mg/dL (8.4-10.2); Carbon Dioxide 25 mmol/L (22-30); Chloride 108 mmol/L (98-107); Globulin 2.4 g/dL; Glucose 108 mg/dL (74-99); Magnesium 1.9 mg/dL (1.6-2.3); Non-African American GFR(CKD) >90 (>60 ml/min/1.73 sqM); Phosphorus 4.2 mg/dL (2.5-4.5); Potassium 3.4 mmol/L (3.5-5.1); Sodium 136 mmol/L (137-145); Total Bilirubin 0.6 mg/dL (0.2-1.3); Total Protein 4.7 g/dL (6.3-8.2)
[2021-04-22] MEDS: PANTOPRAZOLE 40 MG/10 ML VIAL IV SCH (07:30)
[2021-04-22] MEDS: ENOXAPARIN 30 MG/0.3 ML SYRINGE SQ SCH (07:30)
[2021-04-22] MEDS: ALBUTEROL NEBULIZED 2.5 MG/3 ML INHALATION SCH ×4 (07:46→19:53)
[2021-04-22 09:00] LABS: Basophils # (A) 0.01 X 10*3/uL (0.00-0.10); Basophils % (A) 0.2 %; Eosinophils # (A) 0.14 X 10*3/uL (0.04-0.35); Eosinophils % (A) 2.1 %; HCT 35.9 % (37.2-46.3); HGB 11.3 g/dL (12.0-15.0); Immature Grans, Automated 0.3 %; Lymphocytes % (A) 15.3 %; MCH 32.1 pg (27.0-32.0); MCHC 31.5 g/dL (32.0-37.0); Mean Platelet Volume 9.9 fL (9.5-12.2); Monocytes # (A) 0.49 X 10*3/uL (0.20-1.00); Monocytes % (A) 7.5 %; NRBC Per 100 WBC 0 /100 WBCS (0.0-0.0); Neutrophils # (A) 4.88 X 10*3/uL (1.80-7.70); Neutrophils % (A) 74.6 %; Platelet Count 161 X 10*3/uL (140-440); RBC 3.52 X 10*6/uL (4.10-5.20); RDW 13.2 % (11.5-14.5); WBC 6.54 X 10*3/uL (4.50-10.00)
[2021-04-22] MEDS: PARENTERAL ELECTROLYTES IV SCH ×12 (09:34→21:39)
[2021-04-22] MEDS: SODIUM ACETATE IV SCH ×12 (09:34→21:39)
[2021-04-22] MEDS: SODIUM PHOSPHATE IV SCH ×12 (09:34→21:39)
[2021-04-22] MEDS: [UNRECOGNIZED DRUG - OTHER] IV SCH ×12 (09:34→21:39)
[2021-04-22] MEDS: POTASSIUM CHLORIDE 20 MEQ in SODIUM CHLORIDE 0.9% 100 ML IVPB SCH ×2 (09:37→11:46)
--- NOTE | 2021-04-22 09:47 | P.PN ---
Subjective Progress Note Date: 04/22/21 Principal diagnosis: Small bowel obstruction Patient somewhat depressed today. Denies any significant abdominal pain however. No bowel movement. She is passing flatus. Objective - Vital Signs Vital signs: Vital Signs Temp 98.4 F 04/22/21 07:24 Pulse 90 04/22/21 07:55 Resp 17 04/22/21 07:24 BP 145/83 04/22/21 07:24 Pulse Ox 93 L 04/22/21 07:24 Intake & Output 04/21/21 04/22/21 04/22/21 18:59 06:59 18:59 Intake Total 980.333 Output Total 180 105 Balance -180 875.333 Intake: Intake, IV Titration 980.333 Amount Parenteral Electrolytes 980.333 20 ml Sodium Phosphate 9 mmol In Amino Acids 5 %/ Dextrose 20 % 1,000 ml @ 85 mls/hr IV .BY DURATION REPLACED BY [facility] Rx#:[id number] Output: Drainage 180 105 Right Abdomen 180 105 Other: Voiding Method Toilet Toilet # Voids 3 2 - Exam Abdomen: Soft, nondistended, dressing intact, mild tenderness, JIM serous - Labs CBC & Chem 7: 04/22/21 04:15 04/22/21 04:15 Labs: Abnormal Lab Results - Last 24 Hours (Table) 04/22/21 04/22/21 Range/Units 04:15 04:15 RBC 3.52 L (4.10-5.20) X 10*6/uL Hgb 11.3 L (12.0-15.0) g/dL Hct 35.9 L (37.2-46.3) % MCV 102.0 H (80.0-97.0) fL MCH 32.1 H (27.0-32.0) pg MCHC 31.5 L (32.0-37.0) g/dL Sodium 136 L (137-145) mmol/L Potassium 3.4 L (3.5-5.1) mmol/L Chloride 108 H (98-107) mmol/L Glucose 108 H (74-99) mg/dL Calcium 7.4 L (8.4-10.2) mg/dL Total Protein 4.7 L (6.3-8.2) g/dL Albumin 2.3 L (3.5-5.0) g/dL Assessment and Plan (1) Small bowel obstruction Narrative/Plan: Patient gradually improving. Begin clear liquids at this time. Continue encouraging increased ambulation. Current Visit: Yes Status: Acute Code(s): K56.609 - UNSP INTESTNL OBST, UNSP TO PARTIAL VERSUS COMPLETE OBST SNOMED Code(s): 529223089
[2021-04-22] MEDS ORDERED: Potassium Replacement Protocol 1 EACH MISC MISCELLANE PRN (11:16)
--- NOTE | 2021-04-22 11:35 | P.PN ---
Subjective Progress Note Date: 04/22/21 Suzanne Santamaria, is a 51-year-old female who presented to [facility] in [place] with a chief complaint of severe abdominal pain, she was diagnosed with small bowel obstruction with strangulation, she was transferred to [facility], she was admitted under Dr. Gamez service, Gen. surgery, and then underwent emergent exploratory laparotomy with lysis of adhesions. Postoperative diagnosis was small bowel obstruction with ischemia due to closed loop internal hernia and peritoneal adhesions, patient was admitted to medical floor post surgery stable condition, she was started on IV Zosyn and TPN. Medical consultation was requested for management while hospitalized. Patient has a known history of bariatric surgery with gastric bypass surgery 5 years ago, she also has a known history of gastroesophageal reflux disease, osteoarthritis, depression, and restless leg syndrome. On 04/20/2021 patient is alert and oriented 3 resting comfortably in chair. Patient remains on TPN. Patient on antibiotics IV Zosyn. Infectious disease service is consulted. Current temp 98.7, pulse rate 74, respiratory rate 18, blood pressure 123/70 and patient satting 93% on room air. At this time patient denies chest pain or shortness breath. Patient denies nausea vomiting or d iarrhea. Patient denies any urinary burning or frequency On 04/21/2021 patient's alert and oriented 3 resting comfortably in chair. Patient reports improvement with abdominal discomfort. Patient denies any bowel movements yet. Patient remains on IV Zosyn. Patient remains on TPN. Patient denies chest pain or shortness of breath. Patient denies nausea vomiting or diarrhea. Patient denies any urinary burning or frequency. On 04/22/2021 patient was seen and examined on the medical floor she is alert and oriented 3 in no apparent distress patient is complaining of itchy rash on her back and her thighs that developed overnight she is still having some discomfort in the abdomen, she is passing gas but had no bowel movements, there is no fever or chills no headache or dizziness no chest pain no shortness of breath no cough no nausea or vomiting no diarrhea no blood in the stools no b urning with urination no frequency or urgency and no hematuria. At this time will discontinue Zosyn, and start patient on Levaquin 500 mg IV daily, will continue with Flagyl, recheck in a.m. Objective - Vital Signs Vital signs: Vital Signs Temp 98.4 F 04/22/21 07:24 Pulse 90 04/22/21 07:55 Resp 17 04/22/21 08:00 BP 145/83 04/22/21 07:24 Pulse Ox 93 L 04/22/21 07:24 Intake & Output 04/21/21 04/22/21 04/22/21 18:59 06:59 18:59 Intake Total 980.333 Output Total 180 105 40 Balance -180 875.333 -40 Intake: Intake, IV Titration 980.333 Amount Parenteral Electrolytes 980.333 20 ml Sodium Phosphate 9 mmol In Amino Acids 5 %/ Dextrose 20 % 1,000 ml @ 85 mls/hr IV .BY DURATION [facility] Rx#:[id number] Output: Drainage 180 105 40 Right Abdomen 180 105 40 Other: Voiding Method Toilet Toilet Toilet # Voids 3 2 - Exam In general patient is alert and oriented x 3 in no distress HEENT head normocephalic and atraumatic Neck is supple no JVD no goiter no lymphadenopathy no carotid bruit Chest examination is clear to auscultation no crackles no wheezing Cardiac exam reveals regular heart sounds S1 and S2 no gallops no murmurs Abdomen is soft with mild diffuse tenderness no organomegaly with normal bowel sounds Extremity exam reveals no edema no cyanosis or clubbing Neurological examination reveals no gross focal deficits - Labs CBC & Chem 7: 04/22/21 04:15 04/22/21 04:15 Labs: Abnormal Lab Results - Last 24 Hours (Table) 04/22/21 04/22/21 Range/Units 04:15 04:15 RBC 3.52 L (4.10-5.20) X 10*6/uL Hgb 11.3 L (12.0-15.0) g/dL Hct 35.9 L (37.2-46.3) % MCV 102.0 H (80.0-97.0) fL MCH 32.1 H (27.0-32.0) pg MCHC 31.5 L (32.0-37.0) g/dL Sodium 136 L (137-145) mmol/L Potassium 3.4 L (3.5-5.1) mmol/L Chloride 108 H (98-107) mmol/L Glucose 108 H (74-99) mg/dL Calcium 7.4 L (8.4-10.2) mg/dL Total Protein 4.7 L (6.3-8.2) g/dL Albumin 2.3 L (3.5-5.0) g/dL Assessment and Plan Plan: Small bowel obstruction with ischemia, status post exploratory laparotomy with lysis of adhesions and reduction of Aftab limb, and closure of internal hernia. Underlying history of gastroesophageal reflux disease maintained on Protonix Underlying history of restless leg syndrome Underlying history of depression with anxiety At this time patient is maintained on IV antibiotic Zosyn and is maintained on TPN Infectious disease service is consulted For DVT prophylaxis Lovenox Will recheck labs in a.m. and follow closely
[2021-04-22] MEDS: LEVOFLOXACIN 500MG-D5W PMX 500 MG in DEXTROSE/WATER 1 100ML.BAG IVPB SCH (12:57)
[2021-04-22] MEDS: MAGNESIUM SULFATE-D5W PMX 1 GM in DEXTROSE/WATER 1 100ML.BAG IVPB SCH ×2 (13:51→14:49)
--- NOTE | 2021-04-22 22:31 | P.PN ---
Subjective Progress Note Date: 04/22/21 Principal diagnosis: Ischemic small bowel Patient is a 51-year-old female presented to hospital with acute abdominal pain in this patient was diagnosed with small bowel obstruction from internal herniation and did have some ischemia of the small bowel but no perforation status post lithotomy question of the hernia. On today's evaluation that is 04/22/2021, the patient remains to be afebrile, the patient is breathing comfortably on room air, denies any chest pain yfn rtness of breath or cough no abdominal pain is currently controlled has been passing gas but no bowel movement and tolerating diet patient has developed a rash to the upper back and Zosyn was discontinued Objective - Vital Signs Vital signs: Vital Signs Temp 98.4 F 04/22/21 07:24 Pulse 90 04/22/21 12:06 Resp 17 04/22/21 08:00 BP 145/83 04/22/21 07:24 Pulse Ox 93 L 04/22/21 07:24 Intake & Output 04/21/21 04/22/21 04/22/21 18:59 06:59 18:59 Intake Total 980.333 Output Total 180 105 40 Balance -180 875.333 -40 Intake: Intake, IV Titration 980.333 Amount Parenteral Electrolytes 980.333 20 ml Sodium Phosphate 9 mmol In Amino Acids 5 %/ Dextrose 20 % 1,000 ml @ 85 mls/hr IV .BY DURATION [facility] Rx#:[id number] Output: Drainage 180 105 40 Right Abdomen 180 105 40 Other: Voiding Method Toilet Toilet Toilet # Voids 3 2 - Exam GENERAL DESCRIPTION: A middle-aged female lying in bed in no distress RESPIRATORY SYSTEM: Unlabored breathing , decreased breath sounds at bases HEART: S1 S2 regular rate and rhythm , ABDOMEN: Soft , no tenderness EXTREMITIES: No edema feet - Labs CBC & Chem 7: 04/22/21 04:15 04/22/21 04:15 Labs: Abnormal Lab Results - Last 24 Hours (Table) 04/22/21 04/22/21 Range/Units 04:15 04:15 RBC 3.52 L (4.10-5.20) X 10*6/uL Hgb 11.3 L (12.0-15.0) g/dL Hct 35.9 L (37.2-46.3) % MCV 102.0 H (80.0-97.0) fL MCH 32.1 H (27.0-32.0) pg MCHC 31.5 L (32.0-37.0) g/dL Sodium 136 L (137-145) mmol/L Potassium 3.4 L (3.5-5.1) mmol/L Chloride 108 H (98-107) mmol/L Glucose 108 H (74-99) mg/dL Calcium 7.4 L (8.4-10.2) mg/dL Total Protein 4.7 L (6.3-8.2) g/dL Albumin 2.3 L (3.5-5.0) g/dL Assessment and Plan (1) Small bowel ischemia Current Visit: Yes Status: Acute Code(s): K55.9 - VASCULAR DISORDER OF INTESTINE, UNSPECIFIED SNOMED Code(s): 45283515 Plan: Patient with admission to the hospital with acute abdominal pain nausea and vomiting diagnosed with small bowel obstruction from internal herniation status post laparotomy with no evidence of any perforation, patient seemed to have developed a rash related to Zosyn which has been discontinued antibiotic has been adjusted to Levaquin and Flagyl to continue Time with Patient: Less than 30
[2021-04-23] MEDS: metroNIDAZOLE-NS PMX 500 MG in SALINE 1 100ML.BAG IVPB SCH ×5 (00:15→23:35)
[2021-04-23] MEDS: HYDROmorphone 1 MG/ML 1 ML SYRINGE IVP PRN ×3 (03:25→20:16)
[2021-04-23 05:14] LABS: Magnesium 2.1 mg/dL (1.6-2.3)
[2021-04-23] MEDS: SODIUM CHLORIDE 0.9% 1,000 ML IV SCH ×3 (05:25→20:29)
[2021-04-23] MEDS: ENOXAPARIN 30 MG/0.3 ML SYRINGE SQ SCH (08:49)
[2021-04-23] MEDS: PANTOPRAZOLE 40 MG/10 ML VIAL IV SCH (08:49)
[2021-04-23] MEDS: ALBUTEROL NEBULIZED 2.5 MG/3 ML INHALATION SCH ×4 (09:06→19:00)
[2021-04-23 10:08] LABS: Albumin 2.7 g/dL (3.8-4.9); Albumin/Globulin Ratio 1.42 (1.60-3.17); BUN/Creat Ratio 24.2 Ratio (12.00-20.00); Blood Urea Nitrogen 12.1 mg/dL (9.0-27.0); Calcium 8.2 mg/dL (8.7-10.3); Globulin 1.9 g/dL (1.6-3.3); Non-African American GFR(CKD) 111.3 (60.0-200.0); Potassium 3.6 mmol/L (3.5-5.5); Total Bilirubin 0.3 mg/dL (0.30-1.20); Total Protein 4.6 g/dL (6.2-8.2)
[2021-04-23] MEDS: SODIUM PHOSPHATE IV SCH ×12 (10:41→22:44)
[2021-04-23] MEDS: PARENTERAL ELECTROLYTES IV SCH ×12 (10:41→22:44)
[2021-04-23] MEDS: [UNRECOGNIZED DRUG - OTHER] IV SCH ×12 (10:41→22:44)
[2021-04-23] MEDS: SODIUM ACETATE IV SCH ×12 (10:41→22:44)
[2021-04-23] MEDS: LEVOFLOXACIN 500MG-D5W PMX 500 MG in DEXTROSE/WATER 1 100ML.BAG IVPB SCH (12:05)
[2021-04-23 12:22] LABS: Basophils # (A) 0.01 X 10*3/uL (0.00-0.10); Basophils % (A) 0.2 %; Eosinophils # (A) 0.17 X 10*3/uL (0.04-0.35); Eosinophils % (A) 2.7 %; HCT 36.8 % (37.2-46.3); HGB 11.6 g/dL (12.0-15.0); Immature Grans, Automated 1.4 %; Lymphocytes # (A) 1.36 X 10*3/uL (0.90-5.00); Lymphocytes % (A) 21.7 %; MCH 31.9 pg (27.0-32.0); MCHC 31.5 g/dL (32.0-37.0); MCV 101.1 fL (80.0-97.0); Mean Platelet Volume 10.2 fL (9.5-12.2); NRBC Per 100 WBC 0 /100 WBCS (0.0-0.0); Neutrophils # (A) 4.14 X 10*3/uL (1.80-7.70); Platelet Count 192 X 10*3/uL (140-440); RBC 3.64 X 10*6/uL (4.10-5.20); RDW 12.8 % (11.5-14.5); WBC 6.27 X 10*3/uL (4.50-10.00)
[2021-04-23] MEDS ORDERED: POTASSIUM CHLORIDE 20 MEQ in WATER FOR INJECTION 1 100ML.BAG IVPB ONE (13:00)
--- NOTE | 2021-04-23 14:31 | P.PN ---
Subjective Progress Note Date: 04/23/21 CHIEF COMPLAINT: Abdominal pain with small bowel obstruction, strangulation HISTORY OF PRESENT ILLNESS: Suzanne Santamaria is a 51 year old female status post exploratory laparotomy, lysis of adhesions, reduction of closed loop obstruction due to internal hernia 04/18/2021. Patient is sitting in bed comfortably. She reports her pain is controlled. She is having bowel movements. She did have some nausea earlier which has improved. Her stools have been dark in color. She is having flatus. Pain is controlled. Afebrile. WBC is 6.27 hemoglobin 11.6 platelets 192 sodium 140 potassium is 3.6 creatinine 0.5 JIM drain with Armaan and 90 mL serosanguineous output PHYSICAL EXAM: VITAL SIGNS: Reviewed GENERAL: Well-developed in no acute distress. HEENT: No sclera icterus. Extraocular movements grossly intact. Moist buccal mucosa. Head is atraumatic, normocephalic. Hears conversational speech. No nasal drainage. NECK: Supple without lymphadenopathy. CHEST: Non-labored respirations and equal bilateral excursions. CARDIOVASCULAR: Palpable 2+ radial pulses. ABDOMEN: PREVENA dressing intact. JIM is serosanguineous. Abdominal binder present MUSCULOSKELETAL: No clubbing or cyanosis. NEUROLOGIC: No focal or lateralizing signs. Cranial nerves II through XII grossly intact. PSYCH: Appropriate affect. Alert and oriented to person, place and time. SKIN: Well perfused. Good skin turgor. ASSESSMENT: 1. Small bowel obstruction due to an internal hernia 2. Small bowel ischemia PLAN: -Advance diet to low fiber -Resume Mirapex patient's home medication -Anticipate discharge possibly tomorrow if patient tolerating diet -add oral Tylenol for pain management -Continue TPN for nutrition support -Continue antibiotics -DVT prophylaxis Lovenox Physician Entrepreneurial Finance Professor note has been reviewed by physician. Signing provider agrees with the documented findings, assessment, and plan of care. Objective - Vital Signs Vital signs: Vital Signs Temp 98.4 F 04/23/21 14:00 Pulse 74 04/23/21 14:00 Resp 17 04/23/21 14:00 BP 122/70 04/23/21 14:00 Pulse Ox 100 04/23/21 14:00 Intake & Output 04/22/21 04/23/21 04/23/21 18:59 06:59 18:59 Intake Total 1028.5 Output Total 120 190 Balance -120 -190 1028.5 Weight 89.358 kg Intake: Intake, IV Titration 1028.5 Amount Parenteral Electrolytes 1028.5 20 ml Sodium Phosphate 4. 5 mmol Sodium Acetate 14 meq In Amino Acids 5 %/ Dextrose 20 % 1,000 ml @ 85 mls/hr IV .BY DURATION [facility] Rx#:[id number] Output: Drainage 120 190 Right Abdomen 120 190 Other: Voiding Method Toilet Toilet # Voids 4 2 # Bowel Movements 3 - Labs CBC & Chem 7: 04/23/21 04:30 04/23/21 04:30 Labs: Abnormal Lab Results - Last 24 Hours (Table) 04/23/21 04/23/21 Range/Units 04:30 04:30 RBC 3.64 L (4.10-5.20) X 10*6/uL Hgb 11.6 L (12.0-15.0) g/dL Hct 36.8 L (37.2-46.3) % MCV 101.1 H (80.0-97.0) fL MCHC 31.5 L (32.0-37.0) g/dL Immature Gran # 0.09 H (0.00-0.04) X 10*3/uL Creatinine 0.5 L (0.6-1.5) mg/dL BUN/Creatinine Ratio 24.20 H (12.00-20.00) Ratio Glucose 131 H (70-110) mg/dL Calcium 8.2 L (8.7-10.3) mg/dL Total Protein 4.6 L (6.2-8.2) g/dL Albumin 2.7 L (3.8-4.9) g/dL Albumin/Globulin Ratio 1.42 L (1.60-3.17) g/dL
[2021-04-23] MEDS: ACETAMINOPHEN TAB 500 MG TAB PO SCH ×3 (17:54→23:35)
--- NOTE | 2021-04-23 19:09 | P.PN ---
Subjective Progress Note Date: 04/23/21 Suzanne Santamaria, is a 51-year-old female who presented to [facility] in [place] with a chief complaint of severe abdominal pain, she was diagnosed with small bowel obstruction with strangulation, she was transferred to [facility], she was admitted under Dr. Gamez service, Gen. surgery, and then underwent emergent exploratory laparotomy with lysis of adhesions. Postoperative diagnosis was small bowel obstruction with ischemia due to closed loop internal hernia and peritoneal adhesions, patient was admitted to medical floor post surgery stable condition, she was started on IV Zosyn and TPN. Medical consultation was requested for management while hospitalized. Patient has a known history of bariatric surgery with gastric bypass surgery 5 years ago, she also has a known history of gastroesophageal reflux disease, osteoarthritis, depression, and restless leg syndrome. On 04/20/2021 patient is alert and oriented 3 resting comfortably in chair. Patient remains on TPN. Patient on antibiotics IV Zosyn. Infectious disease service is consulted. Current temp 98.7, pulse rate 74, respiratory rate 18, blood pressure 123/70 and patient satting 93% on room air. At this time patient denies chest pain or shortness breath. Patient denies nausea vomiting or d iarrhea. Patient denies any urinary burning or frequency On 04/21/2021 patient's alert and oriented 3 resting comfortably in chair. Patient reports improvement with abdominal discomfort. Patient denies any bowel movements yet. Patient remains on IV Zosyn. Patient remains on TPN. Patient denies chest pain or shortness of breath. Patient denies nausea vomiting or diarrhea. Patient denies any urinary burning or frequency. On 04/22/2021 patient was seen and examined on the medical floor she is alert and oriented 3 in no apparent distress patient is complaining of itchy rash on her back and her thighs that developed overnight she is still having some discomfort in the abdomen, she is passing gas but had no bowel movements, there is no fever or chills no headache or dizziness no chest pain no shortness of breath no cough no nausea or vomiting no diarrhea no blood in the stools no b urning with urination no frequency or urgency and no hematuria. At this time will discontinue Zosyn, and start patient on Levaquin 500 mg IV daily, will continue with Flagyl, recheck in a.m. On 04/23/2021 patient was seen and examined on the medical floor she is alert and oriented 3 in no apparent distress, she is still complaining of some abdominal discomfort otherwise she denies any complaint rash on her back and her thyroid is improving after discontinuation of Zosyn vital examination reveals a temperature of 98.4 pulse 74 respirations 17 blood pressure 122/70 pulse ox 100% on room air, there is no fever or chills no headache or dizziness no chest pain no shortness of breath no cough no nausea or vomiting no abdominal pain and no urinary symptoms, diet is being advanced gradually. Objective - Vital Signs Vital signs: Vital Signs Temp 98.4 F 04/23/21 14:00 Pulse 86 04/23/21 15:38 Resp 17 04/23/21 14:00 BP 122/70 04/23/21 14:00 Pulse Ox 100 04/23/21 14:00 Intake & Output 04/22/21 04/23/21 04/23/21 18:59 06:59 18:59 Intake Total 1028.5 Output Total 120 190 Balance -120 -190 1028.5 Weight 89.358 kg Intake: Intake, IV Titration 1028.5 Amount Parenteral Electrolytes 1028.5 20 ml Sodium Phosphate 4. 5 mmol Sodium Acetate 14 meq In Amino Acids 5 %/ Dextrose 20 % 1,000 ml @ 85 mls/hr IV .BY DURATION [facility] Rx#:[id number] Output: Drainage 120 190 Right Abdomen 120 190 Other: Voiding Method Toilet Toilet # Voids 4 2 # Bowel Movements 3 - Exam In general patient is alert and oriented x 3 in no distress HEENT head normocephalic and atraumatic Neck is supple no JVD no goiter no lymphadenopathy no carotid bruit Chest examination is clear to auscultation no crackles no wheezing Cardiac exam reveals regular heart sounds S1 and S2 no gallops no murmurs Abdomen is soft with mild diffuse tenderness no organomegaly with normal bowel sounds Extremity exam reveals no edema no cyanosis or clubbing Neurological examination reveals no gross focal deficits - Labs CBC & Chem 7: 04/23/21 04:30 04/23/21 04:30 Labs: Abnormal Lab Results - Last 24 Hours (Table) 04/23/21 04/23/21 Range/Units 04:30 04:30 RBC 3.64 L (4.10-5.20) X 10*6/uL Hgb 11.6 L (12.0-15.0) g/dL Hct 36.8 L (37.2-46.3) % MCV 101.1 H (80.0-97.0) fL MCHC 31.5 L (32.0-37.0) g/dL Immature Gran # 0.09 H (0.00-0.04) X 10*3/uL Creatinine 0.5 L (0.6-1.5) mg/dL BUN/Creatinine Ratio 24.20 H (12.00-20.00) Ratio Glucose 131 H (70-110) mg/dL Calcium 8.2 L (8.7-10.3) mg/dL Total Protein 4.6 L (6.2-8.2) g/dL Albumin 2.7 L (3.8-4.9) g/dL Albumin/Globulin Ratio 1.42 L (1.60-3.17) g/dL Assessment and Plan Plan: Small bowel obstruction with ischemia, status post exploratory laparotomy with lysis of adhesions and reduction of [place] limb, and closure of internal hernia. Underlying history of gastroesophageal reflux disease maintained on Protonix Underlying history of restless leg syndrome Underlying history of depression with anxiety At this time patient is maintained on IV antibiotic Zosyn and is maintained on TPN Infectious disease service is consulted For DVT prophylaxis Lovenox Will recheck labs in a.m. and follow closely
[2021-04-23] MEDS ORDERED: PRAMIPEXOLE 0.5 MG TAB PO SCH (21:00)
--- NOTE | 2021-04-23 23:09 | P.PN ---
Subjective Progress Note Date: 04/23/21 Principal diagnosis: Ischemic small bowel Patient is a 51-year-old female presented to hospital with acute abdominal pain in this patient was diagnosed with small bowel obstruction from internal herniation and did have some ischemia of the small bowel but no perforation status post lithotomy question of the hernia. On today's evaluation that is 04/23/2021, the patient denies any fever or any chills, the patient is breathing comfortably on room air, the patient denies any chest pain shortness of breath or cough no abdominal pain is currently controlled has been passing gas and started having a bowel movement, rash seemed to have improved and no new rash has been noticed Objective - Vital Signs Vital signs: Vital Signs Temp 98.4 F 04/23/21 14:00 Pulse 86 04/23/21 15:38 Resp 17 04/23/21 14:00 BP 122/70 04/23/21 14:00 Pulse Ox 100 04/23/21 14:00 Intake & Output 04/22/21 04/23/21 04/23/21 18:59 06:59 18:59 Intake Total 1028.5 Output Total 120 190 Balance -120 -190 1028.5 Weight 89.358 kg Intake: Intake, IV Titration 1028.5 Amount Parenteral Electrolytes 1028.5 20 ml Sodium Phosphate 4. 5 mmol Sodium Acetate 14 meq In Amino Acids 5 %/ Dextrose 20 % 1,000 ml @ 85 mls/hr IV .BY DURATION [facility] Rx#:[id number] Output: Drainage 120 190 Right Abdomen 120 190 Other: Voiding Method Toilet Toilet # Voids 4 2 # Bowel Movements 3 - Exam GENERAL DESCRIPTION: A middle-aged female lying in bed in no distress RESPIRATORY SYSTEM: Unlabored breathing , decreased breath sounds at bases HEART: S1 S2 regular rate and rhythm , ABDOMEN: Soft , no tenderness EXTREMITIES: No edema feet - Labs CBC & Chem 7: 04/23/21 04:30 04/23/21 04:30 Labs: Abnormal Lab Results - Last 24 Hours (Table) 04/23/21 04/23/21 Range/Units 04:30 04:30 RBC 3.64 L (4.10-5.20) X 10*6/uL Hgb 11.6 L (12.0-15.0) g/dL Hct 36.8 L (37.2-46.3) % MCV 101.1 H (80.0-97.0) fL MCHC 31.5 L (32.0-37.0) g/dL Immature Gran # 0.09 H (0.00-0.04) X 10*3/uL Creatinine 0.5 L (0.6-1.5) mg/dL BUN/Creatinine Ratio 24.20 H (12.00-20.00) Ratio Glucose 131 H (70-110) mg/dL Calcium 8.2 L (8.7-10.3) mg/dL Total Protein 4.6 L (6.2-8.2) g/dL Albumin 2.7 L (3.8-4.9) g/dL Albumin/Globulin Ratio 1.42 L (1.60-3.17) g/dL Assessment and Plan (1) Small bowel ischemia Current Visit: Yes Status: Acute Code(s): K55.9 - VASCULAR DISORDER OF INTESTINE, UNSPECIFIED SNOMED Code(s): 64942003 Plan: Patient with admission to the hospital with acute abdominal pain nausea and vomiting diagnosed with small bowel obstruction from internal herniation status post laparotomy with no evidence of any perforation, patient seemed to have developed a rash related to Zosyn which has been discontinued patient to continue with Levaquin and Flagyl and monitor clinical course closely Time with Patient: Less than 30
[2021-04-24] MEDS: SODIUM CHLORIDE 0.9% 1,000 ML IV SCH ×2 (01:06→12:26)
[2021-04-24 05:31] LABS: ALT 36 U/L (4-34); AST 66 U/L (14-36); African American GFR (CKD) >90 (>60 ml/min/1.73 sqM); Albumin 2.8 g/dL (3.5-5.0); Albumin/Globulin Ratio 1.1; Alkaline Phosphatase 55 U/L (38-126); Anion Gap 9 mmol/L; Blood Urea Nitrogen 15 mg/dL (7-17); Calcium 8.2 mg/dL (8.4-10.2); Carbon Dioxide 20 mmol/L (22-30); Chloride 108 mmol/L (98-107); Globulin 2.6 g/dL; Glucose 109 mg/dL (74-99); Non-African American GFR(CKD) >90 (>60 ml/min/1.73 sqM); Phosphorus 4.4 mg/dL (2.5-4.5); Potassium 4.1 mmol/L (3.5-5.1); Sodium 137 mmol/L (137-145); Total Bilirubin 0.4 mg/dL (0.2-1.3); Total Protein 5.4 g/dL (6.3-8.2)
[2021-04-24] MEDS: ACETAMINOPHEN TAB 500 MG TAB PO SCH ×2 (05:41→11:07)
[2021-04-24] MEDS: metroNIDAZOLE-NS PMX 500 MG in SALINE 1 100ML.BAG IVPB SCH ×2 (05:41→11:07)
[2021-04-24] MEDS: ALBUTEROL NEBULIZED 2.5 MG/3 ML INHALATION SCH ×2 (08:34→12:06)
[2021-04-24 09:23] LABS: Basophils # (A) 0.02 X 10*3/uL (0.00-0.10); Basophils % (A) 0.3 %; Eosinophils % (A) 4.7 %; HCT 40.9 % (37.2-46.3); HGB 12.8 g/dL (12.0-15.0); Immature Grans, Automated 1.3 %; Lymphocytes # (A) 1.45 X 10*3/uL (0.90-5.00); Lymphocytes % (A) 22.8 %; MCH 31.5 pg (27.0-32.0); MCHC 31.3 g/dL (32.0-37.0); MCV 100.7 fL (80.0-97.0); Mean Platelet Volume 10.1 fL (9.5-12.2); Monocytes # (A) 0.58 X 10*3/uL (0.20-1.00); Monocytes % (A) 9.1 %; NRBC Per 100 WBC 0 /100 WBCS (0.0-0.0); Neutrophils # (A) 3.93 X 10*3/uL (1.80-7.70); Neutrophils % (A) 61.8 %; Platelet Count 229 X 10*3/uL (140-440); RBC 4.06 X 10*6/uL (4.10-5.20); RDW 12.7 % (11.5-14.5); WBC 6.36 X 10*3/uL (4.50-10.00)
[2021-04-24] MEDS: PANTOPRAZOLE 40 MG/10 ML VIAL IV SCH (09:41)
[2021-04-24] MEDS: ENOXAPARIN 30 MG/0.3 ML SYRINGE SQ SCH (09:42)
[2021-04-24] MEDS ORDERED: SODIUM PHOSPHATE IV SCH ×6 (10:00)
[2021-04-24] MEDS ORDERED: PARENTERAL ELECTROLYTES IV SCH ×6 (10:00)
[2021-04-24] MEDS ORDERED: SODIUM ACETATE IV SCH ×6 (10:00)
[2021-04-24] MEDS ORDERED: [UNRECOGNIZED DRUG - OTHER] IV SCH ×6 (10:00)
[2021-04-24] MEDS: LEVOFLOXACIN 500MG-D5W PMX 500 MG in DEXTROSE/WATER 1 100ML.BAG IVPB SCH (12:20)
[2021-04-24 14:48] VITALS: BP 133/77; PULSE 72; RESP 17; TEMP 98.5
--- NOTE | 2021-04-24 15:28 | P.DS ---
Providers Date of admission: 04/18/21 02:46 Expected date of discharge: 04/24/21 Attending physician: Regla Gamez Consults: 04/18/21 04:15 Consult Physician Routine Consulting Provider: [facility] Consult Reason/Comments: Anesthesia Care Do you want consulting provider notified?: Yes 04/18/21 17:55 Consult Physician Routine Consulting Provider: Jayna Avalos Consult Reason/Comments: Medical management Do you want consulting provider notified?: Yes 04/19/21 19:00 Consult Physician Routine Consulting Provider: Micheal Chandler Consult Reason/Comments: bowel ischemia Do you want consulting provider notified?: Yes Primary care physician: Orly Merino Hospital Course: Discharge diagnosis 1. Small bowel obstruction due to an internal hernia 2. Small bowel ischemia Hospital course Suzanne Santamaria is a 51 year old female who presents with acute abdominal pain. She was unable to eat. She reports initial symptoms were reflux and she tried to take omeprazole without relief. She reports no prior episode. She had gone to her local emergency room after developing 10 out of 10 generalized abdominal pain. She went to her local emergency room [facility] where she was diagnosed with small bowel obstruction with strangulation. She was transferred to the current hospital for surgical intervention. Patient is status post exploratory laparotomy, lysis of adhesions, reduction of closed loop obstruction due to internal hernia 04/18/2021. Patient tolerated surgery well. Her pain is controlled. She is having bowel movements. She is tolerating diet. She's up and ambulating. She is afebrile. She is stable for discharge. Please refer to chart for any further details. Physician Collection Systems Foreman note has been reviewed by physician. Signing provider agrees with the documented findings, assessment, and plan of care. Patient Condition at Discharge: Stable Plan - Discharge Summary Discharge Rx Participant: No New Discharge Prescriptions: New Acetaminophen Tab [Tylenol] 1,000 mg PO Q6HR PRN #12 tab PRN Reason: Pain metroNIDAZOLE [Flagyl] 500 mg PO TID 7 Days #21 tab Levofloxacin [Levaquin] 500 mg PO DAILY 7 Days #7 tab Continue Omeprazole 20 mg PO HS Pramipexole [Mirapex] 0.5 - 1 mg PO HS Discontinued Multivitamins, Thera [Multivitamin (formulary)] 1 tab PO HS Cyanocobalamin [Vitamin B-12] 500 mcg PO HS Cholecalciferol (Vitamin D3) [Vitamin D3 (5000 Iu)] 125 mcg PO HS Collagen Powder 1 scoop PO HS Calcium Citrate 250 mg PO HS Wheat Dextrin [Benefiber] 1 packet PO HS Discharge Medication List Omeprazole 20 mg PO HS 09/11/20 [History] Pramipexole [Mirapex] 0.5 - 1 mg PO HS 09/11/20 [History] Acetaminophen Tab [Tylenol] 1,000 mg PO Q6HR PRN #12 tab 04/24/21 [Rx] Levofloxacin [Levaquin] 500 mg PO DAILY 7 Days #7 tab 04/24/21 [Rx] metroNIDAZOLE [Flagyl] 500 mg PO TID 7 Days #21 tab 04/24/21 [Rx] Follow up Appointment(s)/Referral(s): Orly Merino MD [Primary Care Provider] - 04/25/21 11:00 am [facility] [place] [facility] - 05/02/21 1:30 pm Activity/Diet/Wound Care/Special Instructions: Wear abdominal binder at all times for comfort. No lifting over 4 pounds in 4 weeks until May 16. You May shower. No bath tub soaks for two weeks until May 02 Avoid steak, tough meats and seeds such as raspberry seeds. Use Tylenol scheduled for the next 24-48 hours for best pain relief. Continue a low fiber diet until seen by surgeon Keep a log of JIM drain output and bring with you to your follow-up appointment Milk/strip drains 2-3 times a day Discharge Disposition: HOME SELF-CARE
--- NOTE | 2021-04-24 19:37 | P.PN ---
Subjective Progress Note Date: 04/24/21 Suzanne Santamaria, is a 51-year-old female who presented to [facility] in [place] with a chief complaint of severe abdominal pain, she was diagnosed with small bowel obstruction with strangulation, she was transferred to [facility], she was admitted under Dr. Gamez service, Gen. surgery, and then underwent emergent exploratory laparotomy with lysis of adhesions. Postoperative diagnosis was small bowel obstruction with ischemia due to closed loop internal hernia and peritoneal adhesions, patient was admitted to medical floor post surgery stable condition, she was started on IV Zosyn and TPN. Medical consultation was requested for management while hospitalized. Patient has a known history of bariatric surgery with gastric bypass surgery 5 years ago, she also has a known history of gastroesophageal reflux disease, osteoarthritis, depression, and restless leg syndrome. On 04/20/2021 patient is alert and oriented 3 resting comfortably in chair. Patient remains on TPN. Patient on antibiotics IV Zosyn. Infectious disease service is consulted. Current temp 98.7, pulse rate 74, respiratory rate 18, blood pressure 123/70 and patient satting 93% on room air. At this time patient denies chest pain or shortness breath. Patient denies nausea vomiting or d iarrhea. Patient denies any urinary burning or frequency On 04/21/2021 patient's alert and oriented 3 resting comfortably in chair. Patient reports improvement with abdominal discomfort. Patient denies any bowel movements yet. Patient remains on IV Zosyn. Patient remains on TPN. Patient denies chest pain or shortness of breath. Patient denies nausea vomiting or diarrhea. Patient denies any urinary burning or frequency. On 04/22/2021 patient was seen and examined on the medical floor she is alert and oriented 3 in no apparent distress patient is complaining of itchy rash on her back and her thighs that developed overnight she is still having some discomfort in the abdomen, she is passing gas but had no bowel movements, there is no fever or chills no headache or dizziness no chest pain no shortness of breath no cough no nausea or vomiting no diarrhea no blood in the stools no b urning with urination no frequency or urgency and no hematuria. At this time will discontinue Zosyn, and start patient on Levaquin 500 mg IV daily, will continue with Flagyl, recheck in a.m. On 04/23/2021 patient was seen and examined on the medical floor she is alert and oriented 3 in no apparent distress, she is still complaining of some abdominal discomfort otherwise she denies any complaint rash on her back and her thyroid is improving after discontinuation of Zosyn vital examination reveals a temperature of 98.4 pulse 74 respirations 17 blood pressure 122/70 pulse ox 100% on room air, there is no fever or chills no headache or dizziness no chest pain no shortness of breath no cough no nausea or vomiting no abdominal pain and no urinary symptoms, diet is being advanced gradually. On 04/24/2020 patient was seen and examined on the medical floor she is alert and oriented 3 in no apparent distress there is no fever or chills no headache or dizziness no chest pain no shortness of breath no cough no nausea or vomiting no abdominal pain no diarrhea no blood in the stools no burning with urination no frequency or urgency and no hematuria patient is scheduled for discharged home today she is medically stable he would be followed by her primary care physician Dr. Merino within one week Objective - Vital Signs Vital signs: Vital Signs Temp 98.3 F 04/24/21 07:59 Pulse 64 04/24/21 08:48 Resp 18 04/24/21 07:59 BP 121/77 04/24/21 07:59 Pulse Ox 96 04/24/21 07:59 Intake & Output 04/23/21 04/24/21 04/24/21 18:59 06:59 18:59 Intake Total 1028.5 2044.25 Output Total 30 80 Balance 998.5 1964.25 Weight 89.358 kg Intake: Intake, IV Titration 1028.5 2044.25 Amount Mvi, Adult No.4 with Vit 1020 K 10 ml Trace (Conc-1Ml/ Dose) 1 ml Parenteral Electrolytes 20 ml Sodium Phosphate 4.5 mmol Sodium Acetate 14 meq In Amino Acids 5 %/Dextrose 20 % 1,000 ml @ 85 mls/hr IV .BY DURATION LIANET Rx#: [id number] Parenteral Electrolytes 1028.5 1024.25 20 ml Sodium Phosphate 4. 5 mmol Sodium Acetate 14 meq In Amino Acids 5 %/ Dextrose 20 % 1,000 ml @ 85 mls/hr IV .BY DURATION LIANET Rx#:[id number] Output: Drainage 30 80 Right Abdomen 30 80 Other: Voiding Method Toilet Toilet # Voids 2 3 - Exam In general patient is alert and oriented x 3 in no distress HEENT head normocephalic and atraumatic Neck is supple no JVD no goiter no lymphadenopathy no carotid bruit Chest examination is clear to auscultation no crackles no wheezing Cardiac exam reveals regular heart sounds S1 and S2 no gallops no murmurs Abdomen is soft with mild diffuse tenderness no organomegaly with normal bowel sounds Extremity exam reveals no edema no cyanosis or clubbing Neurological examination reveals no gross focal deficits - Labs CBC & Chem 7: 04/24/21 04:42 04/24/21 04:42 Labs: Abnormal Lab Results - Last 24 Hours (Table) 04/23/21 04/23/21 04/24/21 Range/Units 04:30 04:30 04:42 RBC 3.64 L (4.10-5.20) X 10*6/uL Hgb 11.6 L (12.0-15.0) g/dL Hct 36.8 L (37.2-46.3) % MCV 101.1 H (80.0-97.0) fL MCHC 31.5 L (32.0-37.0) g/dL Immature Gran # 0.09 H (0.00-0.04) X 10*3/uL Chloride 108 H (98-107) mmol/L Carbon Dioxide 20 L (22-30) mmol/L Creatinine 0.5 L 0.51 L (0.6-1.5) mg/dL BUN/Creatinine Ratio 24.20 H (12.00-20.00) Ratio Glucose 131 H 109 H (70-110) mg/dL Calcium 8.2 L 8.2 L (8.7-10.3) mg/dL AST 66 H (14-36) U/L ALT 36 H (4-34) U/L Total Protein 4.6 L 5.4 L (6.2-8.2) g/dL Albumin 2.7 L 2.8 L (3.8-4.9) g/dL Albumin/Globulin Ratio 1.42 L (1.60-3.17) g/dL 04/24/21 Range/Units 04:42 RBC 4.06 L (4.10-5.20) X 10*6/uL Hgb (12.0-15.0) g/dL Hct (37.2-46.3) % MCV 100.7 H (80.0-97.0) fL MCHC 31.3 L (32.0-37.0) g/dL Immature Gran # 0.08 H (0.00-0.04) X 10*3/uL Chloride (98-107) mmol/L Carbon Dioxide (22-30) mmol/L Creatinine (0.6-1.5) mg/dL BUN/Creatinine Ratio (12.00-20.00) Ratio Glucose (70-110) mg/dL Calcium (8.7-10.3) mg/dL AST (14-36) U/L ALT (4-34) U/L Total Protein (6.2-8.2) g/dL Albumin (3.8-4.9) g/dL Albumin/Globulin Ratio (1.60-3.17) g/dL Assessment and Plan Plan: Small bowel obstruction with ischemia, status post exploratory laparotomy with lysis of adhesions and reduction of Aftab limb, and closure of internal hernia. Underlying history of gastroesophageal reflux disease maintained on Protonix Underlying history of restless leg syndrome Underlying history of depression with anxiety At this time patient is maintained on IV antibiotic Zosyn and is maintained on TPN Infectious disease service is consulted For DVT prophylaxis Lovenox Will recheck labs in a.m. and follow closely
--- NOTE | 2021-05-01 22:55 | P.PN ---
Subjective Progress Note Date: 04/24/21 Principal diagnosis: Ischemic small bowel Patient is a 51-year-old female presented to hospital with acute abdominal pain in this patient was diagnosed with small bowel obstruction from internal herniation and did have some ischemia of the small bowel but no perforation status post lithotomy question of the hernia. On today's evaluation that is 04/24/2021, the patient remains to be febrile, the patient is breathing comfortably on room air, the patient denies any chest pain shortness of breath or cough no abdominal pain is currently controlled has been passing gas and did have a bowel movement Objective - Vital Signs Vital signs: Vital Signs Temp 98.3 F 04/24/21 07:59 Pulse 64 04/24/21 08:48 Resp 18 04/24/21 07:59 BP 121/77 04/24/21 07:59 Pulse Ox 96 04/24/21 07:59 Intake & Output 04/23/21 04/24/21 04/24/21 18:59 06:59 18:59 Intake Total 1028.5 2044.25 Output Total 30 80 Balance 998.5 1964.25 Weight 89.358 kg 89.358 kg Intake: Intake, IV Titration 1028.5 2044.25 Amount Mvi, Adult No.4 with Vit 1020 K 10 ml Trace (Conc-1Ml/ Dose) 1 ml Parenteral Electrolytes 20 ml Sodium Phosphate 4.5 mmol Sodium Acetate 14 meq In Amino Acids 5 %/Dextrose 20 % 1,000 ml @ 85 mls/hr IV .BY DURATION LIANET Rx#: [id number] Parenteral Electrolytes 1028.5 1024.25 20 ml Sodium Phosphate 4. 5 mmol Sodium Acetate 14 meq In Amino Acids 5 %/ Dextrose 20 % 1,000 ml @ 85 mls/hr IV .BY DURATION LIANET Rx#:[id number] Output: Drainage 30 80 Right Abdomen 30 80 Other: Voiding Method Toilet Toilet Toilet # Voids 2 3 - Exam GENERAL DESCRIPTION: A middle-aged female lying in bed in no distress RESPIRATORY SYSTEM: Unlabored breathing , decreased breath sounds at bases HEART: S1 S2 regular rate and rhythm , ABDOMEN: Soft , no tenderness EXTREMITIES: No edema feet - Labs CBC & Chem 7: 04/24/21 04:42 04/24/21 04:42 Labs: Abnormal Lab Results - Last 24 Hours (Table) 04/23/21 04/24/2104/24/22 Range/Units 04:30 04:42 04:42 RBC 3.64 L 4.06 L (4.10-5.20) X 10*6/uL Hgb 11.6 L (12.0-15.0) g/dL Hct 36.8 L (37.2-46.3) % MCV 101.1 H 100.7 H (80.0-97.0) fL MCHC 31.5 L 31.3 L (32.0-37.0) g/dL Immature Gran # 0.09 H 0.08 H (0.00-0.04) X 10*3/uL Chloride 108 H (98-107) mmol/L Carbon Dioxide 20 L (22-30) mmol/L Creatinine 0.51 L (0.52-1.04) mg/dL Glucose 109 H (74-99) mg/dL Calcium 8.2 L (8.4-10.2) mg/dL AST 66 H (14-36) U/L ALT 36 H (4-34) U/L Total Protein 5.4 L (6.3-8.2) g/dL Albumin 2.8 L (3.5-5.0) g/dL Assessment and Plan (1) Small bowel ischemia Status: Acute Code(s): K55.9 - VASCULAR DISORDER OF INTESTINE, UNSPECIFIED SNOMED Code(s): 83383440 Plan: Patient with admission to the hospital with acute abdominal pain nausea and vo miting diagnosed with small bowel obstruction from internal herniation status post laparotomy with no evidence of any perforation, patient seemed to have developed a rash related to Zosyn which has been discontinued patient seems to be doing well with Levaquin and Flagyl which will be continued for a week on discharge and close outpatient follow-up Time with Patient: Less than 30
== END 2021-04-24 16:37 | disposition home or self-care (01) | DRG 336 ==
LOC: EC 01:57 → 5NMEDONC 02:46 → 6NMEDSUR 05:41 → 4SSUR 05:42
PROVIDERS: ADMIT Surgery Plastic and Reconstructive Surgery; ATTEND Surgery Plastic and Reconstructive Surgery
PROC: 0W9G00Z Drainage of Peritoneal Cavity with Drainage Device, Open Approach (ICD-10-PCS; 2021-04-18)
PROC: 02HV33Z Insertion of Infusion Device into Superior Vena Cava, Percutaneous Approach (ICD-10-PCS; 2021-04-18)
PROC: 3E1M38Z Irrigation of Peritoneal Cavity using Irrigating Substance, Percutaneous Approach (ICD-10-PCS; 2021-04-18)
PROC: 0DQV0ZZ Repair Mesentery, Open Approach (ICD-10-PCS; 2021-04-18)
PROC: 0DN80ZZ Release Small Intestine, Open Approach (ICD-10-PCS; principal; 2021-04-18 04:29)
PROC: 3E0336Z Introduction of Nutritional Substance into Peripheral Vein, Percutaneous Approach (ICD-10-PCS; 2021-04-19)
DX: K95.89 Other complications of other bariatric procedure (principal); K46.0 Unspecified abdominal hernia with obstruction, without gangrene; K55.1 Chronic vascular disorders of intestine; R18.8 Other ascites; K56.50 Intestinal adhesions [bands], unspecified as to partial versus complete obstruction; F32.A Depression, unspecified; F41.1 Generalized anxiety disorder; G25.81 Restless legs syndrome; K21.00 Gastro-esophageal reflux disease with esophagitis, without bleeding; Z20.822 Contact with and (suspected) exposure to COVID-19; M17.0 Bilateral primary osteoarthritis of knee; I11.9 Hypertensive heart disease without heart failure; Z77.22 Contact with and (suspected) exposure to environmental tobacco smoke (acute) (chronic); Z79.2 Long term (current) use of antibiotics; Z82.5 Family history of asthma and other chronic lower respiratory diseases; Z87.891 Personal history of nicotine dependence; Z90.710 Acquired absence of both cervix and uterus; G47.33 Obstructive sleep apnea (adult) (pediatric); Y83.8 Other surgical procedures as the cause of abnormal reaction of the patient, or of later complication, without mention of misadventure at the time of the procedure
CPT/HCPCS: 36573; 80048; 80053; 82150; 82330; 83605; 83690; 83735; 84100; 84478; 85025; 87635; 88307; 94640; 94760

== ENCOUNTER → 2021-05-02 | Outpatient (CLI) | payer OTHER ==
[2021-05-02 14:32] VITALS: BP 145/77; PULSE 66; RESP 16; TEMP 98.4; BMI 33.0
--- NOTE | 2021-05-02 15:02 | P.BASOAP ---
Subjective Progress Note Date: 05/02/21 DATE OF SERVICE: 05/02/2021 CHIEF COMPLAINT: Status post gastric bypass. HISTORY OF PRESENT ILLNESS: Suzanne Santamaria is a 51 year old female status post robotic gastric bypass, 07/19/16. She is 5 years out. She is status post laparotomy for small bowel obstruction, 04/18/2021. She is 2 week out. No reports of constipation. No reports of diarrhea. Her pain is controlled. At her height of 5 feet 3-3/4 inch frame, her ideal body weight is 140 pounds. Her highest weight is 256 pounds. She comes in 191 pounds from 190 pounds, 6 months ago. She has lost 1 pound in 6 months. She has lost 65 pounds lifetime. Her body mass index is reduced from 44.4 down to 333.0. Lifetime percent excess weight loss is 56%. PHYSICAL EXAM: VITAL SIGNS: 5 feet 3 3/4 inch frame, 191 pounds, body mass index 33.0 Vital Signs Temp 98.4 F 05/02/21 14:30 Pulse 66 05/02/21 14:30 Resp 16 05/02/21 14:30 BP 145/77 05/02/21 14:30 Pulse Ox GENERAL: Well-developed, pleasant female in no acute distress. HEENT: No clubbing, cyanosis, or edema. NECK: Supple without lymphadenopathy. CHEST: Nonlabored respirations. Equal bilateral excursions. CARDIOVASCULAR: Regular rate and rhythm. ABDOMEN: JIM drain discontinued. No infection. MUSCULOSKELETAL: No clubbing, cyanosis or edema. NEURO: No focal or lateralizing signs. Cranial nerves II through XII grossly within normal limits. PSYCH: Alert and order person place and time. Appropriate affect. SKIN: Well perfused. Good skin turgor. ASSESSMENT: 1. Morbid obesity due to excess calories. 2. Body mass index reduced from 44.4 down to 33.0 3. Status post Aftab-En-Y gastric bypass. 4. Gastroesophageal reflux disease 5. Epigastric abdominal pain 6. Chronic constipation. 7. Status post laparotomy for small bowel obstruction. PLAN: 1. JIM drain discontinued. 2. Return in 2 weeks for staple removal. 3. Recommend at least 4-6 weeks recovery prior to return to work. Objective - Vital Signs Vital signs: Vital Signs Temp 98.4 F 05/02/21 14:30 Pulse 66 05/02/21 14:30 Resp 16 05/02/21 14:30 BP 145/77 05/02/21 14:30 Pulse Ox Intake & Output 05/01/21 05/02/21 05/02/21 18:59 06:59 18:59 Weight 86.636 kg Assessment/Plan Plan: Date: 05/02/21 Initial Weight: 113.398 kg Initial BMI: 43.2 Current Weight: 86.636 kg Current BMI: 33.0 Type of Surgery: Total Volume in Band: Previous Volume: Volume Removed: Volume Added: Band Size:
== END ==
LOC: BARWHC3 13:16
PROVIDERS: ATTEND Surgery Plastic and Reconstructive Surgery
DX: E66.01 Morbid (severe) obesity due to excess calories (principal); Z68.33 Body mass index [BMI] 33.0-33.9, adult; Z98.84 Bariatric surgery status; K21.9 Gastro-esophageal reflux disease without esophagitis; K59.09 Other constipation; Z98.890 Other specified postprocedural states; Z88.5 Allergy status to narcotic agent; Z88.0 Allergy status to penicillin; Z87.891 Personal history of nicotine dependence
CPT/HCPCS: 99211

== ENCOUNTER → 2021-05-16 | Outpatient (CLI) | payer OTHER ==
[2021-05-16 13:49] VITALS: BP 118/81; PULSE 56; RESP 16; TEMP 98.2; BMI 33.2
--- NOTE | 2021-05-16 14:48 | P.BASOAP ---
Subjective Progress Note Date: 05/16/21 DATE OF SERVICE: 05/16/2021 CHIEF COMPLAINT: Status post gastric bypass. HISTORY OF PRESENT ILLNESS: Suzanne Santamaria is a 51 year old female status post robotic gastric bypass, 07/19/16. She is 5 years out. She is status post laparotomy for small bowel obstruction, 04/18/2021. She is 1 month out. No infections. No reports of abdominal pain at this time. At her height of 5 feet 3-3/4 inch frame, her ideal body weight is 140 pounds. Her highest weight is 256 pounds. She comes in 192 pounds from 191 pounds, 3 weeks ago. She has gained 1 pound in 3 weeks. She has lost 64 pounds lifetime. Her body mass index is reduced from 44.4 down to 33.2. Lifetime percent excess weight loss is 56%. PHYSICAL EXAM: VITAL SIGNS: 5 feet 3 3/4 inch frame, 191 pounds, body mass index 33.0 Vital Signs Temp 98.2 F 05/16/21 13:41 Pulse 56 L 05/16/21 13:41 Resp 16 05/16/21 13:41 BP 118/81 05/16/21 13:41 Pulse Ox GENERAL: Well-developed, pleasant female in no acute distress. HEENT: No clubbing, cyanosis, or edema. NECK: Supple without lymphadenopathy. CHEST: Nonlabored respirations. Equal bilateral excursions. CARDIOVASCULAR: Regular rate and rhythm. ABDOMEN: Incisions granulated. All vivek removed. MUSCULOSKELETAL: No clubbing, cyanosis or edema. NEURO: No focal or lateralizing signs. Cranial nerves II through XII grossly within normal limits. PSYCH: Alert and order person place and time. Appropriate affect. SKIN: Well perfused. Good skin turgor. ASSESSMENT: 1. Morbid obesity due to excess calories. 2. Body mass index reduced from 44.4 down to 33.2 3. Status post Aftab-En-Y gastric bypass. 4. Gastroesophageal reflux disease 5. Epigastric abdominal pain 6. Chronic constipation. 7. Status post laparotomy for small bowel obstruction. PLAN: 1. Wound management described. 2. Plan for follow-up. Objective - Vital Signs Vital signs: Vital Signs Temp 98.2 F 05/16/21 13:41 Pulse 56 L 05/16/21 13:41 Resp 16 05/16/21 13:41 BP 118/81 05/16/21 13:41 Pulse Ox Intake & Output 05/15/21 05/16/21 05/16/21 18:59 06:59 18:59 Weight 87.09 kg Assessment/Plan Plan: Date: 05/16/21 Initial Weight: 113.398 kg Initial BMI: 43.2 Current Weight: 87.09 kg Current BMI: 33.2 Type of Surgery: Total Volume in Band: Previous Volume: Volume Removed: Volume Added: Band Size:
== END ==
LOC: BARWHC3 13:27
PROVIDERS: ATTEND Surgery Plastic and Reconstructive Surgery
DX: E66.01 Morbid (severe) obesity due to excess calories (principal); Z68.33 Body mass index [BMI] 33.0-33.9, adult; Z98.84 Bariatric surgery status; K21.9 Gastro-esophageal reflux disease without esophagitis; K59.09 Other constipation; Z98.890 Other specified postprocedural states; Z88.0 Allergy status to penicillin; Z88.5 Allergy status to narcotic agent; Z87.891 Personal history of nicotine dependence
CPT/HCPCS: 99212

== ENCOUNTER → 2021-06-04 | Outpatient (CLI) | payer OTHER ==
--- NOTE | 2021-06-04 18:55 | CT ---
EXAMINATION TYPE: CT abdomen pelvis w con DATE OF EXAM: 06/04/2021 COMPARISON: CT dated 09/07/2020 HISTORY: Generalized abdominal pain and nausea. CT DLP: 1085.8 mGycm Automated exposure control for dose reduction was used. TECHNIQUE: Helical acquisition of images was performed from the lung bases through the pelvis. CONTRAST: Performed with Oral Contrast and with IV Contrast, patient injected with 100ml mL of Isovue 300. FINDINGS: LUNG BASES: Stable millimetric left basal pulmonary nodules. LIVER/GB: Stable right hepatic lobe cyst. Nonvisualized gallbladder. PANCREAS: No significant abnormality is seen. SPLEEN: No significant abnormality is seen. ADRENALS: No significant abnormality is seen. KIDNEYS: No significant abnormality is seen. FREE AIR: No free air is visualized. RETROPERITONEAL ADENOPATHY: None visualized REPRODUCTIVE ORGANS: Previous hysterectomy. Suspected left ovarian/adnexal cyst measuring 2.5 cm. Rec ommend further pelvic ultrasound assessment. Small amount of left posterior pelvic fluid. URINARY BLADDER: No significant abnormality is seen. PELVIC ADENOPATHY: None visualized. OSSEOUS STRUCTURES: No gross aggressive bone lesion. BOWEL: Previous gastric surgery and gastrojejunostomy. No evidence of bowel obstruction. Nonspecific wall thickening of small bowel loops in the left side of the abdomen. Fecal loading of the colon. Si gnificant wall thickening of the inferior aspect of the ascending colon which could be related to foc al colitis however underlying lesion cannot be excluded, please correlate with colonoscopy results. OTHER: Mesenteric vascular twisting seen in the mid abdomen, underlying uncomplicated internal hernia cannot be excluded. Small amount of free fluid is seen in the right side of the lower abdomen/pelvis and along the right paracolic gutter. IMPRESSION: Multilevel thickening of the inferior aspect of the ascending colon with a small amount of right abdo arlette and pelvic fluid. This could be the related to focal colitis however underlying lesion can't be excluded. Please correlate clinically and with stool analysis results. Further colonoscopy can be al so considered. Nonspecific wall thickening of small bowel loops in the left side of the abdomen with twisting of mes enteric vessels, underlying small bowel lesion or uncomplicated internal hernia cannot be excluded. O ther incidental findings as described above.
== END | disposition home or self-care (01) ==
LOC: RADCTMAIN 13:11
PROVIDERS: ATTEND Surgery Plastic and Reconstructive Surgery
DX: K63.89 Other specified diseases of intestine (principal)
CPT/HCPCS: 74177; Q9967

== ENCOUNTER → 2021-06-06 | Outpatient (CLI) | payer OTHER ==
[2021-06-06 17:32] VITALS: BP 118/77; PULSE 65; RESP 16; TEMP 97.7; BMI 33.3
--- NOTE | 2021-06-06 23:16 | P.BASOAP ---
Subjective Progress Note Date: 06/06/21 DATE OF SERVICE: 06/06/2021 CHIEF COMPLAINT: Status post gastric bypass. HISTORY OF PRESENT ILLNESS: Suzanne Santamaria is a 51 year old female status post robotic gastric bypass, 07/19/16. She is 5 years out. She is status post laparotomy for small bowel obstruction, 04/18/2021. She is 2 month outs. She is back on probiotics. She reports new left upper quadrant abdominal pain that is crampy following drinking alcohol. Her pain is worse after eating carrots and vegetables. At her height of 5 feet 3-3/4 inch frame, her ideal body weight is 140 pounds. Her highest weight is 256 pounds. She comes in 193 pounds from 192 pounds, 1 month ago. She has gained 1 pound in 1 month. She has lost 63 pounds lifetime. Her body mass index is reduced from 44.4 down to 33.4. Lifetime percent excess weight loss is 55%. PHYSICAL EXAM: VITAL SIGNS: 5 feet 3 3/4 inch frame, 193 pounds, body mass index 33.4 Vital Signs Temp 97.7 F 06/06/21 17:29 Pulse 65 06/06/21 17:29 Resp 16 06/06/21 17:29 BP 118/77 06/06/21 17:29 Pulse Ox GENERAL: Well-developed, pleasant female in no acute distress. HEENT: No clubbing, cyanosis, or edema. NECK: Supple without lymphadenopathy. CHEST: Nonlabored respirations. Equal bilateral excursions. CARDIOVASCULAR: Regular rate and rhythm. ABDOMEN: Soft, nondistended. No hernia. MUSCULOSKELETAL: No clubbing, cyanosis or edema. NEURO: No focal or lateralizing signs. Cranial nerves II through XII grossly within normal limits. PSYCH: Alert and order person place and time. Appropriate affect. SKIN: Well perfused. Good skin turgor. STUDIES: CT of the abdomen and pelvis independently reviewed. CT reviewed with internal hernia and colitis. This is my independent interpretation. ASSESSMENT: 1. Morbid obesity due to excess calories. 2. Body mass index reduced from 44.4 down to 33.4 3. Status post Aftab-En-Y gastric bypass. 4. Gastroesophageal reflux disease 5. Epigastric abdominal pain 6. Chronic constipation. 7. Status post laparotomy for small bowel obstruction. PLAN: 1. Robotic exploration for abnormal CT scan reviewed due to prior bowel obstruction and current abdominal pain. 2. Recommend avoid alcohol and ruffage such as spinach, broccoli, carrots reviewed. Objective - Vital Signs Vital signs: Vital Signs Temp 97.7 F 06/06/21 17:29 Pulse 65 06/06/21 17:29 Resp 16 06/06/21 17:29 BP 118/77 06/06/21 17:29 Pulse Ox Intake & Output 06/05/21 06/06/21 06/06/21 18:59 06:59 18:59 Weight 87.543 kg Assessment/Plan Plan: Date: 06/06/21 Initial Weight: 113.398 kg Initial BMI: 43.2 Current Weight: 87.543 kg Current BMI: 33.3 Type of Surgery: Total Volume in Band: Previous Volume: Volume Removed: Volume Added: Band Size:
== END ==
LOC: BARWHC3 16:31
PROVIDERS: ATTEND Surgery Plastic and Reconstructive Surgery
DX: E66.01 Morbid (severe) obesity due to excess calories (principal); Z68.33 Body mass index [BMI] 33.0-33.9, adult; Z98.84 Bariatric surgery status; K21.9 Gastro-esophageal reflux disease without esophagitis; Z98.890 Other specified postprocedural states; K59.09 Other constipation; Z88.0 Allergy status to penicillin; Z88.5 Allergy status to narcotic agent; Z87.891 Personal history of nicotine dependence
CPT/HCPCS: 99211

== ENCOUNTER 2021-06-08 09:12 | Day surgery (SDC) | payer OTHER ==
[2021-06-07 10:21] VITALS: BMI 32.4
--- NOTE | 2021-06-08 06:35 | P.GSHP ---
History of Present Illness H&P Date: 06/08/21 CHIEF COMPLAINT: History of intra-abdominal adhesions HISTORY OF PRESENT ILLNESS: The patient is a 51-year-old female who presents with history of intra-abdominal adhesions from multiple prior surgeries including increasing abdominal pain. She now presents for diagnostic laparoscopy including lysis of adhesions. PAST MEDICAL HISTORY: Please see list. PAST SURGICAL HISTORY: Please see list. MEDICATIONS: Please see list. ALLERGIES: Please see list. SOCIAL HISTORY: No illicit drug use FAMILY HISTORY: No reports of Crohn disease or ulcerative colitis. REVIEW OF ORGAN SYSTEMS: CONSTITUTIONAL: No reports of fevers or chills. GI: Denies any blood in stools or constipation. PHYSICAL EXAM: VITAL SIGNS: Stable GENERAL: Well-developed pleasant and in no acute distress. HEENT: No scleral icterus. Extraocular movements grossly intact. Moist buccal mucosa. NECK: Supple without lymphadenopathy. CHEST: Unlabored respirations. Equal bilateral excursions. CARDIOVASCULAR: Regular rate and rhythm. Distal 2+ pulses. ABDOMEN: Soft, diffuse abdominal tenderness. No peritonitis. MUSCULOSKELETAL: No clubbing, cyanosis, or edema. ASSESSMENT: 1. Diffuse abdominal pain. 2. History of multiple abdominal surgeries. 3. Intra-abdominal adhesions. PLAN: 1. Robotic lysis of adhesions were described in detail including risk of injury to the intestine, need for further surgery, and open technique. 2. DVT prophylaxis. 3. Antibiotic prophylaxis. Past Medical History Past Medical History: GERD/Reflux, Osteoarthritis (OA) Additional Past Medical History / Comment(s): , restless leg syndrome. bowel obstruction apr 18, 2021 History of Any Multi-Drug Resistant Organisms: None Reported Past Surgical History: Appendectomy, Bariatric Surgery, Cholecystectomy, Hysterectomy, Tonsillectomy Additional Past Surgical History / Comment(s): egd, GASTRIC BYPASS, lysis of adhesions 10-09-20 Past Anesthesia/Blood Transfusion Reactions: Motion Sickness Additional Past Anesthesia/Blood Transfusion Reaction / Comment(s): difficulty waking up Smoking Status: Former smoker, Second hand smoke exposure - Past Family History Mother Family Medical History: Asthma, Rheumatoid Arthritis (RA) Medications and Allergies Home Medications Medication Instructions Recorded Confirmed Type Omeprazole 20 mg PO HS 09/11/20 06/07/21 History Pramipexole [Mirapex] 0.5 - 1 mg PO HS 09/11/20 06/07/21 History Acetaminophen Tab [Tylenol] 1,000 mg PO Q6HR PRN #12 tab 04/24/21 06/07/21 Rx Allergies Allergy/AdvReac Type Severity Reaction Status Date / Time penicillin G Allergy Rash/Hives Verified 06/07/21 10:13 hydrocodone [From Vicodin] AdvReac Nausea & Verified 06/07/21 10:13 Vomiting propoxyphene AdvReac Nausea & Verified 06/07/21 10:13 [From Darvocet-N] Vomiting
[~2021-06-08 09:12] MED LIST changes: -DEXAMETHASONE SOD PHOSPHATE 10 MG/ML 1 ML VIAL IV PRN; +DEXAMETHASONE SOD PHOSPHATE 10 MG/ML 1 ML VIAL IVP PRN; -LIDOCAINE 1% (10MG/ML) FOR IV START INTRADERMA PRN; +MIDAZOLAM 2 MG/2 ML VIAL IV PRN; +Pre Op ABX Message 1 EACH MISC MISCELLANE ONE; +SCOPOLAMINE 1 MG/72 HR PATCH TRANSDERM ONE; -SCOPOLAMINE 1.5MG/72HR PATCH TRANSDERM PRN; +fentaNYL (PF) 50 MCG/ML 2 ML AMP IV PRN
[2021-06-08] MEDS ORDERED: fentaNYL (PF) 50 MCG/ML 2 ML AMP IVP ONE (10:33)
[2021-06-08] MEDS ORDERED: MIDAZOLAM 2 MG/2 ML VIAL IVP ONE (10:33)
[2021-06-08] MEDS ORDERED: HEPARIN SODIUM,PORCINE 5,000 UNIT/ML 1 ML VIAL SQ ONE (10:54)
[2021-06-08] MEDS ORDERED: GLYCOPYRROLATE 0.2 MG/ML 2 ML VIAL ONE (11:43)
[2021-06-08] MEDS ORDERED: SODIUM CHLORIDE 0.9% (PF) 10 ML VIAL ONE (11:43)
[2021-06-08] MEDS ORDERED: MIDAZOLAM 2 MG/2 ML VIAL ONE (11:43)
[2021-06-08] MEDS ORDERED: diphenhydrAMINE 50 MG/ML 1 ML VIAL ONE (11:43)
[2021-06-08] MEDS ORDERED: NEOSTIGMINE 1 MG/ML 10 ML VIAL ONE (11:43)
[2021-06-08] MEDS ORDERED: ROPIVACAINE 5 MG/ML 30 ML VIAL ONE (11:43)
[2021-06-08] MEDS ORDERED: SUCCINYLCHOLINE CHLORIDE VIAL 200 MG/10 ML VIAL IV ONE (11:43)
[2021-06-08] MEDS ORDERED: HYDROmorphone (PF) 1 MG/ML ONE (11:43)
[2021-06-08] MEDS ORDERED: PHENYLEPHRINE-0.9% NACL SYG 1,000 MCG/10 ML SYRINGE ONE (11:43)
[2021-06-08] MEDS ORDERED: fentaNYL (PF) 50 MCG/ML 2 ML AMP ONE (11:43)
[2021-06-08] MEDS ORDERED: SUCCINYLCHOLINE CHLORIDE 100 MG/5 ML SYR IV ONE (11:43)
[2021-06-08] MEDS ORDERED: LIDOCAINE 1% INJ 10MG/ML (20 ML MDV) ONE (11:43)
[2021-06-08] MEDS ORDERED: ROCURONIUM 10 MG/ML (5 ML VIAL) IV ONE (11:43)
[2021-06-08] MEDS ORDERED: BUPIVACAINE (PF) 0.25% 30 ML VIAL SQ ONE (12:21)
[2021-06-08] MEDS ORDERED: LACTATED RINGERS 1,000 ML IV ONE (12:30)
--- NOTE | 2021-06-08 14:03 | P.ANPRN ---
Procedure Note - Anesthesia - Nerve Block Performed Bilateral Erector Spinae Time Out Performed: Yes (:32) Date of Procedure: 06/08/21 Procedure Start Time: Procedure Stop Time: : Location of Patient: PreOp Indication: Acute Post-Operative Pain, Requested by Surgeon (Dr Pond) Sedation Type: Sedate with meaningful contact maintained Preparation: Sterile Prep Position: Prone Catheter: None Needle Types: Pajunk Needle Gauge: 21 Ultrasound used to visualize needle placement: Yes Ultrasound used to observe medication spread: Yes Injectate: 0.5% Ropivacaine (see comment for volume) (15cc +5cc PF Normal saline each side) Blood Aspirated: No Pain Paresthesia on Injection Noted: No Resistance on Injection: Normal Image Stored and Saved: Yes Events: Uneventful and Well Tolerated
[2021-06-08 14:42] VITALS: TEMP 96.9
--- NOTE | 2021-06-08 14:50 | P.OP ---
Date of Procedure: 06/08/21 Description of Procedure: SURGEON: SUJATA DUKES MD PREOPERATIVE DIAGNOSES: 1. Epigastric abdominal pain 2. Abnormal computed tomography scan with internal hernia 3. History of gastric bypass POSTOPERATIVE DIAGNOSES: 1. Epigastric abdominal pain 2. Abnormal computed tomography scan with internal hernia 3. History of gastric bypass 4. Small bowel obstruction 5. Internal hernia with small bowel volvulus OPERATION: 1. Robotic-assisted da Leia Xi laparoscopic with extensive lysis of adhesions over 1 hr ESTIMATED BLOOD LOSS: 10 mL. SPECIMENS REMOVED: None. COMPLICATIONS: None. OPERATIVE FINDINGS: 1. No ventral hernias identified. 2. Adhesions along the epigastrium, left upper quarant 3. Long mesentery of the small bowel with small bowel volvulus reduced 4. Complete scarring of Turner defect and jejunojejunostomy mesenteric defect 5. Abnormal adhesions of biliopancreatic limb jejunostomy to felicia limb divided 6. Serosal oversew of jejunum proximal to jejunojejunostomy Adhesive bands, new left upper quadrant sharply lysed contributing to internal hernia and volvulus Severe scarring of small bowel from prior exploratory laparotomy Severe interloop adhesions including abdominal wall adhesions requiring 1-2 hours extensive lysis of adhesions INDICATIONS: The patient is a 51-year-old female who presents with epigastric abdominal pain including left upper quadrant abdominal pain. Surgical intervention with diagnostic laparoscopy, lysis of adhesions were described. Informed consent was obtained. Robotic assisted laparoscopic approach was described. Benefits and risks of the procedure including but not limited to bleeding, infection, injury to the small bowel was described. Informed consent was obtained. DESCRIPTION OF PROCEDURE: Patient was brought to the operating room, placed in supine position. After general induction, the abdomen had been prepped and draped in standard sterile fashion. The robotic da Leia XI system was primed. After a timeout protocol was performed, the patient had been prepped and draped in standard sterile fashion. The robot was docked along the right lateral abdomen. The patient was repositioned in with right side up. Please note prior to docking of the robot; however, a 5 mm 0 degrees laparoscopic trocar entry was performed along the left upper quadrant. The abdomen was insufflated to 15 mmHg pressure which she tolerated well. Diagnostic laparoscopy was performed. Next, three 8 mm robotic ports were placed along the right lateral abdominal wall. The camera 8-mm port was maintained along mid-lateral abdomen. Please note that the ports were placed at least 10 to 15 cm away from the target anatomy. Instruments including graspers and vessel sealer were interchanged by the entry level assistant manager. I had sat at the console. No evidence of incisional hernia was identified. The rest of the abdomen was unremarkable for small bowel pathology. The small bowel from the felicia limb to distal ileum was inspected. The small bowel was investigated from the terminal ileum to the ligament of Treitz with finding of redundant mesentery with active small bowel volvulus involving the jejunum to the jejunojejunostomy mesenteric defect. Abnormal adhesions to the jejunojejunostomy was identified and divided. The mesentery small bowel volvulus were reduced. Adhesions along the epigastrium linvolving the transverse colon to the felicia limb with an active internal hernia was lysed using vessel sealer. No herniation of bowel was found along the Turner defect or jejunojejunostomy mesenteric defect. Adhesion of gastrojejunal anastomosis to the anterior abdominal wall was released. Moderate gaseous distention of sigmoid colon was identified with an active sigmoid volvulus similarly reduced secondary to highly redundant colon. The terminal ileum and cecum was unremarkable. Extensive lysis of adhesions over 1 hr was performed. The small bowel was viable.The robot was undocked. All pneumoperitoneum instruments were evacuated from the abdominal cavity. The incisions were reapproximated using 4-0 Monocryl in an interrupted subcuticular fashion. Please note along the trocar sites, local anesthetic was placed as a field block prior to insertion of all instruments. Exofin was applied to the skin. At the end of the procedure needle, sponge, and instrument count had been verified correct by the surgical instruments inspector. The patient was transferred to postanesthesia care unit in stable condition. Plan - Discharge Summary Discharge Rx Participant: No New Discharge Prescriptions: New Simethicone 40 mg/0.6 ml Drops [Mylicon Drops] 40 mg PO PCHS PRN #30 ml PRN Reason: Gas Omeprazole [PriLOSEC] 40 mg PO DAILY #30 cap Acetaminophen Tab [Tylenol Tab] 1,000 mg PO Q6HR PRN #30 tablet PRN Reason: Pain bisacodyL [Dulcolax] 5 mg PO DAILY PRN #10 tab PRN Reason: Constipation Ondansetron Odt [Zofran Odt] 4 mg PO Q8HR PRN #9 tab PRN Reason: Nausea Continue Omeprazole 20 mg PO HS Pramipexole [Mirapex] 0.5 - 1 mg PO HS Discontinued Acetaminophen Tab [Tylenol] 1,000 mg PO Q6HR PRN #12 tab PRN Reason: Pain Discharge Medication List Omeprazole 20 mg PO HS 09/11/20 [History] Pramipexole [Mirapex] 0.5 - 1 mg PO HS 09/11/20 [History] Acetaminophen Tab [Tylenol Tab] 1,000 mg PO Q6HR PRN #30 tablet 06/08/21 [Rx] Omeprazole [PriLOSEC] 40 mg PO DAILY #30 cap 06/08/21 [Rx] Ondansetron Odt [Zofran Odt] 4 mg PO Q8HR PRN #9 tab 06/08/21 [Rx] Simethicone 40 mg/0.6 ml Drops [Mylicon Drops] 40 mg PO PCHS PRN #30 ml 06/08/21 [Rx] bisacodyL [Dulcolax] 5 mg PO DAILY PRN #10 tab 06/08/21 [Rx] [facility]ment[facility] [place] [facility] [place] [facility] Patient Instructions/Handouts: Lysis of Abdominal Adhesions (DC), *[facility] - Managing Your Pain After Surgery Without Opioids, Low Fiber Diet (ED) Activity/Diet/Wound Care/Special Instructions: Low fiber diet--vegetables and fruits should be blended or thoroughly chewed. No lifting over 10 pounds in 2 weeks until June 22. May shower. No bath tub soaks for two weeks until June 22. Diet as tolerated. Use Tylenol, simethicone and ibuprofen or Aleve scheduled for the next 24-48 hours for best pain relief. Use ice along incisions for today to prevent swelling. Discharge Disposition: HOME SELF-CARE
[2021-06-08 14:59] VITALS: RESP 14
[2021-06-08] MEDS ORDERED: ACETAMINOPHEN TAB 500 MG TAB ONE (15:41)
[2021-06-08] MEDS ORDERED: ACETAMINOPHEN TAB 500 MG TAB PO ONE (15:53)
[2021-06-08 15:56] VITALS: BP 116/79; PULSE 64
== END 2021-06-08 16:48 | disposition home or self-care (01) ==
LOC: OR 09:12
PROVIDERS: ATTEND Surgery Plastic and Reconstructive Surgery
DX: K66.0 Peritoneal adhesions (postprocedural) (postinfection) (principal); K56.609 Unspecified intestinal obstruction, unspecified as to partial versus complete obstruction; K45.8 Other specified abdominal hernia without obstruction or gangrene; Z98.84 Bariatric surgery status; K21.9 Gastro-esophageal reflux disease without esophagitis; M19.90 Unspecified osteoarthritis, unspecified site; G25.81 Restless legs syndrome; Z79.899 Other long term (current) drug therapy; Z88.8 Allergy status to other drugs, medicaments and biological substances; Z88.5 Allergy status to narcotic agent; Z87.891 Personal history of nicotine dependence; Z77.22 Contact with and (suspected) exposure to environmental tobacco smoke (acute) (chronic)
CPT/HCPCS: 44180; 64999; J2250; J0330 ×2; J1200; J1644; J1100; J2710; J0690; J2405; J2001; J3010; J1170; J2795; J2370

== ENCOUNTER → 2021-06-22 | Outpatient (CLI) | payer OTHER ==
[2021-06-22 10:08] VITALS: BP 128/85; PULSE 70; TEMP 98.2; BMI 33.8
--- NOTE | 2021-06-22 10:57 | P.BASOAP ---
Subjective Progress Note Date: 06/22/21 DATE OF SERVICE: 06/22/2021 CHIEF COMPLAINT: Status post gastric bypass. HISTORY OF PRESENT ILLNESS: Suzanne Santamaria is a 50 year old female status post robotic gastric bypass, 06/08/16. She is 5 years out. She is status post lysis of adhesions, 06/08/2021. She is 2 weeks out. She reports intermittent abdominal cramping. She reports tenderness from bilateral trocar incisions of the right and left upper quadrant. She reports tenderness at the umbilicus. She has food fear. She had drank alcohol in the past without symptoms but now has intolerance. Otherwise, no infection. At her height of 5 feet 3-3/4 inch frame, her ideal body weight is 140 pounds. Her highest weight is 256 pounds. She comes in 191 pounds from 193 pounds, 2 weeks ago. She has lost 2 pounds in 2 weeks. She has lost 65 pounds lifetime. Her body mass index is reduced from 44.4 down to 33.8. Lifetime percent excess weight loss is 56%. PHYSICAL EXAM: VITAL SIGNS: 5 feet 3 3/4 inch frame, 191 pounds, body mass index 33.8 Vital Signs Temp 98.2 F 06/22/21 10:03 Pulse 70 06/22/21 10:03 Resp BP 128/85 06/22/21 10:03 Pulse Ox Intake & Output 06/22/21 06/23/21 06/23/21 18:59 06:59 18:59 Weight 86.636 kg GENERAL: Well-developed, pleasant female in no acute distress. HEENT: No clubbing, cyanosis, or edema. NECK: Supple without lymphadenopathy. CHEST: Nonlabored respirations. Equal bilateral excursions. CARDIOVASCULAR: Regular rate and rhythm. ABDOMEN: Soft, nondistended. No infection. Incisions granulated. No peritonitis. All wounds granulated. MUSCULOSKELETAL: No clubbing, cyanosis or edema. NEURO: No focal or lateralizing signs. Cranial nerves II through XII grossly within normal limits. PSYCH: Alert and order person place and time. Appropriate affect. SKIN: Well perfused. Good skin turgor. ASSESSMENT: 1. Morbid obesity due to excess calories. 2. Body mass index reduced from 44.4 down to 33.8 3. Status post Aftab-En-Y gastric bypass. 4. Gastroesophageal reflux disease 5. Epigastric abdominal pain 6. Chronic constipation. 7. Status post lysis of adhesions. 8. History of bowel obstruction. PLAN: 1. Patient encouraged to eat and she may be back on diet. 2. Risk of dumping syndrome reviewed with alcohol and high sugar foods/beverages. 3. Also risk of recurrent scar tissue also described. 4. Patient advised to notify bariatric center for any increased abdominal pain. 5. Close follow-up advised. Objective - Vital Signs Vital signs: Vital Signs Temp 98.2 F 06/22/21 10:03 Pulse 70 06/22/21 10:03 Resp BP 128/85 06/22/21 10:03 Pulse Ox Intake & Output 06/21/21 06/22/21 06/22/21 18:59 06:59 18:59 Weight 86.636 kg Assessment/Plan Plan: Date: 06/22/21 Initial Weight: 113.398 kg Initial BMI: 44.2 Current Weight: 86.636 kg Current BMI: 33.8 Type of Surgery: Total Volume in Band: Previous Volume: Volume Removed: Volume Added: Band Size:
== END ==
LOC: BARWHC3 08:59
PROVIDERS: ATTEND Surgery Plastic and Reconstructive Surgery
DX: E66.01 Morbid (severe) obesity due to excess calories (principal); K21.9 Gastro-esophageal reflux disease without esophagitis; K59.09 Other constipation; Z98.890 Other specified postprocedural states; Z87.19 Personal history of other diseases of the digestive system; Z98.84 Bariatric surgery status; Z68.33 Body mass index [BMI] 33.0-33.9, adult; Z87.891 Personal history of nicotine dependence; Z88.0 Allergy status to penicillin; Z88.5 Allergy status to narcotic agent
CPT/HCPCS: 99211

== ENCOUNTER → 2021-08-08 | Outpatient (CLI) | payer OTHER ==
[2021-08-08 17:21] LABS: INR 0.9 (<1.2); Partial Thromboplastin Time 23.2 sec (22.0-30.0); Prothrombin Time 10.4 sec (9.0-12.0)
[2021-08-08 23:18] LABS: MCHC 31.1 g/dL (32.0-37.0); MCV 99.8 fL (80.0-97.0); NRBC Per 100 WBC 0 /100 WBCS (0.0-0.0); Platelet Count 198 X 10*3/uL (140-440); RBC 4.51 X 10*6/uL (4.10-5.20); RDW 12.4 % (11.5-14.5); WBC 5.84 X 10*3/uL (4.50-10.00)
[2021-08-08 23:54] LABS: % Iron Saturation 18.36 (12.00-45.00); ALT 25 U/L (8-44); AST 27 U/L (13-35); African American GFR (CKD) 97.8 (60.0-200.0); Albumin 4.5 g/dL (3.8-4.9); Albumin/Globulin Ratio 2.26 (1.60-3.17); Alkaline Phosphatase 60 U/L (41-126); BUN/Creat Ratio 14.57 Ratio (12.00-20.00); Blood Urea Nitrogen 11.7 mg/dL (9.0-27.0); Calcium 9.7 mg/dL (8.7-10.3); Carbon Dioxide 25.7 mmol/L (20.0-27.5); Chloride 104 mmol/L (96-109); Ferritin 60.2 ng/mL (10.0-291.0); Glucose 111 mg/dL (70-110); Iron 64 ug/dL (50-170); LDL Cholesterol,Calculated 87.5 mg/dL (0.0-131.0); Magnesium 2.3 mg/dL (1.5-2.4); Non-African American GFR(CKD) 84.4 (60.0-200.0); Phosphorus 4.3 mg/dL (2.4-5.1); Potassium 4.1 mmol/L (3.5-5.5); Prealbumin 19.7 mg/dL (18.0-42.0); Sodium 143 mmol/L (135-145); Total Iron Binding Capacity 349 ug/dL (228-460); Total Protein 6.5 g/dL (6.2-8.2)
[2021-08-09 13:27] LABS: Zinc, Serum 82 ug/dL (60-130)
== END | disposition home or self-care (01) ==
LOC: LABWHC1 16:11
PROVIDERS: ATTEND Surgery Plastic and Reconstructive Surgery
DX: E66.01 Morbid (severe) obesity due to excess calories (principal); D50.8 Other iron deficiency anemias; K91.2 Postsurgical malabsorption, not elsewhere classified; E89.1 Postprocedural hypoinsulinemia; E44.1 Mild protein-calorie malnutrition; E45 Retarded development following protein-calorie malnutrition; E55.9 Vitamin D deficiency, unspecified; K74.1 Hepatic sclerosis; N19 Unspecified kidney failure; T56.894A Toxic effect of other metals, undetermined, initial encounter; K50.90 Crohn's disease, unspecified, without complications
CPT/HCPCS: 36415; 80053; 80061; 82306; 82525; 82607; 82728; 82746; 83036; 83540; 83550; 83735; 83970; 84100; 84134; 84255; 84425; 84443; 84590; 84630; 85027; 85610; 85730